=== PATIENT | female | born 1985 | race African-American/Black ===

== ENCOUNTER 2017-10-17 19:10 | Emergency (ER) | payer SELFPAY ==
[2017-10-17 19:11] VITALS: BP 157/100; PULSE 92; RESP 18; TEMP 36.2; O2SAT 99; BMI 40.7
--- NOTE | 2017-10-17 20:32 | RAD_ITS ---
STUDY: X-RAY CHEST REASON FOR EXAM: Female, 32 years old. . Shortness of breath TECHNIQUE: PA and lateral views of the chest. COMPARISON: November 06, 2015 FINDINGS: The lungs are clear and expanded. There is no demonstrated pleural abnormality. Normal size heart. Normal mediastinum and escobar. Normal visualized pulmonary arteries. Normal visualized aortic arch and descending thoracic aorta. Normal visualized thoracic spine. Normal visualized ribs, clavicles, and shoulders. There is no demonstrated abnormality of the visualized soft tissue structures of the upper abdomen. RAD/Chest PA and Lateral IMPRESSION: Normal x-ray examination of the chest. Electronically Signed: Patricio Srinivasan MD at 20:55 EDT , Service support ,
[2017-10-17] MEDS: Oxymetazoline 0.05% 1 SPRAY SPRAY.BTL 2 SPRAY NASAL (20:44)
[2017-10-17] MEDS: Naproxen 500 MG Tablet PO (20:44)
--- NOTE | 2017-10-17 21:21 | ED.VISSUMM ---
- ER Visit Summary Date of Service: 10/17/17 Chief Complaint: Cough and fatigue History of Present Illness: The patient is a 32 F with a 3-4 day history of illness. She states it started out with sore throat that progressed to head and chest congestion. She has cough with thick yellow mucus. She does report wheezing. She reports drainage in the back of her throat and body aches. She denies fever but has had chills. Patient has been taking DayQuil, Sudafed, ibuprofen, and Tylenol. Physical Examination: Vital signs are significant for blood pressure 157/100, otherwise unremarkable. Pulse ox is 99% on room air. Head neck examination reveals TMs to be clear bilaterally. She has clear nasal discharge. She does have mild posterior pharyngeal drainage. Mild bilateral cervical lymphadenopathy is noted. Heart is regular rate and rhythm. Lung sounds are clear. Abdomen is soft nontender. Test Results: Two-view chest x-ray reveals no focal infiltrate. Emergency Department Course and Treatment: Patient was given Mucinex, Naprosyn, Afrin, and albuterol MDI. On repeat evaluation patient states she feels significantly improved and feels that she is breathing much better. Lungs are clear with good air movement. Patient will take the albuterol MDI and Afrin home with her for use. She was decided to get Mucinex [id number]. Treatment Plan: [] Disposition: Discharge Impression: Viral syndrome This note was generated with [employer] dictation software. It may contain incorrect words, spelling, and punctuation that were not noted in review of the chart prior to signing ED Disposition - Plan for ED Patient: Disposition: Home or Assisted Living Chief Complaint: Cold Sx Instructions: ED Viral Syndrome Referrals: Medardo Neumann III, MD [STAFF PHYSICIAN] - As Needed
[2017-10-17] MEDS: guaiFENesin 1,200 MG Tablet 1200 MG PO (21:39)
[2017-10-17 21:45] VITALS: PULSE 80; RESP 16; O2SAT 100
== END 2017-10-17 21:46 | disposition home or self-care (01) ==
PROVIDERS: Emergency Provider Emergency Medicine
DX: B34.9 Viral infection, unspecified (principal); R05 Cough; J02.9 Acute pharyngitis, unspecified; R06.00 Dyspnea, unspecified; M79.1 Myalgia; I10 Essential (primary) hypertension
CPT/HCPCS: 71046; 99283

== ENCOUNTER 2018-06-17 19:42 | Emergency (ER) | payer SELFPAY ==
[2018-06-17 19:42] VITALS: PULSE 62; RESP 19; TEMP 36.7; O2SAT 100; BMI 42.5
--- NOTE | 2018-06-17 20:22 | ED.DCSUM_ITS ---
History of Present Illness Chief Complaint: Complaint Informant: Patient Onset: Days - 2-3 Context: Gradual Onset Timing: Continuous Quality: burning dysuria Location: perineal Current Severity: Moderate Maximum Severity: Moderate Worsened by: urinating Relieved by: nothing Associated Symptoms: urgency, urinary frequency, generalized abd bloating/discomfort Narrative: No back discomfort. Little nausea, no vomiting or fevers. Feels like prior urinary tract infections. No vaginal discharge or bleeding, her last normal menstrual period was about 2 months ago, states she is on control pills but skipped a dose a day or 2 ago because of the nausea. Past Medical History - Allergies and Home Meds Allergies/Adverse Reactions: Allergies No Known Allergies Allergy (Verified 06/17/18 19:42) Primary Care Physician: NOT,DEFINED [NON-STAFF] - Past Medical History: None Lives: With Family Smoking Status: Former smoker Review of Systems All systems negative except as indicated General: Denies: Chills, Fever Cardiovascular: Denies: Chest pain, Palpitations Respiratory: Denies: Dyspnea, Cough Gastrointestinal: Reports: Abdominal pain, Nausea. Denies: Vomiting, Diarrhea, Melena, Hematochezia Genitourinary: Reports: Dysuria, Frequency. Denies: Hematuria Musculoskeletal: Denies: Neck pain, Back pain, Extremity Pain Physical Exam Vital Signs/Narrative: Vital Signs Temp Pulse Resp Pulse Ox 06/17/18 19:42 98.1 F 62 19 H 100 Inital Vital Signs reviewed: Yes General: Well nourished, Well developed, Obese, - - Well-appearing, NAD Head: Normocephalic, Atraumatic Eyes: Perrl, EOMI ENT: Moist mucous membranes, No rhinorrhea Neck: Supple, Nontender Cardiovascular: Regular rate, Regular rhythm, No murmurs Respiratory: No distress, CTA bilaterally, Chest nontender Abdomen: Soft, Nondistended, Normal bowel sounds, Tender - Very mild lateral aspect of bilateral upper quadrants only. Negative for: Guarding, Rebound tenderness Back: Nontender, Normal Inspection. Negative for: CVA tenderness Extremities: Nontender, No edema Skin: Normal color, No rash Neurological: Alert, Oriented x3, Cranial nerves II-XII grossly intact, Normal Strength, Normal Sensation, Normal Gait Psychological: Normal affect Diagnostic/Tx/Re-eval Laboratory Tests 06/17/18 Range/Units 20:20 Urine Color Yellow (Yellow) Urine Clarity Clear (Clear) Urine pH 6.0 (5.0 - 8.0) Ur Specific [place] 1.015 (1.002-1.030) Urine Protein Negative (Negative) mg/dl Urine Glucose (UA) Normal (Normal) mg/dl Urine Ketones Negative (Negative) mg/dl Urine Occult Blood 50 H (Negative) /ul Urine Nitrite Negative (Negative) Urine Bilirubin Negative (Negative) mg/dL Urine Urobilinogen Normal (Normal) mg/dl Ur Leukocyte Esterase 25 H (Negative) /ul Urine RBC 0-5 SEEN (0-5) /hpf Urine WBC 0-5 SEEN (0-5) /hpf Ur Squamous Epith Cells 5-10 SEEN (5-10) /hpf Urine Bacteria 0 SEEN (None Seen) /hpf Urine Mucus 0 SEEN (<or=2+) /hpf Urine Test Negative Negative - Medical Decision Making Urinalysis shows trace leukocyte esterase but no pyuria or any other indicators of infection. She was given a GI cocktail, and her symptoms resolved, she feels much better. I suspect she is having intestinal discomfort, she states eating makes it worse, especially red meat. I do not think she is having biliary colic. We discussed signs and symptoms of that and reasons to return to the ER, otherwise she was given follow-up because she does not have a doctor, as well as a prescription for an H2 radha. She is comfortable with this plan. ED Disposition - Plan for ED Patient: Disposition: Home or Assisted Living Chief Complaint: Complaint Diagnosis: Diffuse abdominal pain Instructions: ED Abdominal Pain Unkn Cause Prescriptions: Ranitidine [Zantac] 150 mg PO DAILY #30 tab Referrals: Fast,Cece, DO [NON-STAFF] - 1 Week if not improving
[2018-06-17 20:23] LABS: Bacteria 0 SEEN /hpf (None Seen); Color, Urine Yellow (Yellow); Glucose, Dipstick Normal (Normal); Ketone-Dipstick Negative (Negative); Leukocyte Esterase-Dipstick 25 /ul (Negative); Mucous, Urine 0 SEEN /hpf (<or=2+); Nitrite-Dipstick Negative (Negative); Occult Blood-Urine 50 /ul (Negative); Protein-Dipstick Negative (Negative); Specific Gravity, Urine 1.015 (1.002-1.030); Urine Bilirubin Dipstick Negative (Negative); Urine Clarity Clear (Clear); Urine Urobilinogen Normal (Normal)
[2018-06-17 20:27] LABS: Internal QC Validated? YES +Cl - CLEAR BKGD
[2018-06-17 20:28] LABS: Pregnancy, Urine Negative Negative
[2018-06-17 20:31] LABS: Red Blood Cells-Urine 0-5 SEEN /hpf (0-5); Squamous Epithelial Cells - UA 5-10 SEEN /hpf (5-10); White Blood Cells 0-5 SEEN /hpf (0-5)
[2018-06-17] MEDS: Ibuprofen 600 MG Tablet PO (20:36)
[2018-06-17] MEDS: Mag Hydrox/Al Hydrox/Simeth 30 ML UDC PO (21:17)
[2018-06-17 22:15] VITALS: PULSE 76; RESP 17; O2SAT 98
--- OUTSIDE RECORDS SUMMARY | 2018-08-04 03:35 | XMS RPT_ITS ---
:1985 Author Organization [facility] Care Team Providers Name Role Phone FILI HERNANDEZ Referring Unavailable FILI HERNANDEZ Referring Unavailable Primay Care Physicia, No Primary Care Unavailable DION THORPE Attending Unavailable Primay Care Physicia, No Primary Care Unavailable Cherri Hendrix Attending Unavailable Primay Care Physicia, No Primary Care Unavailable Marlo Hoffmann Attending Unavailable PROBLEMS PROBLEMS DATE TYPE CONDITION / CODE ATTENDING STATUS SOURCE 09/20/2017 Active Pain in left NA Active [facility] knee / Main [place] M25.562(ICD-10) Repository PROCEDURES PROCEDURES No Procedure Records FoundRESULTS RESULTS EMERGENCY DEPARTMENT Observed: 07/10/2018 Status: F Source: [place] SUMMARY 4:02 PM [facility] [place] [facility] Medical Records Department [address] [place] [address] Emergency Department Summary 07/10/18 1505 MR#: [id number] Acct: [id number] Name: ISRAEL STRICKLAND Rep #: [id number] : 1985 33 From: Marlo Hoffmann MD PCP: Care Physician, No Primary Status: DEP ER - ER Visit Summary Date of Service: 07/10/18 Chief Complaint: Dental pain History of Present Illness: The patient is a 33 F with dental pain for days. The pain is in her left mandibular molar region. It radiates under her left mandible. No other associated symptoms or past medical history. Physical Examination: Afebrile. Hypertensive. Otherwise vitals normal. Alert and oriented. No acute distress. Inspection unremarkable. Patient has some tenderness in the left submandibular region but no discrete masses or lymphadenopathy. Left mandibular gums are tender to palpation without obvious abscess. Inspection of her mouth is unremarkable. Neck unremarkable otherwise. Test Results: None indicated Emergency Department Course and Treatment: Patient has focal dental pain. Patient may have some lymphadenopathy. No evidence of tongue elevation or trismus. Patient treated with Pen-Vee K, Motrin, and referral to dental. Treatment Plan: As above Disposition: Discharge Impression: 1. Dental pain This note was generated with Zenverge dictation software. It may contain incorrect words, spelling, and punctuation that were not noted in review of the chart prior to signing ED Disposition - Plan for ED Patient: Chief Complaint: Dental Referrals: Care Physician,No Primary [Primary Care Provider] - What to do if you have Problems For any increased pain, shortness of breath, bleeding, nausea or vomiting, chest pain, or any unexpected problems, contact your Primary Care Provider. Call [facility] ([phone]) or report to the closest Emergency Room. Call 911 if necessary. 07/10/18 1602 <Electronically signed by Marlo Hoffmann MD> Date Marlo Hoffmann MD Cosigner Signature (If Indicated): Date CC: No Primary Care Physician DISCHARGE INSTRUCTION Observed: 07/10/2018 Status: F Source: [place] 4:01 PM [facility] [place] [facility] Medical Records Department [address] [place] [address] Discharge Instruction 07/10/18 1510 MR#: [id number] Acct: [id number] Name: ISRAEL STRICKLAND N Rep #: [id number] : 1985 33 From: Marlo Hoffmann MD PCP: Care Physician, No Primary Status: DEP ER ED Disposition - Plan for ED Patient: Chief Complaint: Dental Instructions: ED Tooth Pain Prescriptions: Ibuprofen [Motrin] 800 mg PO TID PRN PRN #15 tab PRN Reason: Pain Penicillin V Potassium 500 mg PO Q6H 10 Days #40 tab Referrals: Marylu Bah [NON-STAFF] - What to do if you have Problems For any increased pain, shortness of breath, bleeding, nausea or vomiting, chest pain, or any unexpected problems, contact your Primary Care Provider. Call [facility] ([phone]) or report to the closest Emergency Room. Call 911 if necessary. 07/10/18 1601 <Electronically signed by Marlo Hoffmann MD> Date Marlo Hoffmann MD Cosigner Signature (If Indicated): Date CC: No Primary Care Physician EMERGENCY DEPARTMENT Observed: 06/17/2018 Status: F Source: [place] SUMMARY 10:03 PM [facility] [place] [facility] Medical Records Department [address] [address] Emergency Department Summary 06/17/182012 MR#: [id number] Acct: [id number] Name: ISRAEL STRICKLAND N Rep #: [id number] : 1985 33 From: Dion Thorpe MD PCP: Care Physician, No Primary Status: REG ER History of Present Illness Chief Complaint: Complaint Informant: Patient Onset: Days - 2-3 Context: Gradual Onset Timing: Continuous Quality: burning dysuria Location: perineal Current Severity: Moderate Maximum Severity: Moderate Worsened by: urinating Relieved by: nothing Associated Symptoms: urgency, urinary frequency, generalized abd bloating/discomfort Narrative: No back discomfort. Little nausea, no vomiting or fevers. Feels like prior urinary tract infections. No vaginal discharge or bleeding, her last normal menstrual period was about 2 months ago, states she is on control pills but skipped a dose a day or 2 ago because of the nausea. Past Medical History - Allergies and Home Meds Allergies/Adverse Reactions: Allergies No Known Allergies Allergy (Verified 06/17/18 19:42) Primary Care Physician: NOT,DEFINED [NON-STAFF] - Past Medical History: None Lives: With Family Smoking Status: Former smoker Review of Systems All systems negative except as indicated General: Denies: Chills, Fever Cardiovascular: Denies: Chest pain, Palpitations Respiratory: Denies: Dyspnea, Cough Gastrointestinal: Reports: Abdominal pain, Nausea. Denies: Vomiting, Diarrhea, Melena, Hematochezia Genitourinary: Reports: Dysuria, Frequency. Denies: Hematuria Musculoskeletal: Denies: Neck pain, Back pain, Extremity Pain Physical Exam Vital Signs/Narrative: Vital Signs 06/17/18 19:42 98.1 F 62 19 H 100 Inital Vital Signs reviewed: Yes General: Well nourished, Well developed, Obese, - - Well-appearing, NAD Head: Normocephalic, Atraumatic Eyes: Perrl, EOMI ENT: Moist mucous membranes, No rhinorrhea Neck: Supple, Nontender Cardiovascular: Regular rate, Regular rhythm, No murmurs Respiratory: No distress, CTA bilaterally, Chest nontender Abdomen: Soft, Nondistended, Normal bowel sounds, Tender - Very mild lateral aspect of bilateral upper quadrants only. Negative for: Guarding, Rebound tenderness Back: Nontender, Normal Inspection. Negative for: CVA tenderness Extremities: Nontender, No edema Skin: Normal color, No rash Neurological: Alert, Oriented x3, Cranial nerves II-XII grossly intact, Normal Strength, Normal Sensation, Normal Gait Psychological: Normal affect Diagnostic/Tx/Re-eval Laboratory Tests Urine Color Yellow (Yellow) Urine Clarity Clear (Clear) Urine pH 6.0 (5.0 - 8.0) Ur Specific Noonan 1.015 (1.002-1.030) Urine Protein Negative (Negative) mg/dl - Medical Decision Making Urinalysis shows trace leukocyte esterase but no pyuria or any other indicators of infection. She was given a GI cocktail, and her symptoms resolved, she feels much better. I suspect she is having intestinal discomfort, she states eating makes it worse, especially red meat. I do not think she is having biliary colic. We discussed signs and symptoms of that and reasons to return to the ER, otherwise she was given follow-up because she does not have a doctor, as well as a prescription for an H2 radha. She is comfortable with this plan. ED Disposition - Plan for ED Patient: Disposition: Home or Assisted Living Chief Complaint: Complaint Diagnosis: Diffuse abdominal pain Instructions: ED Abdominal Pain Unkn Cause Prescriptions: Ranitidine [Zantac] 150 mg PO DAILY #30 tab Referrals: Fast,Cece, DO [NON-STAFF] - 1 Week if not improving What to do if you have Problems For any increased pain, shortness of breath, bleeding, nausea or vomiting, chest pain, or any unexpected problems, contact your Primary Care Provider. Call [facility] ([phone]) or report to the closest Emergency Room. Call 911 if necessary. 06/17/182202 <Electronically signed by Dion Thorpe MD> Date Dion Thorpe MD Cosigner Signature (If Indicated): Date CC: No Primary Care Physician URINALYSIS, COMPLETE Collected: 06/17/2018 Status: C Source: [place] 8:20 PM [facility] [place] Order Comment: How was Urine Obtained? CLEAN CATCH TYPE CODE TESTS RESULT OUT OF RANGE REFERENCE UNITS LAB L400.3000 Yellow COLOR Normal Yellow LAB L400.3050 Clear Normal CLARITY Clear LAB L400.3200 Normal mg/dl Normal GLUCOSE, UR Normal LAB L400.3300 Negative mg/dL Normal BILIRUBIN URINE Negative LAB L400.3400 Negative mg/dl Normal KETONE UR Negative LAB L400.3465 1.002-1.030 Normal SP.GR. DIPSTX 1.015 LAB L400.3550 5.0 - 8.0 pH UR Normal 6.0 LAB L400.3600 Negative mg/dl PROT Normal DIPSTX Negative LAB L400.3700 Normal mg/dl Normal UROBILI Normal LAB L400.3750 Negative Normal NITRITE UR Negative LAB L400.3780 Negative /ul High 50 OCCULT BLOOD-UR LAB L400.3800 Negative /ul High LEUK 25 ESTERASE LAB L400.4050 0-5 /hpf WBC Normal 0-5 SEEN Result Comment: AMENDED REPORT 06/17/182030 WBC previously reported as: 0 SEEN /hpf LAB L400.4100 0-5 /hpf Normal RBC-UA 0-5 SEEN Result Comment: AMENDED REPORT 06/17/182030 RBC-UA previously reported as: 0 SEEN /hpf LAB L400.4150 5-10 /hpf Normal SQUAM EPI 5-10 SEEN Result Comment: AMENDED REPORT 06/17/182030 SQUAM EPI previously reported as: 0 SEEN /hpf LAB L400.4300 None Seen /hpf Normal BACTERIA 0 SEEN LAB L400.4350 <or=2+ /hpf Normal MUCUS, URINE 0 SEEN Performed By: #### L400.0001, L400.7600 #### [facility] [address] [place], [place], [address] ,URINE Collected: 06/17/2018 Status: F Source: [place] 8:20 PM [facility] [place] Order Comment: How was Urine Obtained? CLEAN CATCH TYPE CODE TESTS RESULT OUT OF REFERENCE UNITS RANGE LAB L400.8000 Negative Normal HCGUQUAL Negative Result Comment: Very dilute urine specimens, as indicated by a low specific gravity, may not contain underwriting account representative levels of hCG. If is still suspected, a first morning urine specimen should be collected 48 hours later and tested. Performed By: #### L400.0001, L400.7600 #### [facility] [address] [place], [address] Observed: 06/17/2018 Status: F Source: [place] CULTURE, URINE 8:20 PM [facility] [place] Urine Culture ORGANISM 1: Mixed Gram Positive Organisms [place] Count 1000-10,000 MIX CULTURE Mixed contaminants. Submit a new specimen if indicated. Performed By: #### M100.0650 #### [facility] [address] [place], [address] CNCO Observed: 01/15/2018 Status: COMPLETED Source: [place] 12:00 AM [facility] REPOSITORY Letter Text Dion Winkler MD [facility] [address] [place] [address] Israel Tiara Strickland January 15, 2018 Israel Anneten [address] [place] [address] Dear Ms. Strickland, It was noted that you did not keep your scheduled appointment on 01/15/18. It is important to contact the office in advance if you are unable to keep your appointment so that it is available for other patients. Your medical care is important to us. Please call our office to reschedule an appointment. Sincerely, Dion Winkler MD EMERGENCY DEPARTMENT Observed: 10/18/2017 Status: F Source: [place] SUMMARY 10:09 AM [facility] [place] [facility] Medical Records Department [address] [place] [address] Emergency Department Summary 10/17/17 2121 MR#: [id number] Acct: [id number] Name: ISRAEL STRICKLAND Tiara Rep #: [id number] : 1985 32 From: Cherri Hendrix MD PCP: Care Physician, No Primary Status: DEP ER - ER Visit Summary Date of Service: 10/17/17 Chief Complaint: Cough and fatigue History of Present Illness: The patient is a 32 F with a 3- 4 day history of illness. She states it started out with sore throat that progressed to head and chest congestion. She has cough with thick yellow mucus. She does report wheezing. She reports drainage in the back of her throat and body aches. She denies fever but has had chills. Patient has been taking DayQuil, Sudafed, ibuprofen, and Tylenol. Physical Examination: Vital signs are significant for blood pressure 157/100, otherwise unremarkable. Pulse ox is 99% on room air. Head neck examination reveals TMs to be clear bilaterally. She has clear nasal discharge. She does have mild posterior pharyngeal drainage. Mild bilateral cervical lymphadenopathy is noted. Heart is regular rate and rhythm. Lung sounds are clear. Abdomen is soft nontender. Test Results: Two-view chest x-ray reveals no focal infiltrate. Emergency Department Course and Treatment: Patient was given Mucinex, Naprosyn, Afrin, and albuterol MDI. On repeat evaluation patient states she feels significantly improved and feels that she is breathing much better. Lungs are clear with good air movement. Patient will take the albuterol MDI and Afrin home with her for use. She was decided to get Mucinex [id number]. Treatment Plan: [] Disposition: Discharge Impression: Viral syndrome This note was generated with Zenverge dictation software. It may contain incorrect words, spelling, and punctuation that were not noted in review of the chart prior to signing ED Disposition - Plan for ED Patient: Disposition: Home or Assisted Living Chief Complaint: Cold Sx Instructions: ED Viral Syndrome Referrals: Medardo Neumann III, MD [STAFF PHYSICIAN] - As Needed What to do if you have Problems For any increased pain, shortness of breath, bleeding, nausea or vomiting, chest pain, or any unexpected problems, contact your Primary Care Provider. Call [facility] ([phone]) or report to the closest Emergency Room. Call 911 if necessary. 10/18/17 1009 <Electronically signed by Cherri Hendrix MD> Date Cherri Hendrix MD Cosigner Signature (If Indicated): Date CC: No Primary Care Physician DISCHARGE INSTRUCTION Observed: 10/17/2017 Status: F Source: [place] 9:22 PM [facility] Medical Records Department [address] [place] [address] Discharge Instruction 10/17/172120 MR#: [id number] Acct: [id number] Name: ISRAEL STRICKLAND N Rep #: [id number] : 1985 32 From: Cherri Hendrix MD PCP: Care Physician, No Primary Status: REG ER ED Disposition - Plan for ED Patient: Disposition: Home or Assisted Living Chief Complaint: Cold Sx Instructions: ED Viral Syndrome Referrals: Medardo Neumann III, MD [STAFF PHYSICIAN] - As Needed What to do if you have Problems For any increased pain, shortness of breath, bleeding, nausea or vomiting, chest pain, or any unexpected problems, contact your Primary Care Provider. Call [facility] [facility] ([phone]) or report to the closest Emergency Room. Call 911 if necessary. 10/17/172121 <Electronically signed by Cherri Hendrix MD> Date Cherri Hendrix MD Cosigner Signature (If Indicated): Date CC: No Primary Care Physician CHEST PA AND LATERAL Observed: 10/17/2017 Status: F Source: [place] 8:27 PM [facility] [place] [facility] Imaging Services [address] [place] [address] Chest PA and Lateral MR#: [id number] Acct: [id number] Name: ISRAEL STRICKLAND N Rep #: [id number] : 1985 F 32 From: Dion Srinivasan MD PCP: Care Physician, No Primary Status: REG ER Study: Chest PA and Lateral Date of Exam: 10/17/17 Exam# [id number] Ordering Dr: Cherri Hendrix MD STUDY: X-RAY CHEST REASON FOR EXAM: Female, 32 years old. . Shortness of breath TECHNIQUE: PA and lateral views of the chest. COMPARISON: November 06, 2015 FINDINGS: The lungs are clear and expanded. There is no demonstrated pleural abnormality. Normal size heart. Normal mediastinum and escobar. Normal visualized pulmonary arteries. Normal visualized aortic arch and descending thoracic aorta. Normal visualized thoracic spine. Normal visualized ribs, clavicles, and shoulders. There is no demonstrated abnormality of the visualized soft tissue structures of the upper abdomen. RAD/Chest PA and Lateral IMPRESSION: Normal x-ray examination of the chest. Electronically Signed: Dion Srinivasan MD at 20:55 EDT , Service support , CC: No Primary Care Physician; Cherri Hendrix MD Spaghetti Machine Operator: Signed XR KNEE 3V AP/LAT/MERCHANT Observed: 09/20/2017 Status: F Source: [facility] 3:29 PM [facility] REPOSITORY * * *Final Report* * * DATE OF EXAM: Sep 20 2017 3:29PM WOX 5208 - XR KNEE 3V AP/LAT/MERCHANT LT / PROCEDURE REASON: Pain in left knee * * * * Physician Interpretation * * * * HISTORY: pt states pain for over a month in left knee mostly all anterior with some swelling superior and lateral to the patella no inj. Pain in left knee . TECHNIQUE: XR KNEE 3V AP/LAT/MERCHANT LT Laterality: LEFT Number of different views (projections): 3 COMPARISON: None RESULT: Suprapatellar effusion. Remote opacification of the distal patellar tendon. No fracture. Minimal degenerative changes in the patellofemoral articulation. IMPRESSION: Mild degenerative changes. Spaghetti Machine Operator: JOVITA Transcribe Date/Time: Sep 21 2017 8:43A Dictated by : ELISE FROST MD This examination was interpreted and the report reviewed and electronically signed by: ELISE FROST MD on Sep 21 2017 8:45AM EST [id number] PROGRESS Observed: 09/20/2017 Status: COMPLETED Source: [place] 3:11 PM [facility] [place] REPOSITORY HNO ID: [id number] Author: Anne Burger (Rt) Jocelyn oMffett Service: (none) Author Type: [place] Type: Progress Notes Filed: 09/20/2017 3:29 PM Note Text: Radiology Service Progress Note PATIENT NAME: Israel Strickland DATE OF SERVICE: September 20, 2017 TIME: 3:11 PM PATIENT IDENTITY VERIFICATION COMPLETED USING TWO (2) METHODS: Patient confirmed name verbally and Date of . PATIENT GENDER DATA: Female. status: : No status: NO. PATIENT RELEVANT IMPLANT DATA REVIEWED: Not Applicable RADIOLOGY DEPARTMENT: General X-ray: Exam(s) Completed: Lower Extremity X-Ray(s): Knee, AP / Lat / Merchant Left: PERIPHERAL IV DATA: Not applicable SIGNED BY: RT Norma September 20, 2017 3:11 PM PROGRESS Observed: 09/20/2017 Status: COMPLETED Source: [place] 2:45 PM [facility] REPOSITORY HNO ID: [id number] Author: Fili Hernandez Service: (none) Author Type: Physician Type: Progress Notes Filed: 09/20/2017 3:48 PM Note Text: Patient presents with: Left Knee Pain: x over 1 month-cannot recall an injury but hears a crunching noise in knee HPI: Left knee pain: Duration: probably a couple months Location: Left knee Character: Tight pain Radiation: Into the back of the knee Aggravating: bending, climbing stairs, lifting,standing and walking for extended periods Relieving: Ice, elevation Pain relievers: Motrin Associated: Crepitus, swelling Pertinent negatives: Denies known injury MEDICATIONS: No prescriptions on file. ALLERGIES: ALLERGIES No Known Allergies VITALS: BP 128/82 Pulse 72 Temp 36.1 ?C (97 ?F) (Tympanic) Resp 18 Wt 113 kg (249 lb 3.2 oz) BMI 41.47 kg/m2 PE: Pleasant, in no acute distress. KNEE: left compared to right. Small fullness above the left patella. FROM with pain. Left patellar crepitus. Patellar and medial/lateral joint line tenderness. Stable to varus and valgus strain. Negative anterior drawer test. Negative posterior drawer test. Limping gait. ASSESSMENT/PLAN: 1. Acute pain of left knee - ICD9: 719.46, ICD10: M25.562 - XR KNEE POST OP 3V AP/LAT/MERCHANT LT - no fractures. Tibial tuberosity island and proximal fibular neck enlargement unchanged compared to 2014. - MELOXICAM 15 MG TABLET. Instructed not to take with ibuprofen. She may use tylenol if needed for additional pain relief. F/u with ortho if not improving. Fili Hernandez MD CNOV Observed: 09/20/2017 Status: COMPLETED Source: [place] 2:30 PM [facility] REPOSITORY [facility] ISRAEL STRICKLAND ([id number]) 1985 F Date Time Provider Department 09/20/17 2:30 PM FILI HERNANDEZ [facility] During your visit today, we recorded the following information about you: Temperature Pulse Respiration Blood pressure 97 degrees 72/minute 18/minute 128/82 Weight 113 kg Fili Hernandez MD 09/20/2017 3:48 PM Signed Patient presents with: Left Knee Pain: x over 1 month-cannot recall an injury but hears a crunching noise in knee HPI: Left knee pain: Duration: probably a couple months Location: Left knee Character: Tight pain Radiation: Into the back of the knee Aggravating: bending, climbing stairs, lifting,standing and walking for extended periods Relieving: Ice, elevation Pain relievers: Motrin Associated: Crepitus, swelling Pertinent negatives: Denies known injury MEDICATIONS: No prescriptions on file. ALLERGIES: ALLERGIES No Known Allergies VITALS: BP 128/82 Pulse 72 Temp 36.1 ?C (97 ?F) (Tympanic) Resp 18 Wt 113 kg (249 lb 3.2 oz) BMI 41.47 kg/m2 PE: Pleasant, in no acute distress. KNEE: left compared to right. Small fullness above the left patella. FROM with pain. Left patellar crepitus. Patellar and medial/lateral joint line tenderness. Stable to varus and valgus strain. Negative anterior drawer test. Negative posterior drawer test. Limping gait. ASSESSMENT/PLAN: 1. Acute pain of left knee - ICD9: 719.46, ICD10: M25.562 - XR KNEE POST OP 3V AP/LAT/MERCHANT LT - no fractures. Tibial tuberosity island and proximal fibular neck enlargement unchanged compared to 2014. - MELOXICAM 15 MG TABLET. Instructed not to take with ibuprofen. She may use tylenol if needed for additional pain relief. F/u with ortho if not improving. Fili Hernandez MD Referring Provider: SELF [200] Allergies As of Date: 09/20/2017 (No Known Allergies) Date Reviewed: 09/20/2017 Reviewed by: Paige Jimenez LPN - Fully Assessed Reason for Visit: Left Knee Pain [1208] Cmt: x over 1 month-cannot recall an injury but hears a crunching noise in knee Primary Visit Diagnosis:Acute pain of left knee [M25.562] Order(s):XR KNEE POST OP 3V AP/LAT/MERCHANT LT [[id number]] Order #: [id number] FUTURE meloxicam (MOBIC) 15 mg tabletTake 1 tablet by mouth once daily. With food.Disp: 30 tabletRfl: 0 Prescriptions as of 09/20/2017 Sig: MELOXICAM 15 MG TABLET Take 1 tablet by mouth once d* Medication notes this encounter MELOXICAM 15 MG TABLET >> Paige Besancon [facility] 09/20/2017 2:35 PM >> SCARLETTANCPAIGE TROY LPN [facility] Sep 20, 2017 2:35 PM Not Taking CYCLOBENZAPRINE 10 MG TABLET >> Paige Pantojaancon [facility] 09/20/2017 2:35 PM >> PAIGE JIMENEZ LPN [facility] Sep 20, 2017 2:35 PM Not Taking HYDROCHLOROTHIAZIDE 25 MG TABLET >> Paige Scarlettancon [facility]SELING AIDE 09/20/2017 2:35 PM >> PAIGE JIMENEZ LPN [facility] Sep 20, 2017 2:35 PM Not Taking IBUPROFEN 800 MG TABLET >> Paige Jimenez [facility] 09/20/2017 2:36 PM >> PAIGE JIMENEZ LPN [facility] Sep 20, 2017 2:36 PM Not Taking Problem List As Of Date 09/20/2017 Noted Resolved Screening for malignant neoplasm of the cervix *INVALID FOR* Priority: C Amenorrhea, secondary [N91.1] INVALID FOR* Priority: C PIH ( induced hypertension) [O13.9] Obesity [E66.9] Priority: B Pancreatitis [K85.90] Priority: B More... Excessive or frequent menstruation [N92.0] INVALID FOR* Priority: C Dysmenorrhea [N94.6] INVALID FOR* Priority: C Gallbladder polyp [K82.4] INVALID FOR* Priority: B More... Mixed hyperlipidemia [E78.2] INVALID FOR* Priority: A Right leg pain [M79.604] INVALID FOR* Prescriptions ordered this encounter Disp Refills Start End MELOXICAM 15 MG TABLET 30 t* 0 09/20/2017 10/20/2017 Route: ORAL Sig: Take 1 tablet by mouth once daily. With food. Medications Discontinued During This Encounter predniSONE (DELTASONE) 10 mg tablet 39 t* 0 04/09/2015 09/20/2017 Sig: Take 6 tabs by mouth for 3 days then 4 tabs a day for 3 days then 2 tabs a day for 3 days and then 1 tab a day for 3 days. Disc: Reason for discontinue is not on file. ibuprofen (MOTRIN) 800 mg tablet 90 t* 3 04/12/2015 09/20/2017 Route: ORAL Sig: Take 1 tablet by mouth every 6 hours as needed. Disc: Reason for discontinue is not on file. hydrochlorothiazide (HYDRODIURIL, ES* 30 t* 0 07/26/2015 09/20/2017 Route: ORAL Sig: Take 1 tablet by mouth once daily. Disc: Reason for discontinue is not on file. cyclobenzaprine (FLEXERIL) 10 mg tab* 20 t* 0 09/23/2015 09/20/2017 Route: ORAL Sig: Take 1 tablet by mouth twice daily as needed. Disc: Reason for discontinue is not on file. meloxicam (MOBIC) 15 mg tablet 30 t* 2 09/23/2015 09/20/2017 Route: ORAL Sig: Take 1 tablet by mouth once daily. Disc: Reason for discontinue is not on file. Letter Text [place] [facility] [address] [place], [place] [address] 09/20/2017 Israel Strickland [facility]# [id number] [address] [place] [address] TO WHOM IT MAY CONCERN: This is to confirm that Israel Strickland had an appointment and was seen at the [facility] in the Department of Urgent Care by Fili Hernandez MD on 09/20/2017. Sincerely , Fili Hernandez MD Encounter Status:Closed by FILI HERNANDEZ MD on 09/20/17 ALLERGIES ALLERGIES DATE TYPE / CODE NAME / CODE REACTION SEVERITY SOURCE 07/10/2018 Drug No Known Unknown [facility] Allergy/416 Allergies/[id number] Hospital [id number](SNOM 0388(RXNORM) Repository ED CT) Drug NO KNOWN [facility] Class/03451 ALLERGIES [place] 1003(SNOMED Repository CT) ENCOUNTERS ENCOUNTERS ADMIT/DISCHARGE ACCOUNT ADMITTING ENCOUNTER LOCATION SOURCE NUMBER CLASS 07/10/2018/07/10/19 [id number] Emergency [address] ing:ED Repository 06/17/2018/06/17/20 [id number] Emergency [address] ing:ED Repository 10/17/2017/10/18/19 [id number] Emergency [address] ing:ED Repository 09/20/2017/09/21/19 [id number] Ambulatory [address] Repository 09/20/2017 [id number] Ambulatory [facility] Repository 09/20/2017/09/22/19 [id number] Ambulatory [address] Repository PAYERS PAYERS ENCOUNTER GUARANTOR PAYER SUBSCRIBER SOURCE 07/10/2018 ISRAEL Menjivar Primary NOT GIVENUNK [place] [id number] Insurance:SELF PAY [address] Number: Effective Repository [id number]: [phone] Date:2018-07-10 [phone] () 06/17/2018 ISRAEL Menjivar Primary NOT GIVENUNK [place] [id number] Insurance:SELF PAY [facility] [address] Number: Effective Repository [phone]: [phone] Date:2018-06-17 [phone] () 10/17/2017 Israel Menjivar Primary NOT GIVENKAREN [id number] Insurance:SELF PAY [facility] [address]Zzn: Number: Effective Repository Date:2017-10-17 ()
== END 2018-06-17 22:37 | disposition home or self-care (01) ==
PROVIDERS: Emergency Provider Emergency Medicine
DX: R10.84 Generalized abdominal pain (principal); R30.0 Dysuria; R39.15 Urgency of urination; R35.0 Frequency of micturition; E66.9 Obesity, unspecified; Z79.3 Long term (current) use of hormonal contraceptives; Z87.440 Personal history of urinary (tract) infections; Z87.891 Personal history of nicotine dependence
CPT/HCPCS: 81001; 81025; 87086; 87088; 99283

== ENCOUNTER 2018-07-10 14:40 | Emergency (ER) | payer SELFPAY ==
[2018-07-10 14:41] VITALS: BP 162/105; PULSE 80; RESP 18; TEMP 36.7; O2SAT 97; BMI 46.2
--- NOTE | 2018-07-10 15:05 | ED.VISSUMM ---
- ER Visit Summary Date of Service: 07/10/18 Chief Complaint: Dental pain History of Present Illness: The patient is a 33 F with dental pain for days. The pain is in her left mandibular molar region. It radiates under her left mandible. No other associated symptoms or past medical history. Physical Examination: Afebrile. Hypertensive. Otherwise vitals normal. Alert and oriented. No acute distress. Inspection unremarkable. Patient has some tenderness in the left submandibular region but no discrete masses or lymphadenopathy. Left mandibular gums are tender to palpation without obvious abscess. Inspection of her mouth is unremarkable. Neck unremarkable otherwise. Test Results: None indicated Emergency Department Course and Treatment: Patient has focal dental pain. Patient may have some lymphadenopathy. No evidence of tongue elevation or trismus. Patient treated with Pen-Vee K, Motrin, and referral to dental. Treatment Plan: As above Disposition: Discharge Impression: 1. Dental pain This note was generated with [employer] dictation software. It may contain incorrect words, spelling, and punctuation that were not noted in review of the chart prior to signing ED Disposition - Plan for ED Patient: Chief Complaint: Dental Referrals: Care Physician,No Primary [Primary Care Provider] -
--- NOTE | 2018-07-10 15:10 | ED.DEP ---
ED Disposition - Plan for ED Patient: Chief Complaint: Dental Instructions: ED Tooth Pain Prescriptions: Ibuprofen [Motrin] 800 mg PO TID PRN PRN #15 tab PRN Reason: Pain Penicillin V Potassium 500 mg PO Q6H 10 Days #40 tab Referrals: Marylu Bah [NON-STAFF] -
--- NOTE | 2018-07-10 15:10 | ED.DCSUM_ITS ---
- ER Visit Summary Date of Service: 07/10/18 Chief Complaint: Dental pain History of Present Illness: The patient is a 33 F with dental pain for days. The pain is in her left mandibular molar region. It radiates under her left mandible. No other associated symptoms or past medical history. Physical Examination: Afebrile. Hypertensive. Otherwise vitals normal. Alert and oriented. No acute distress. Inspection unremarkable. Patient has some tenderness in the left submandibular region but no discrete masses or lymphadenopathy. Left mandibular gums are tender to palpation without obvious abscess. Inspection of her mouth is unremarkable. Neck unremarkable otherwise. Test Results: None indicated Emergency Department Course and Treatment: Patient has focal dental pain. Patient may have some lymphadenopathy. No evidence of tongue elevation or trismus. Patient treated with Pen-Vee K, Motrin, and referral to dental. Treatment Plan: As above Disposition: Discharge Impression: 1. Dental pain This note was generated with [employer] dictation software. It may contain incorrect words, spelling, and punctuation that were not noted in review of the chart prior to signing ED Disposition - Plan for ED Patient: Chief Complaint: Dental Referrals: Care Physician,No Primary [Primary Care Provider] -
[2018-07-10] MEDS: Ibuprofen 600 MG Tablet PO (15:42)
[2018-07-10] MEDS: Penicillin Vk 250 MG Tablet 500 MG PO (15:43)
[2018-07-10 15:53] VITALS: PULSE 78; RESP 14; O2SAT 99
== END 2018-07-10 15:54 | disposition home or self-care (01) ==
PROVIDERS: Emergency Provider Emergency Medicine
DX: K08.89 Other specified disorders of teeth and supporting structures (principal); I10 Essential (primary) hypertension
CPT/HCPCS: 99283

== ENCOUNTER 2018-10-09 18:26 | Emergency (ER) | payer BC, SELFPAY ==
[2018-10-09 18:27] VITALS: BP 216/139; PULSE 66; RESP 18; TEMP 35.8; O2SAT 100; BMI 46.0
[2018-10-09 19:34] VITALS: BP 140/70
[2018-10-09] MEDS: predniSONE 20 MG Tablet 60 MG PO (19:51)
[2018-10-09 20:00] VITALS: BP 134/82
[2018-10-09 20:05] LABS: Absolute Lymphocyte Count 2.54 X10^3/ul (0.83-4.51); Absolute Neutrophil Count 6.3 X10^3/uL (2.0-7.7); Basophil# 0.04 X10^3/uL; Basophil% 0.4 % (0-1); Eosinophil# 0.21 X10^3/uL; Eosinophils% 2.2 % (0-5); Hematocrit 40.2 % (37-47); Hemoglobin 13.1 g/dl (12.0-15.0); Lymphocyte # 2.54 X10^3/ul (4.0); Lymphocyte % 26.5 % (19-41); Mean Corp Hgb Conc 32.6 g/gl (32-36); Mean Corpuscular Hgb 30.6 pg (27.0-32.0); Mean Corpuscular Volume 93.9 fL (81-99); Mean Platelet Vol. 9.5 fl (6.2-12.0); Monocyte# 0.46 X10^3/uL; Monocyte% 4.8 % (0-10); Neutrophil # 6.32 X10^3/uL (2.7-7.7); Neutrophil % 65.9 % (47-70); Platelet Count 307 K/mm3 (150-450); RBC Distribution Width CV 12.7 % (11.6-14.6); RBC Distribution Width SD 43.1 fl (35.1-43.9); Red Blood Count 4.28 M/mm3 (4.2-5.4); White Blood Count 9.6 K/mm3 (4.4-11.0)
[2018-10-09 20:08] LABS: POSITIVE COUNT NO; POSITIVE DIFFERENTIAL NO; POSITIVE MORPHOLOGY NO
[2018-10-09 20:10] VITALS: BP 140/72
[2018-10-09 20:14] LABS: Anion Gap 5 (5-15); BUN 18 mg/dL (7-18); Calcium,Total 8.6 mg/dL (8.5-10.1); Chloride 105 mmol/L (98-107); Creatinine, Serum 0.82 mg/dL (0.55-1.02); EST Glomerular Filtration Rate 84 mL/min (>60); Est Glom Filt Rate - Afr Amer 102 mL/min (>60); Estimated Creatinine Clearance 79.97 ml/min; Glucose 110 mg/dL (74-106); Potassium 3.6 mmol/L (3.5-5.1); Sodium Level 138 mmol/L (136-145)
[2018-10-09 20:15] VITALS: BP 139/80
--- NOTE | 2018-10-09 21:17 | ED.DCSUM_ITS ---
- ER Visit Summary Date of Service: 10/09/18 Chief Complaint: Right hip pain History of Present Illness: The patient is a 33 F complains of radiating right hip pain down to her feet for the past month. Worse with bending. No loss of bowel or bladder control. Has been told she has sciatica in the past. No injuries. Does work on her feet standing. Has been using naproxen and ibuprofen. Addition was found to have elevated blood pressure in triage of 216/139. Was put on hydrochlorothiazide a year ago but did not follow-up. Try to get reestablished, mother states will take to see Dr. Ferguson. Reports blood pressure always high. Denies chest pains headaches, nausea or vomiting or urinary symptoms. Physical Examination: General: Alert and oriented ?3, no acute distress HEENT: Normocephalic, atraumatic. Moist mucosa membranes Neck: supple, nontender. Cardiovascular: Regular rate and rhythm, no murmurs Respiratory: Normal breath sounds, symmetric, no distress Abdomen: Soft, nontender, nondistended Extremities: right LE: neg log roll, straight leg negative. TTP piriformis/SI joint. Neuro: no focal neurological deficits. Test Results: Hemoglobin 13.1, creatinine 0.88 Emergency Department Course and Treatment: Patient presenting with sciatica symptoms. Elevated blood pressure. Asymptomatic. Discussed to avoid NSAIDs due to her blood pressure. Is not diabetic therefore steroids were started. Sh manjinder will use Tylenol. Labs obtained due to her elevated blood pressure stable. However recheck multiple blood pressure after triage was remaining in the 130s over 80s. We will not start blood pressure medicines at this time. She will keep a log of her blood pressure in the morning at night and take the PCP. Work note given. All questions answered. Treatment Plan: [] Disposition: Discharge Impression: 1. Sciatica 2. Elevated blood pressure This note was generated with [employer] dictation software. It may contain incorrect words, spelling, and punctuation that were not noted in review of the chart prior to signing ED Disposition - Plan for ED Patient: Disposition: Home or Assisted Living Diagnosis: Sciatica, Elevated blood pressure Instructions: ED Sciatica, Controlling High Blood Pressure Prescriptions: predniSONE tablet 60 mg PO DAILY #15 tablet Referrals: Care Physician,No Primary [Primary Care Provider] - Blu Ferguson MD [STAFF PHYSICIAN] - 3-5 Days Additional Instructions: Initial blood pressure 216/139. Multiple rechecks without interventions 130s over 80s. Keep a log of your blood pressure in the morning and at night. Take steroid medication for your sciatica symptoms. Avoid anti-inflammatories tonight elevated blood pressure. Can use Tylenol as needed.
== END 2018-10-09 21:31 | disposition home or self-care (01) ==
PROVIDERS: Emergency Provider Emergency Medicine
DX: M54.31 Sciatica, right side (principal); I10 Essential (primary) hypertension
CPT/HCPCS: 80048; 85025; 99284; A4216

== ENCOUNTER → 2018-10-15 10:17 | Outpatient (CLI) | payer BC, SELFPAY ==
[2018-10-15 09:24] VITALS: BMI 43.4
[2018-10-15 12:35] LABS: Cholesterol 255 mg/dL (200); High Density Lipoprotein 52 mg/dL; Triglycerides 148 mg/dL; Very Low Density Lipoprotein 30 mg/dL (5-40)
[2018-10-15 12:45] LABS: Hemoglobin A1c 5.9 % (4.2-6.3)
== END ==
LOC: BIMLAB 10:18
PROVIDERS: Family Provider Internal Medicine; PCP Internal Medicine; Visit Provider Internal Medicine
DX: I10 Essential (primary) hypertension (principal); E66.9 Obesity, unspecified
CPT/HCPCS: 36415; 80061; 83036

== ENCOUNTER → 2018-11-22 10:07 | Outpatient (CLI) | payer BC, SELFPAY ==
[2018-11-22 09:35] VITALS: BMI 43.4
[2018-11-22 12:32] LABS: Anion Gap 4 (5-15); BUN 19 mg/dL (7-18); BUN/Creat Ratio 23.3 RATIO (10-20); Calcium,Total 8.8 mg/dL (8.5-10.1); Chloride 106 mmol/L (98-107); Creatinine, Serum 0.81 mg/dL (0.55-1.02); EST Glomerular Filtration Rate 85 mL/min (>60); Est Glom Filt Rate - Afr Amer 103 mL/min (>60); Glucose 99 mg/dL (74-106); Potassium 4.1 mmol/L (3.5-5.1); Sodium Level 140 mmol/L (136-145)
== END ==
LOC: BIMLAB 10:08
PROVIDERS: Family Provider Internal Medicine; PCP Internal Medicine; Visit Provider Internal Medicine
DX: I10 Essential (primary) hypertension (principal)
CPT/HCPCS: 36415; 80048

== ENCOUNTER 2018-12-05 03:02 | Emergency (ER) | payer BC, SELFPAY ==
[2018-11-22 09:35] VITALS: BMI 43.4
[2018-12-05 03:03] VITALS: BP 154/89; PULSE 60; RESP 15; TEMP 36.6; O2SAT 97; BMI 46.3
--- NOTE | 2018-12-05 03:09 | ED.RN ---
TOOK ALIEVE AT 2300 PER PT FOR PAIN
--- NOTE | 2018-12-05 04:33 | ED.DCSUM_ITS ---
- ER Visit Summary Date of Service: 12/05/18 Chief Complaint: Dental pain History of Present Illness: The patient is a 33 F presenting with dental pain. Patient states this started yesterday. She has pain left lower tooth. She felt her tooth crack yesterday. She has tried Aleve at home. She denies fever. Denies other complaints. She does not currently have a dentist. Physical Examination: Vitals are stable. Patient is afebrile. Alert no acute distress. HEENT exam left lower molar fracture, no surrounding fluctuance. No sublingual edema. Neck is supple. Lungs are clear and equal bilaterally. Heart is regular rate and rhythm. Skin is warm and dry. Remainder of exam is unremarkable. Emergency Department Course and Treatment: [place] temporary sealant was placed. Patient had improvement of her pain. She is given a short course of [place] and penicillin. Advised to follow-up with dentist. She is given the dental referral list. Advised return to ED for worsening complaints. Disposition: Discharge home Impression: Odontalgia, dental fracture This note was generated with [employer] dictation software. It may contain incorrect words, spelling, and punctuation that were not noted in review of the chart prior to signing ED Disposition - Plan for ED Patient: Instructions: ED Tooth Pain Prescriptions: Hydrocodone Bitart/Apap 5-325 [[place] 5MG-325MG] 1 tablet PO Q6H PRN PRN 3 Days #10 tablet PRN Reason: Pain Penicillin V Potassium 500 mg PO 4X/DAY #40 tablet Referrals: Blu Ferguson MD [Primary Care Provider] -
--- NOTE | 2018-12-05 04:40 | ED.RN ---
PT GOT A CUP OF COFFEE AND A BAG OF CHIPS FROM THE VENDING MACHINE
--- NOTE | 2018-12-05 04:59 | ED.DEP ---
ED Disposition - Plan for ED Patient: Instructions: ED Tooth Pain Prescriptions: Hydrocodone Bitart/Apap 5-325 [[place] 5MG-325MG] 1 tablet PO Q6H PRN PRN 3 Days #10 tablet PRN Reason: Pain Penicillin V Potassium 500 mg PO 4X/DAY #40 tablet Referrals: Blu Ferguson MD [Primary Care Provider] -
[2018-12-05] MEDS: Penicillin Vk 250 MG Tablet 500 MG PO (05:08)
[2018-12-05] MEDS: HYDROcodone Bitartrate/Apap 5/325 Tablet PO ×2 (05:08)
[2018-12-05 05:09] VITALS: BP 148/59; PULSE 80; RESP 17; O2SAT 98
== END 2018-12-05 05:11 | disposition home or self-care (01) ==
LOC: ED 03:40
PROVIDERS: Emergency Provider Emergency Medicine; Family Provider Internal Medicine; PCP Internal Medicine
DX: K08.89 Other specified disorders of teeth and supporting structures (principal); S02.5XXA Fracture of tooth (traumatic), initial encounter for closed fracture; X58.XXXA Exposure to other specified factors, initial encounter; Y93.9 Activity, unspecified; Y92.9 Unspecified place or not applicable; Y99.9 Unspecified external cause status; I10 Essential (primary) hypertension
CPT/HCPCS: 99283

== ENCOUNTER 2018-12-20 09:03 | Emergency (ER) | payer BC, SELFPAY ==
[2018-12-20 09:05] VITALS: BP 157/108; PULSE 67; RESP 19; TEMP 36.1; O2SAT 100; BMI 41.3
--- NOTE | 2018-12-20 09:13 | ED.VISSUMM ---
- ER Visit Summary Date of Service: 12/20/18 Chief Complaint: [Dental pain] History of Present Illness: The patient is a 33 F [presents the emergency department with complaint of dental pain that started last evening. Patient was seen 2 days ago at the [facility] and started on amoxicillin for suspected dental infection. Patient denies any trauma to her teeth. She denies any fevers. Patient states the pain became more unbearable last evening.] Physical Examination: [HEENT-PERRLA, EOMI. Cranial nerves II through XII grossly intact. TMs clear. Mucous membranes moist. No adenopathy. Dentition-patient has tenderness palpation over left upper second molar. No gingival erythema or abscess noted. No facial cellulitis. Cardiovascular-regular rate and rhythm without murmur or ectopy Lungs-clear to auscultation, chest wall stable without crepitus or subcu emphysema Abdomen-normoactive bowel sounds, soft, nontender, no rebound or rigidity, no peritoneal signs. Extremities-intact ?4, normal range of motion, normal pulses, atraumatic] Test Results: [None indicated] Emergency Department Course and Treatment: [] Treatment Plan: [Patient will be given a prescription for [place] for pain. Advised to follow-up with her dentist.] Disposition: [Discharged home in stable condition] Impression: [Dental pain] This note was generated with [employer] dictation software. It may contain incorrect words, spelling, and punctuation that were not noted in review of the chart prior to signing ED Disposition - Plan for ED Patient: Referrals: Blu Ferguson MD [Primary Care Provider] -
--- NOTE | 2018-12-20 09:15 | ED.DEP ---
ED Disposition - Plan for ED Patient: Instructions: ED Tooth Pain Prescriptions: Hydrocodone Bitart/Apap 5-325 [[place] 5MG-325MG] 1 tab PO Q4H PRN PRN 2 Days #14 tab PRN Reason: Pain Additional Instructions: see a dentist
--- NOTE | 2018-12-20 09:20 | ED.RN ---
DISCHARGE INSTRUCTIONS GIVEN TO AND REVIEWED WITH PATIENT, PATIENT DENIES QUESTIONS OR CONCERNS AND VOICES UNDERSTANDING OF DISCHARGE INSTRUCTIONS. PT AMBULATES OUT OF ROOM WITHOUT ISSUE.
== END 2018-12-20 09:21 | disposition home or self-care (01) ==
LOC: ED 09:18
PROVIDERS: Emergency Provider Emergency Medicine; Family Provider Internal Medicine; PCP Internal Medicine
DX: K08.89 Other specified disorders of teeth and supporting structures (principal)
CPT/HCPCS: 99282

== ENCOUNTER → 2019-03-11 14:00 | Outpatient (CLI) | payer BC, SELFPAY ==
[2019-03-11 15:36] VITALS: BMI 41.3
== END ==
LOC: BIMLAB 03-12 08:49
PROVIDERS: Family Provider Internal Medicine; PCP Internal Medicine; Visit Provider Nurse Practitioner Family
DX: J02.9 Acute pharyngitis, unspecified (principal)
CPT/HCPCS: 87081

== ENCOUNTER 2019-09-08 18:50 | Emergency (ER) | payer BC, SELFPAY ==
[2019-03-27 08:13] VITALS: BMI 41.3
[2019-09-08 18:55] VITALS: BP 157/121; PULSE 87; RESP 18; TEMP 37.3; O2SAT 100; BMI 38.7
--- NOTE | 2019-09-08 19:09 | ED.VIS.GEN ---
History of Present Illness Chief Complaint: Lower Extremity Injury Detail of Chief Complaint: Left knee injury Informant: Patient Onset: Today Current Severity: Moderate Maximum Severity: Moderate Narrative: Patient presents via EMS with left knee injury. Patient states that she was standing on a small step stool trying to hang up her curtains when the stool buckled and she fell. She believes her left knee got caught underneath her. She denies prior injury to her left knee. No prior surgeries or injections to that area. She denies paresthesia. She denies any other injury from the fall. - Past Medical History (1) Rheumatoid arthritis Status: Chronic (2) Hyperlipidemia Status: Chronic (3) Hypertension Status: Chronic Past Medical History - Allergies and Home Meds Allergies/Adverse Reactions: Allergies No Known Allergies Allergy (Verified 03/27/19 09:24) Primary Care Physician: Blu Ferguson MD [Primary Care Provider] - Prior records reviewed: Yes Lives: With Family Smoking Status: Former smoker Review of Systems General: Denies: Chills, Fever Eyes: Denies: Visual changes - bilaterally ENT: Denies: Bilateral ear pain Cardiovascular: Denies: Chest pain Respiratory: Denies: Dyspnea, Cough Gastrointestinal: Denies: Abdominal pain, Nausea, Vomiting, Diarrhea Genitourinary: Denies: Dysuria Musculoskeletal: Reports: Extremity Pain Skin: Denies: Rash, Wounds Neurological: Denies: Parasthesia, Numbness Psych: Denies: Depression Hematologic: Denies: Easy bruising, Easy bleeding Allergy: Denies: Uticaria Physical Exam Vital Signs/Narrative: Vital Signs Temp Pulse Resp BP Pulse Ox 09/08/19 18:55 99.2 F H 87 18 157/121 H 100 Inital Vital Signs reviewed: Yes General: Well nourished, Well developed Head: Normocephalic ENT: Moist mucous membranes Neck: Supple Cardiovascular: Regular rate, Regular rhythm Respiratory: No distress, CTA bilaterally Abdomen: Soft, Nontender Extremities: - - Tenderness outpatient left knee, worse along the lateral joint line. No significant edema. Strong distal pulses with normal cap refill. No tenderness of the calf or thigh. Neurological: Alert, Oriented x3 Psychological: Normal affect Diagnostic/Tx/Re-eval Impressions Knee X-Ray 09/08/19 19:28 IMPRESSION: No fracture or dislocation. Mild tricompartmental degenerative changes. Electronically Signed: Fidencio Montes De Oca, at 19:43 EST Tel , Service support , 09/08/19 19:28 Knee 4 or More Views [RAD] Stat - Medical Decision Making Patient was given Alicia for pain. On repeat evaluation she feels much improved. Reza wrap will be applied and she will be given crutches. She may weight-bear as tolerated. She will follow-up with Dr. Winkler if not improving. ED Disposition - Plan for ED Patient: Disposition: Home or Assisted Living Diagnosis: Left knee sprain Instructions: Knee Sprain Prescriptions: Hydrocodone Bitart/Apap 5-325 [[place] 5MG-325MG] 1 tablet PO Q6H PRN PRN 3 Days #10 tablet PRN Reason: Pain Transmission Status: Received by [id number] Referrals: Blu Ferguson MD [Primary Care Provider] - Patricio Winkler MD [STAFF PHYSICIAN] - 1 Week if not improving
[2019-09-08] MEDS: HYDROcodone Bitartrate/Apap 5/325 Tablet PO (19:18)
--- NOTE | 2019-09-08 19:28 | RAD_ITS ---
STUDY: X-RAY - LEFT KNEE REASON FOR EXAM: Female, 34 years old. Fall TECHNIQUE: 4 view(s) of the knee. COMPARISON: None. FINDINGS: There is no evidence of fracture or dislocation. Mild tricompartmental degenerative changes are present. There is prominence of the anterior tibial tuberosity. There are no radiodense foreign bodies. RAD/Knee 4 or More Views IMPRESSION: No fracture or dislocation. Mild tricompartmental degenerative changes. Electronically Signed: Fidencio Montes De Oca, at 19:43 EST Tel , Service support ,
[2019-09-08 20:18] VITALS: BP 168/95; PULSE 74; RESP 18; O2SAT 99
== END 2019-09-08 20:34 | disposition home or self-care (01) ==
PROVIDERS: Emergency Provider Emergency Medicine; PCP Internal Medicine
DX: S83.92XA Sprain of unspecified site of left knee, initial encounter (principal); W17.89XA Other fall from one level to another, initial encounter; Y93.89 Activity, other specified; Y92.9 Unspecified place or not applicable; M17.12 Unilateral primary osteoarthritis, left knee; I10 Essential (primary) hypertension; M06.9 Rheumatoid arthritis, unspecified; Z87.891 Personal history of nicotine dependence
CPT/HCPCS: 73564; 99285

== ENCOUNTER → 2019-09-15 14:42 | Outpatient (CLI) | payer BC, SELFPAY ==
[2019-09-08 18:55] VITALS: BMI 38.7
[2019-09-15 16:15] LABS: Anion Gap 6 (5-15); BUN 15 mg/dL (7-18); BUN/Creat Ratio 14.7 RATIO (10-20); Calcium,Total 8.8 mg/dL (8.5-10.1); Chloride 105 mmol/L (98-107); Creatinine, Serum 1.02 mg/dL (0.55-1.02); EST Glomerular Filtration Rate 65 mL/min (>60); Est Glom Filt Rate - Afr Amer 79 mL/min (>60); Glucose 92 mg/dL (74-106); Potassium 3.9 mmol/L (3.5-5.1); Sodium Level 137 mmol/L (136-145)
== END ==
LOC: BIMLAB 14:43
PROVIDERS: PCP Internal Medicine; Visit Provider Internal Medicine
DX: I10 Essential (primary) hypertension (principal)
CPT/HCPCS: 36415; 80048

== ENCOUNTER → 2019-09-30 09:30 | Outpatient (CLI) | payer BC, SELFPAY ==
[2019-09-17 09:55] VITALS: BMI 38.7
--- NOTE | 2019-09-30 09:36 | MRI_ITS ---
STUDY: MRI LEFT KNEE REASON FOR EXAM: Left knee pain status post injury 3 weeks ago. TECHNIQUE: Standardized fat and water weighted pulse sequences were obtained in all 3 orthogonal planes. COMPARISON: Radiographs 09/08/2019. FINDINGS: There is a subtle complex tear of the posterior horn of the medial meniscus (proton density sagittal images 13-16). Normal hyaline cartilage of the medial femorotibial compartment. There are bone contusions of the posterior aspect of the medial and lateral tibial plateau (T2 coronal images 10-13) and anterior aspect of the medial and lateral tibial plateau (T2 coronal images 18-20). There is a partial tear of the medial collateral ligament (T2 coronal images 16, 17). Normal distal semimembranosus, gracilis and semitendinosus tendons. There is a radial tear of the posterior horn of the lateral meniscus (T2 coronal images 10, 11; T2 sagittal images 16-19). Normal hyaline cartilage of the lateral femorotibial compartment. There is a subchondral bone contusion of the lateral femoral condyle (T2 sagittal images 17-19). Normal proximal tibiofibular articulation. There is a mild sprain of the proximal fibular collateral ligament (T2 coronal image 11). Normal popliteus tendon. Normal biceps femoris tendon. There is a complete tear of the mid anterior cruciate ligament (T2 sagittal image 13; T2 coronal images 13, 14). There is a low-grade sprain of the posterior cruciate ligament (T2 sagittal image 12). Normal congruent patellofemoral articulation. There are chondral tears of the lateral patellar facet (T2 axial image 10). Normal medial and lateral patellar retinaculum. Normal quadriceps tendon. There is tendon thickening of the distal patellar tendon, with a corticated osseous fragment of the anterior tibial tubercle, consistent with a sequela of remote Arthur-Schlatter''s disease (proton density sagittal images 28-30). There is mild proximal patellar tendinosis (T2 sagittal images 14, 15). Normal Hoffa''s fat pad. There is a moderate sized joint effusion. There is an intra-articular body at the medial aspect of the patellofemoral articulation (T2 axial image 9) measuring 0.6 cm in transverse dimension. There is a low-grade strain of the popliteus muscle (T2 coronal image 7). There is a very small popliteal cyst (T2 coronal image 7). There is edema in the anterior subcutis adipose space. The otherwise visualized osseous structures are unremarkable. MRI/Lower Ext Joint Only (Routine) IMPRESSION: Anterior cruciate ligament tear. Lateral meniscal tear. Subtle medial meniscal tear. Partial tear of the medial collateral ligament. Mild sprain of the posterior cruciate ligament. Mild sprain of the fibular collateral ligament. Chondral tears of the lateral patellar facet. Bone contusions of the medial and lateral tibial plateau, and lateral femoral condyle. Low-grade strain of the popliteus muscle. Joint effusion. Very small popliteal cyst. Intra-articular body. Remote Tecumseh-Schlatter''s disease. Electronically Signed: Gabo Ramirez MD at 10:56 EDT Tel , Service support ,
== END ==
PROVIDERS: PCP Internal Medicine; Referring Provider Orthopaedic Surgery; Visit Provider Orthopaedic Surgery
DX: S83.242A Other tear of medial meniscus, current injury, left knee, initial encounter (principal); S83.282A Other tear of lateral meniscus, current injury, left knee, initial encounter; S83.412A Sprain of medial collateral ligament of left knee, initial encounter; S83.422A Sprain of lateral collateral ligament of left knee, initial encounter; S83.522A Sprain of posterior cruciate ligament of left knee, initial encounter; X58.XXXA Exposure to other specified factors, initial encounter
CPT/HCPCS: 73721

== ENCOUNTER 2020-01-14 06:04 | Day surgery (SDC) | payer BC, SELFPAY ==
[2019-12-25 15:38] VITALS: BMI 38.7
[2020-01-14] VITALS (15 sets, daily range): BP systolic 131–189; BP diastolic 88–130; PULSE 56–92; RESP 16–22; TEMP 36.5–36.6; O2SAT 94–100; BMI 44.4
--- NOTE | 2020-01-14 06:20 | EKG12_ITS ---
Test Reason : PRE-OP Blood Pressure : / mmHG Vent. Rate : 058 BPM Atrial Rate : 058 BPM P-R Int : 170 ms QRS Dur : 090 ms QT Int : 440 ms P-R-T Axes : 055 026 056 degrees QTc Int : 431 ms Sinus bradycardia with sinus arrhythmia Otherwise normal ECG No previous ECGs available Confirmed by SHAUN MENA, CELESTINE ([id number]), commissioning editor NEYDA GOODWIN ([id number]) on 01/19/2020 1:32:19 PM Referred By: Eve Arboleda Confirmed By:CELESTINE DUNN MD
[2020-01-14 06:33] LABS: Hematocrit 41.7 % (37-47); Hemoglobin 13.4 g/dL (12.0-15.0); Mean Corp Hgb Conc 32.1 g/dL (32-36); Mean Corpuscular Hgb 30.9 pg (27.0-32.0); Mean Corpuscular Volume 96.1 fL (81-99); Mean Platelet Vol. 9.3 fl (6.2-12.0); Platelet Count 334 K/mm3 (150-450); RBC Distribution Width CV 12.5 % (11.6-14.6); RBC Distribution Width SD 44.7 fl (35.1-43.9); Red Blood Count 4.34 M/mm3 (4.2-5.4)
[2020-01-14 07:13] LABS: Anion Gap 5 (5-15); BUN 19 mg/dL (7-18); BUN/Creat Ratio 22.6 RATIO (10-20); Calcium,Total 8.4 mg/dL (8.5-10.1); Chloride 108 mmol/L (98-107); Creatinine, Serum 0.84 mg/dL (0.55-1.02); EST Glomerular Filtration Rate 81 mL/min (>60); Est Glom Filt Rate - Afr Amer 98 mL/min (>60); Glucose 110 mg/dL (74-106); Potassium 4.1 mmol/L (3.5-5.1); Sodium Level 139 mmol/L (136-145)
[2020-01-14 07:14] LABS: Internal QC Validated? YES +Cl - CLEAR BKGD
[2020-01-14 07:19] LABS: Pregnancy, Urine Negative Negative
[2020-01-14] MEDS: Lactated Ringers 1,000 ML 100 ML IV ×2 (07:25→11:55)
[2020-01-14] MEDS: Cefazolin 2 GM in 0.9% Normal Saline 100 ML IV (07:57)
--- NOTE | 2020-01-14 08:16 | HP.PCM_ITS ---
History and Physical I have re-examined the patient. There are no clinical changes since date of exam. Intake Intake Visit Reasons: LEFT KNEE Chief Complaint: Left leg swelling & pain Allergies No Known Allergies Allergy (Verified 09/15/19 14:20) [facility] Social History (Updated 12/30/19 @ 10:[address] Eve Arboleda DO) Smoking Status: Current every day smoker Tobacco: How many years used: 9 alcohol intake: never substance use type: does not use what type of physical activity do you participate in: none HPI LEFT KNEE: Details: Parts of this documentation were recorded by a scribe, this documentation accurately reflects the service provided and the decisions made by me, Dr. Eve Arboleda DO 12/25/19 [id number]. TERRY MOHAN is a 34 year old F here today for F/U on left knee. Patient had a injury in 09/2019 where she had a twisting injury. She states that her knee pain is gone and she has not been wering her knee brace. States that she still would like her knee fixed because she is still having locking and popping. Denies numbness, tingling or other associated symptoms. ROS Musc Reports joint pain, Reports joint swelling, Denies numbness, Denies radiating pain into limb, Reports stiffness, Denies tingling Skin/Breast Denies lesions, Denies rash, Denies skin pain, Denies wounds Neuro No numbness, No tingling Ortho Exam Left Knee Date of injury: 09/08/19 Skin/Wound: No ecchymosis, No erythema, Yes swelling Homans Sign: No 2+: Effusion Knee ROM: Yes ROM-Extension -20 to 0, No ROM-Flexion 0-140 (75) Examination: Yes med jt line tenderness, Yes Lat jt line tenderness, Yes Basilia's Test Stability: NML: Anterior Drawer, NML: Posterior Drawer, NML: Varus 30, 2+: Valgus 30 (1cm gapping without pain ) Patella Grind: No KNEE: TTP over MCL more tender over tibial insertion of MCL not femoral of note there is no pain with isolated valgus stress. negative dial test Assessment & Plan Problems 1. Tears of meniscus and anterior cruciate ligament of left knee, initial encounter S83.207A; S83.512A 2. New tear of anterior cruciate ligament of left knee, subsequent encounter S83.512D 3. Tear of medial meniscus of left knee, current, unspecified tear type, marroquin bsequent encounter S83.242D 4. Tear of lateral meniscus of left knee, current, unspecified tear type, subsequent encounter S83.282D Plan Personally reviewed patients MRI with her and educated her that she has meniscus tearing and a torn ACL. Recommended that this should be repaired d/t meniscal pathology but discussed options for treatment including bracing, injection, PT, etc. . Patient wishes to proceed with left knee arthroscopy with ACL repair with allo graft with medial and lateral repair vs meniscectomy, repair as indicated. Reviewed the pre-operative plans with the patient. Risks and benefits of the procedure were fully explained, including but not limited to infection, neurovascular injury, continued pain, arthritis, stiffness, need for further surgery, re-injury, DVT, PE, general risks of anesthesia, and loss of limb or life. The patient understands all the risks and does wish to proceed with written consent. Denies family hx of blood clots. Patient educated that she should continue to wear her knee brace and refrain from any cutting or pivoting. Follow up 5 day post op or sooner if pain, swelling, numbness or associated symptoms, or concerns develop. All questions answered. Patient in agreement of plan. We discussed the current risk associated COVID-19. While it is understood that there is a community spread of COVID 19 the risk of kamryn COVID-19 while at [facility] is very low, however, the risk cannot be completely mitigated because of the community spread of the disease. We discussed in detail the risk of exposure to and or potential harm posed by the COVID-19 virus with having a surgery/procedure at this time versus the risk of delaying the surgery/procedure. Is not possible to know either the risk of delaying the surgery procedure or chance of getting an infection with perfect accuracy, but a joint decision was made to proceed at this time with a schedule surgery/procedure as indicated on the consent form. Patient was notified that we will need to comply with any screening or testing [facility] wishes to perform or that surgery may be delayed for any positive results. Coding Level of Care Code Off vis,est,level 4 Diagnoses Tears of meniscus and anterior cruciate ligament of left knee, initial encounter S83.207A; S83.512A ??Encounter type: initial encounter New tear of anterior cruciate ligament of left knee, subsequent encounter S83.512D ??Encounter type: subsequent encounter Tear of medial meniscus of left knee, current, unspecified tear type, subsequent encounter S83.242D ??Encounter type: subsequent encounter ??Meniscus of knee: medial ??Meniscus tear of knee type: unspecified type Tear of lateral meniscus of left knee, current, unspecified tear type, subsequent encounter S83.282D ??Encounter type: subsequent encounter ??Meniscus tear of knee type: unspecified type ??Tear current or old: current Procedure Criteria Procedure Type: Elective COVID Risk Discussion: The surgeon/proceduralist and patient have discussed in detail the risk of exposure to and/or potential harm posed by the COVID-19 virus with having a surgery/procedure at this time versus the risk of delaying the surgery/procedure. It is not possible to know either the risk of delaying the surgery or procedure or chance of getting an infection with perfect accuracy, but a joint decision was made between the patient and the surgeon/proceduralist to proceed at this time with the scheduled surgery/procedure as indicated on the consent form.
--- NOTE | 2020-01-14 08:20 | PCM.DC.ORTHO ---
Discharge Diet: No Restrictions - Toe-touch weightbearing operative extremity, brace may be unlocked while seated 0 to 30 degrees, brace locked in extension during ambulation and at night, follow-up on Sunday for dressing change and brace adjustment with Tyrone Wayt, may get incision wet after that time, call with increased pain numbness tingling or other issues arise, ice elevate and ankle pumps Discharge Activity: May Not Drive May shower in (days): 1 Ice area for (Minutes): 20 - Every hour while awake. Weight Bearing Status: Weight bearing as tolerated Keep extremity elevated above heart level: Operative Extremity Call your doctor if your incision/area has: Continuous Slow Oozing, Sudden Increased Bleeding, Increased Pain/ Swelling, Increased Redness, Foul Smelling Discharge Call your doctor if you observe: Fever of 101 or Higher, Coldness, Increased Pain, Numbness or Tingling, Change in Color, Calf discomfort Allergies/Adverse Reactions: Allergies No Known Allergies Allergy (Verified 01/14/20 07:02) Medications to take at Discharge meloxicam 15 mg tablet 15 mg PO DAILY #90 tab 09/15/19 tramadol 50 mg tablet 100 mg PO Q8H PRN #42 tab 09/17/19 Acetaminophen [Tylenol] 325 mg PO PRN PRN 01/07/20 Hydrochlorothiazide [Hctz] 25 mg PO DAILY 01/07/20 Hydrocodone Bitart/Apap 5-325 [[place] 5MG-325MG] 1 - 2 tab PO Q6H PRN PRN 5 Days #40 tab 01/14/20 The following prescriptions were given: Hydrocodone Bitart/Apap 5-325 [[place] 5MG-325MG] 1 - 2 tab PO Q6H PRN PRN 5 Days #40 tab PRN Reason: Pain Transmission Status: Received by [facility] Primary Care Physician: Blu Ferguson MD [Primary Care Provider] - Test Results: Test results from this visit will be discussed in further detail at your follow-up appointment, if applicable. Please Follow Up With: Eve Arboleda, - [phone]
--- NOTE | 2020-01-14 08:21 | OP.PCM_ITS ---
Report of Operation Date of Procedure: 01/14/20 Pre-Operative Diagnosis: left knee ACL tear, lateral meniscus tear, medial meniscus tear, chondromalacia patellofemoral Post-Operative Diagnosis: Same Surgery/Procedure Performed:: Left knee arthroscopy, anterior cruciate ligament reconstruction with graft link allograft, partial medial meniscectomy, lateral meniscus repair, patella chondroplasty help desk engineer: Paco Smith Type of Anesthesia:: General, General/Regional Anesthesiologist: Vineet Suresh Drains: tt-104 min Estimated Blood Loss (mL): min Fluids Replaced: 1800cc lr Description of Procedure: Preop note Patient is a 35-year-old female who sustained a twisting injury to her left knee a few months ago. Patient continued pain instability and locking. MRI confirms complete ACL tear popliteal popliteus strain medial medial and lateral meniscus tears as well as patellofemoral chondromalacia. Patient is unable to walk without her knee giving out and has episodes of locking. Patient had a negative dial test. Because of this because of meniscus tears we discussed options for treatment. Risks benefits and alternatives surgery discussed with patient. Risks including but not limited to blood loss, blood clot, infection, neurovascular, failure procedure, loss of life and loss of limb. Patient is aware like proceed with left knee ACL reconstruction with allograft, medial and/or lateral meniscus versus meniscectomy versus meniscal repair and repair as indicated. We discussed the current risk associated COVID-19. While it is understood that there is a community spread of COVID 19 the risk of kamryn COVID-19 while at [facility] is very low, however, the risk cannot be completely mitigated because of the community spread of the disease. We discussed in detail the risk of exposure to and or potential harm posed by the COVID-19 virus with having a surgery/procedure at this time versus the risk of delaying the surgery/procedure. Is not possible to know either the risk of delaying the surgery procedure or chance of getting an infection with perfect accuracy, but a joint decision was made to proceed at this time with a schedule surgery/procedure as indicated on the consent form. Patient was notified that we will need to comply with any screening or testing [facility] wishes to perform or that surgery may be delayed for any positive results. Julia COVID Operative note Patient seen and examined preoperative holding area. Left knee was marked. Patient brought to the operating room and placed supine on the operating table. Sign, anesthesia, antibiotics were administered. The left leg was prepped and draped in usual sterile technique with a tourniquet around her upper thigh. All bony prominences well-padded and SCDs placed on her contralateral limb. Marked out arm portal placement for anteromedial anterior lateral portal placement. The left leg was then elevated exsanguinated and tourniquet was raised her pressure of 275 torr. Timeout was performed. We created an anterior lateral portal and began our diagnostic arthroscopy. There was significant patellofemoral chondromalacia significant on the inferior pole of the patella. We then moved to the medial joint line. Created anterior medial portal under direct visualization. She had a posterior meniscus tear that was an irreparable white white zone this was removed with a combination of a basket and shaver to a stable rim. When then reinserted a probe to ensure that would be good remnant meniscus remaining which we did have. Her ACL was torn in the notch. We then debrided this ACL back to its femoral insertion as well as leaving a little bit on the tibial side. The moved to the lateral joint line. Please please note we also performed a notchplasty as she had a narrow notch. Please note that that we also prepared the graft on the back table noted that it would be size 9. We then moved to the lateral joint line. The lateral femoral condyle medial femoral condyle medial tibial plateau were intact she had a fissuring of the lateral tibial plateau. She also had truncated to her not truncated meniscus but her meniscus had detached from the posterior posterior horn but had scarred in on the undersurface of her popliteus. We attempted to remove the meniscus but because of the of the way a dose of down posteriorly the anterior to mid body was actually stable because it had scarred into the popliteus if we had removed the entire meniscus and she would be left with no meniscus at all but because of the fact that she had scar at that anterior mid body where it dove in continuity inferiorly we left well enough alone we actually did to perform then used to reverse curved FasT-Fix's to further suture that area of the mid body where it was still attached in order to gain give her some stability of that lateral joint and some cushion to prevent arthritis. She also had split the horn so we did repair that with a reverse curved 360 FasT-Fix device as well. We probed the meniscus it was stable. We then moved back to her ACL graft. Using standard technique we inserted a 9 flip cutter and ring backed about drilled back about 2024 mm. We then placed a suture fiber stick through the femoral tunnel moved to the tibial tunnel incision standard technique we drilled our tibial tunnel the back about 25-30 we then placed we then took Off of the back table brought it through the femoral tunnel flipped the button on the outside did visualize the flip intra-articularly. We then brought the graft into the tunnel about 20 mm we then brought the graft down to the tibial tunnel using the free suture limbs. We cycled the graft about 30 times. We then placed our button over the cortex on the tibial side and tied this over the button. We then brought the graft a little bit more into the femoral tunnel with a little bit of room on the femoral side as well. We had a negative Lockman at the end of the case. The knee please note that throughout the case numerous times we did irrigate the knee with copious muscle sterile saline under move remove any bony debris. We then moved to the patella we performed a patella chondroplasty removed any loose bodies from the inferior pole the patella. The knee was then irrigated with copious muscle sterile saline. The lateral incision for our flip cutter on the femoral side was closed with deep 2- 0 Vicryl and 4-0 nylon the tibial side was closed with deep 2-0 Vicryl and a running 4-0 Monocryl the portals were closed with interrupted nylon stitches. Sterile dressings were applied tourniquet was deflated for total working time of [address] a brace onto left leg will be locked in extension during ambulation and at night she can range of motion 0 to 30 degrees Patient tolerated procedure well no complication transfer recovery room in stable condition. Postoperative note Toe-touch weightbearing left leg Brace locked in extension during ambulation and at night 0-30 in flexion Follow-up on Sunday for brace evaluation and changing with Tyrone weight Discussed ice elevating what the signs to look for blood clots This note was generated with [employer] dictation software. It may contain incorrect words, spelling, and punctuation that were not noted in checking the note before signing.
[2020-01-14] MEDS: Epinephrine (1 mg/ml) 1 MG/ML VIAL (08:33)
[2020-01-14] MEDS: Mupirocin Ointment 22gm Tube 1 APPLIC (08:33)
[2020-01-14] MEDS: Bupiv/Epi 0.25% 30 ML Vial (10:30)
[2020-01-14] MEDS: HYDROcodone Bitartrate/Apap 5/325 Tablet PO (15:13)
== END 2020-01-14 15:47 | disposition home or self-care (01) ==
LOC: SDC 06:06 → AC 06:07
PROVIDERS: Anesthesiology; PCP Internal Medicine; Referring Provider Orthopaedic Surgery; Visit Provider Orthopaedic Surgery
PROC: (CPT 29888; principal; 2020-01-14 07:40)
DX: S83.512A Sprain of anterior cruciate ligament of left knee, initial encounter (principal); S83.242A Other tear of medial meniscus, current injury, left knee, initial encounter; S83.282A Other tear of lateral meniscus, current injury, left knee, initial encounter; X50.1XXA Overexertion from prolonged static or awkward postures, initial encounter; M22.42 Chondromalacia patellae, left knee; Z11.59 Encounter for screening for other viral diseases; I10 Essential (primary) hypertension; F17.200 Nicotine dependence, unspecified, uncomplicated
CPT/HCPCS: 01400; 29880; 29888; 64447; 36415; 80048; 81025; 85027; 87635; 93005; C1713; G2023; J7120; J2405; U0003

== ENCOUNTER → 2020-03-04 14:56 | Outpatient (CLI) | payer BC, SELFPAY ==
[2020-03-04 14:31] VITALS: BMI 44.4
[2020-03-04 15:39] LABS: Hemoglobin A1c 5.7 % (3.8-5.6)
[2020-03-04 17:36] LABS: Cholesterol 290 mg/dL (200); Estradiol 47.2 pg/mL; Follicle Stimulating Hormone 5.6 mIU/mL; Free T3 2.4 pg/mL (2.18-3.98); High Density Lipoprotein 49 mg/dL; Luteinizing Hormone 4.7 mIU/mL; Prolactin 2.3 ng/mL; T4 Total, Thyroxin 8.4 ug/dL (4.8-13.9); Thyroid Stim Hormone (TSH) 0.37 uIU/mL (0.358-3.74); Triglycerides 157 mg/dL; Very Low Density Lipoprotein 31 mg/dL (5-40)
[2020-03-05 13:11] LABS: HIV - WCH Non-Reactive (Nonreactive); Hepatitis B Surface Antigen Non-Reactive (Nonreactive); Hepatitis C Antibody Non-Reactive (Nonreactive); Rubella IgG 47.5 IU/mL
[2020-03-06 16:07] LABS: DHEA Sulfate 85.5 ug/dL (57.3-279.2)
[2020-03-07 13:05] LABS: V-Zoster IgG (Immunity) 1252 index (Immune >165)
[2020-03-08 20:07] LABS: Chlamydia By Nucleic Acid AMP Negative (Negative)
[2020-03-09 04:44] LABS: Gonococcus By Nucleic Acid AMP Negative (Negative)
[2020-03-09 14:46] LABS: HPV APTIMA, High Risk Negative (Negative)
[2020-03-11 06:32] LABS: Rapid Plasmin Reagin (RPR) REACTIVE (NONREACTIVE)
== END ==
PROVIDERS: PCP Internal Medicine; Referring Provider Obstetrics & Gynecology; Visit Provider Obstetrics & Gynecology
DX: N92.6 Irregular menstruation, unspecified (principal); Z12.4 Encounter for screening for malignant neoplasm of cervix; Z11.3 Encounter for screening for infections with a predominantly sexual mode of transmission
CPT/HCPCS: 36415; 80061; 82627; 82670; 83001; 83002; 83036; 84146; 84436; 84443; 84481; 86592; 86703; 86762; 86787; 86803; 87340; 87491; 87591; 87624; 88175; 82626; G0145

== ENCOUNTER → 2020-03-18 11:35 | Outpatient (CLI) | payer BC, SELFPAY ==
[2020-03-04 14:31] VITALS: BMI 44.4
--- NOTE | 2020-03-18 11:36 | US_ITS ---
STUDY: ULTRASOUND OF THE FEMALE PELVIS - COMPLETE REASON FOR EXAM: Female, 35 years old. IRREGULAR MENSES LMP: 03/11/2020 TECHNIQUE: Transabdominal real-time exam with arciniega scale image documentation. Transvaginal ultrasound was required for adequate visualization of the uterus and adnexal areas. TECHNICAL QUALITY: Adequate. COMPARISON: None. FINDINGS: The uterus is anteverted and is in a midline position. The uterus measures 8.9 x 4.9 x 3.7 cm. section lesion in scar noted in the lower uterine segment. Multiple nabothian cysts of the cervix. The endometrium measures 11 mm in thickness, and is hyperechoic. 2.2 x 2.6 x 2.3 cm fibroid of uterus. There is no demonstrated myometrial mass. I.U.D. - The patient does not have an I.U.D. The right ovary is visualized. The right ovary measures 2.9 x 2.3 x 2.4 cm. There is no right ovarian cyst or ovarian mass. There is no visualized right adnexal mass or complex lesion. There is normal arterial and normal venous vascularity. The left ovary is visualized. The left ovary measures 2.9 x 2.4 x 2.2 cm. There is no left ovarian cyst or ovarian mass. There is no visualized left adnexal mass or complex lesion. There is normal arterial and normal venous vascularity. There is no fluid in the cul-de-sac. Nondistended unremarkable urinary bladder containing 176 mL of urine. Polycystic ovary disease: No. US/Transvaginal Non- IMPRESSION: 2.2 x 2.6 x 2.3 cm fibroid of the uterus. section scar noted in the lower uterine segment. Multiple nabothian cysts of the cervix. Normal ovaries bilaterally with normal DOPPLER flow. No additional adnexal masses or free fluid. Electronically Signed: Pearl Brothers MD at 0:02 EDT , Service support ,
--- NOTE | 2020-03-18 11:36 | US_ITS ---
STUDY: ULTRASOUND OF THE FEMALE PELVIS - COMPLETE REASON FOR EXAM: Female, 35 years old. IRREGULAR MENSES LMP: 03/11/2020 TECHNIQUE: Transabdominal real-time exam with aricniega scale image documentation. Transvaginal ultrasound was required for adequate visualization of the uterus and adnexal areas. TECHNICAL QUALITY: Adequate. COMPARISON: None. FINDINGS: The uterus is anteverted and is in a midline position. The uterus measures 8.9 x 4.9 x 3.7 cm. section lesion in scar noted in the lower uterine segment. Multiple nabothian cysts of the cervix. The endometrium measures 11 mm in thickness, and is hyperechoic. 2.2 x 2.6 x 2.3 cm fibroid of uterus. There is no demonstrated myometrial mass. I.U.D. - The patient does not have an I.U.D. The right ovary is visualized. The right ovary measures 2.9 x 2.3 x 2.4 cm. There is no right ovarian cyst or ovarian mass. There is no visualized right adnexal mass or complex lesion. There is normal arterial and normal venous vascularity. The left ovary is visualized. The left ovary measures 2.9 x 2.4 x 2.2 cm. There is no left ovarian cyst or ovarian mass. There is no visualized left adnexal mass or complex lesion. There is normal arterial and normal venous vascularity. There is no fluid in the cul-de-sac. Nondistended unremarkable urinary bladder containing 176 mL of urine. Polycystic ovary disease: No. US/Pelvic (Non ) IMPRESSION: 2.2 x 2.6 x 2.3 cm fibroid of the uterus. section scar noted in the lower uterine segment. Multiple nabothian cysts of the cervix. Normal ovaries bilaterally with normal DOPPLER flow. No additional adnexal masses or free fluid. Electronically Signed: Pearl Brothers MD at 0:02 EDT , Service support ,
== END ==
LOC: US 11:36
PROVIDERS: PCP Internal Medicine; Referring Provider Obstetrics & Gynecology; Visit Provider Obstetrics & Gynecology
DX: N92.6 Irregular menstruation, unspecified (principal); Z11.3 Encounter for screening for infections with a predominantly sexual mode of transmission
CPT/HCPCS: 76830; 76856

== ENCOUNTER 2020-11-15 12:15 | Emergency (ER) | payer BC, SELFPAY ==
[2020-11-12 15:10] VITALS: BMI 44.2
[2020-11-15 12:16] VITALS: BP 158/112; PULSE 79; RESP 16; TEMP 36.6; O2SAT 100; BMI 42.7
--- NOTE | 2020-11-15 12:27 | VDLE_ITS ---
Reason For Study: Pain RIGHT GSV is normal. CFV is compressible, spontaneous, phasic, competent and demonstrates normal augmentation. FV is compressible, spontaneous, phasic, competent and demonstrates normal augmentation. POP V is compressible, spontaneous, phasic, competent and demonstrates normal augmentation. T/P Trunk is compressible. PTV is compressible. RT PerV is compressible. Procedure This is a venous duplex using B-mode, color flow and spectral Doppler. Exam performed portable in ED. A preliminary report was called and/or faxed to Dr. Calvin. VL/Venous Duplex US, Unilateral Interpretation Summary There is no evidence of right lower extremity deep vein thrombosis. Right great saphenous vein appears patent and compressible segmentally. Ordering Physician: King Calvin Referring Physician: Blu Ferguson Performed By: Pavithra Delgadillo, JESSE, RVT
--- NOTE | 2020-11-15 12:28 | ED.VIS.LOWEX ---
HPI History of Present Illness Chief Complaint: Lower Extremity Injury Informant: patient Narrative Narrative: Patient presents with right calf pain. She has had this for about 3 days. She went to her doctor yesterday for sciatica-like symptoms. She was given meloxicam and prednisone which is help with her back pain. She states that pain is better but she is still having pain in the calf region. Is worse with walking. She has no history of DVT. She denies any swelling or redness to the leg. She is concerned about a blood clot because of the continued pain despite her back pain being better. PFSH PFSH Medical History Arthritis Breast lump Hyperlipemia Hypertension Pancreatitis Rheumatoid arthritis Home Medications acetaminophen 325 mg PO PRN PRN 01/07/20 [History Last Taken Unknown] medroxyprogesterone 10 mg tablet 10 mg PO DAILY 05/20/20 [History Last Taken Unknown] hydrochlorothiazide 25 mg tablet 25 mg PO DAILY #90 tab 06/24/20 [Rx Last Taken Unknown] cyclobenzaprine 5 mg tablet 5 - 10 mg PO QHS PRN #30 tab 11/12/20 [Rx Last Taken Unknown] meloxicam 15 mg tablet 7.5 - 15 mg PO DAILY PRN #14 tab 11/12/20 [Rx Last Taken Unknown] methylprednisolone 4 mg tablets in a dose pack See Rx Instructions PO PER PKG DIR #21 tab 11/12/20 [Rx Last Taken Unknown] Allergy/AdvReac Type Severity Reaction Status Date / Time No Known Allergies Allergy Verified 11/15/20 12:18 Family History Grandmother Cancer Other Arthritis Diabetes Hyperlipemia Hypertension Thyroid disorder Surgical History H/O left knee surgery History of section History of cholecystectomy Social History housing: house Smoking Status: Current every day smoker Tobacco: How many years used: 9 alcohol intake: current substance use type: does not use what type of physical activity do you participate in: none ROS ROS ED Constitutional Constitutional ED: Denies chills or fever(s) Eyes Eyes: Denies blurry vision, change in vision or diplopia ENT ENT ED: Denies ear pain, rhinorrhea or sore throat Cardiovascular Cardiovascular: Denies chest pain or palpitations Respiratory/Chest Respiratory/Chest: Denies cough, dyspnea or sputum Gastrointestinal Gastrointestinal: Denies abdominal pain, diarrhea, nausea or vomiting Genitourinary Genitourinary ED: Denies dysuria, hematuria or urinary frequency Musculoskeletal Musculoskeletal: Reports other Details: Right calf pain Integumentary Denies change in pigmentation or rash Neurologic Neurologic: Denies headache(s), numbness or weakness Psychiatric Psychiatric: Denies anxiety or depression Endocrine Endocrinology: Denies polydipsia or polyuria EXAM Physical Exam Const Vital Signs: 11/15/20 12:16 Temperature 97.9 F Temperature Source Temporal Pulse Rate 79 Respiratory Rate 16 Blood Pressure 158/112 H Blood Pressure Mean 127 Pulse Ox 100 Oxygen Delivery Method Room Air Positive well nourished and well developed General Appearance ED: well developed HEENT normocephalic and atraumatic Eyes PERRL Neck full ROM Back/Spine Lumbar Spine / Lower Back: Negative for lumbar spinal tenderness Extremity normal to inspection Extremity Narrative: Tenderness to palpation on the lower lateral portion of the calf. There is no leg swelling. She has a 2+ DP pulse. No palpable cords are felt. Neuro oriented x3 and moves all extremities Sensorium / Orientation: alert Motor Exam: strength 5/5 throughout Psych mental status grossly normal Skin Lesions: no lesions Rashes: no rashes MDM MDM MDM Narrative Medical decision making narrative: Duplex ultrasound is negative for DVT. Her pain is still likely due to the sciatica. I recommended she still continue to take the medications and she will follow-up with her PCP Discharge Plan Triage Chief Complaint: Lower Extremity Injury ED Provider: King Calvin Dx/Rx/DC Orders Clinical Impression: Pain of right calf Instructions: Lower Body Exercises: Calf Stretch Prescriptions: No Action medroxyprogesterone [Provera] 10 mg tablet 10 mg PO DAILY RF: 0 methylprednisolone [Medrol (Ángel)] 4 mg tablets,dose pack See Rx Instructions PO PER PKG DIR Qty: 21 RF: 0 meloxicam 15 mg tablet 7.5 - 15 mg PO DAILY PRN (Reason: pain) Qty: 14 RF: 1 cyclobenzaprine 5 mg tablet 5 - 10 mg PO QHS PRN (Reason: muscle spasm) Qty: 30 RF: 0 acetaminophen 325 MG tablet 325 mg PO PRN PRN (Reason: Pain Or Fever) RF: 0 hydrochlorothiazide 25 mg tablet 25 mg PO DAILY Qty: 90 RF: 1 Primary Care Provider: Blu Ferguson Referrals: Blu Ferguson MD [Primary Care Provider] - Disposition Disposition: Home, self care
[2020-11-15 13:19] VITALS: PULSE 66; RESP 17; O2SAT 99
== END 2020-11-15 13:23 | disposition home or self-care (01) ==
LOC: ED 13:12
PROVIDERS: Emergency Provider Emergency Medicine; PCP Internal Medicine
DX: M79.661 Pain in right lower leg (principal); I10 Essential (primary) hypertension; E78.5 Hyperlipidemia, unspecified; M06.9 Rheumatoid arthritis, unspecified; F17.200 Nicotine dependence, unspecified, uncomplicated; Z79.899 Other long term (current) drug therapy
CPT/HCPCS: 93971; 99282

== ENCOUNTER 2020-11-26 05:52 | Emergency (ER) | payer BC, SELFPAY ==
[2020-11-26 05:54] VITALS: BP 127/74; PULSE 73; RESP 22; TEMP 36.7; O2SAT 100; BMI 42.5
--- NOTE | 2020-11-26 06:09 | EDS_ITS ---
HPI History of Present Illness Chief Complaint: Back Narrative Narrative: 35-year-old female patient of Dr. Ferguson. She reports that she has low back pain that began approximately 2 2 weeks ago. It is a sharp, burning pain is 10-10 in severity. Is worsened by sitting, movement, or bending. She was taking meloxicam, prednisone, and a muscle relaxant without relief. States that radiates down the back of her right leg to the level of her calf. She denies any numbness or weakness. No problems with her bowels or bladder. No groin numbness. Patient denies any recent trauma. No fall, MVA, or change in activity. Patient denies red flags. [facility] Medical History Arthritis Breast lump Hyperlipemia Hypertension Pancreatitis Rheumatoid arthritis Home Medications acetaminophen 325 mg PO PRN PRN 01/07/20 [History Last Taken Unknown] medroxyprogesterone 10 mg tablet 10 mg PO DAILY 05/20/20 [History Last Taken Unknown] hydrochlorothiazide 25 mg tablet 25 mg PO DAILY #90 tab 06/24/20 [Rx Last Taken Unknown] meloxicam 15 mg tablet 7.5 - 15 mg PO DAILY PRN #14 tab 11/12/20 [Rx Last Taken Unknown] naproxen 500 mg PO BID #14 tab 11/26/20 [Rx Last Taken Unknown] oxycodone-acetaminophen [Percocet] 1 tab PO Q6H PRN 3 Days #10 tab 11/26/20 [Rx Last Taken Unknown] Allergy/AdvReac Type Severity Reaction Status Date / Time No Known Allergies Allergy Verified 11/26/20 05:53 Family History Grandmother Cancer Other Arthritis Diabetes Hyperlipemia Hypertension Thyroid disorder Surgical History H/O left knee surgery History of section History of cholecystectomy Social History housing: house Smoking Status: Current every day smoker Tobacco: How many years used: 9 alcohol intake: current substance use type: does not use what type of physical activity do you participate in: none ROS ROS ED Constitutional Constitutional ED: Denies chills, fever(s) or sweats Eyes Eyes: Denies change in vision ENT ENT ED: Denies sore throat Cardiovascular Cardiovascular: Denies chest pain Respiratory/Chest Respiratory/Chest: Denies cough, dyspnea or dyspnea on exertion Gastrointestinal Gastrointestinal: Denies abdominal pain, diarrhea, melena, nausea or vomiting Genitourinary Genitourinary ED: Denies dysuria or urinary frequency Musculoskeletal Musculoskeletal: Reports back pain; Denies myalgias Integumentary Denies rash Neurologic Neurologic: Denies headache(s), paresthesias or weakness EXAM Physical Exam Const Vital Signs: 11/26/20 05:54 Temperature 98.1 F Temperature Source Temporal Pulse Rate 73 Respiratory Rate 22 H Blood Pressure 127/74 H Blood Pressure Mean 91 Pulse Ox 100 Oxygen Delivery Method Room Air Positive well nourished and well developed General Appearance ED: well developed HEENT normocephalic and atraumatic Eyes PERRL Neck no lymphadenopathy, supple and no JVD General: Negative for tenderness Chest Wall Chest: Negative for tenderness Resp clear to auscultation bilaterally Effort and Inspection: Negative for respiratory distress Cardio regular rate, regular rhythm and no murmurs GI normal to inspection, nondistended, normoactive bowel sounds, soft to palpation and non-tender GI Narrative: No guarding, rebound, or peritoneal signs Back/Spine Back/Spine Narrative: Diffuse moderate tenderness to palpation over the lumbar spine and the paraspinous musculature in the lumbar region. No point tenderness. Negative straight leg bilaterally. 5/5 DR, PF, EHL bilaterally. Normal sensation to light touch throughout. Extremity: No clubbing, cyanosis, or edema. Extremity General Extremety ED: Negative for edema or tenderness General Extremity: Negative for edema Neuro oriented x3, CN's II-XII intact bilaterally and no sensory deficits noted Sensorium / Orientation: awake and alert Motor Exam: strength 5/5 throughout Psych mental status grossly normal Skin no rashes or lesions noted MDM [facility] Treatment and Re-Evaluation Comments:: Emergency department course: An [facility] report was obtained which shows patient had 1 prescription for opiates in the past year. She is given oxycodone and naproxen here. Treatment plan: Had a prolonged discussion with the patient that without any trauma I do not feel that x-rays would be helpful. She will be discharged with Percocet and naproxen. Instructed to follow-up with her primary care physician in 3 to 5 days if not improving. She does understand that she may require MRI and/or physical therapy. She is also instructed to use warm compresses and a TENS unit. The signs and symptoms of cauda equina syndrome were discussed and she was instructed to return for these. Disposition: To home in improved and stable condition. Discharge Plan Triage Chief Complaint: Back ED Provider: Manpreet Tong Dx/Rx/DC Orders Clinical Impression: Back pain Instructions: ED Back Pain (Acute or Chronic) Prescriptions: New oxycodone-acetaminophen [Percocet] 5-325 mg tablet 1 tab PO Q6H PRN (Reason: pain) 3 Days Qty: 10 RF: 0 naproxen 500 MG tablet 500 mg PO BID Qty: 14 RF: 0 No Action medroxyprogesterone [Provera] 10 mg tablet 10 mg PO DAILY RF: 0 meloxicam 15 mg tablet 7.5 - 15 mg PO DAILY PRN (Reason: pain) Qty: 14 RF: 1 acetaminophen 325 MG tablet 325 mg PO PRN PRN (Reason: Pain Or Fever) RF: 0 hydrochlorothiazide 25 mg tablet 25 mg PO DAILY Qty: 90 RF: 1 Primary Care Provider: Blu Ferguson Referrals: Blu Ferguson MD [Primary Care Provider] -
[2020-11-26] MEDS: Naproxen 250 MG Tablet 500 MG PO (06:10)
[2020-11-26] MEDS: oxyCODONE 5 MG Tablet 10 MG PO (06:10)
[2020-11-26 07:06] VITALS: RESP 16
== END 2020-11-26 07:07 | disposition home or self-care (01) ==
LOC: ED 06:26
PROVIDERS: Emergency Provider Emergency Medicine; PCP Internal Medicine
DX: M54.5 Low back pain (principal); I10 Essential (primary) hypertension; M06.9 Rheumatoid arthritis, unspecified; F17.200 Nicotine dependence, unspecified, uncomplicated; Z79.899 Other long term (current) drug therapy
CPT/HCPCS: 99283

== ENCOUNTER 2021-04-01 03:54 | Emergency (ER) | payer BC, SELFPAY ==
[2021-04-01 03:55] VITALS: BP 152/86; PULSE 62; RESP 16; TEMP 36.9; O2SAT 100; BMI 44.9
--- NOTE | 2021-04-01 04:08 | EDS_ITS ---
HPI History of Present Illness Chief Complaint: Back Informant: patient Onset/Context/Timing Onset: Days (4 days) Quality: Sharp Location: Lumbar, Buttock and Right Leg Current Severity: Moderate Maximum Severity: Severe Worsened by: improves with Movement Associated Symptoms Associated Symptoms: Radiation to Right Leg Narrative Narrative: Patient presents secondary to low back pain rating to the right leg. She is been having trouble with sciatica over the last 6 months or so. She has been following with a chiropractor. She is scheduled to go back on April 09. Patient states 4 days ago she stood up and felt a popping sensation in her low back. Since that time she had increased pain with radiation down her right leg. There is no fall or direct trauma. No fever or chills. No problems with bowel or bladder control. [facility] Medical History Arthritis Breast lump Hyperlipemia Hypertension Pancreatitis Rheumatoid arthritis Home Medications acetaminophen 325 mg PO PRN PRN 01/07/20 [History Last Taken Unknown] hydrochlorothiazide 25 mg tablet 25 mg PO DAILY #90 tab 06/24/20 [Rx Last Taken Unknown] cyclobenzaprine 10 mg PO BID PRN #10 tab 04/01/21 [Rx Last Taken Unknown] naproxen [Naprosyn] 500 mg PO BID PRN #20 tab 04/01/21 [Rx Last Taken Unknown] oxycodone-acetaminophen [Percocet] 1 tab PO Q6H PRN 3 Days #10 tab 04/01/21 [Rx Last Taken Unknown] prednisone See Taper PO DAILY #63 tab 04/01/21 [Rx Last Taken Unknown] Allergy/AdvReac Type Severity Reaction Status Date / Time No Known Allergies Allergy Verified 04/01/21 03:58 Family History Grandmother Cancer Other Arthritis Diabetes Hyperlipemia Hypertension Thyroid disorder Surgical History H/O left knee surgery History of section History of cholecystectomy Social History housing: house Smoking Status: Former smoker quit date: 07/09/09 Tobacco: How many years used: 9 alcohol intake: current substance use type: does not use what type of physical activity do you participate in: walking and weight training frequency: 3-4 times per week ROS ROS ED Constitutional Constitutional ED: Denies chills or fever(s) Eyes Eyes: Denies change in vision ENT ENT ED: Denies sore throat Cardiovascular Cardiovascular: Denies chest pain Respiratory/Chest Respiratory/Chest: Denies cough or dyspnea Gastrointestinal Gastrointestinal: Denies abdominal pain, diarrhea, nausea or vomiting Genitourinary Genitourinary ED: Denies dysuria Musculoskeletal Musculoskeletal: Reports back pain Integumentary Denies rash Neurologic Neurologic: Reports paresthesias RLE; Denies headache(s) or weakness Allergic/Immunologic Allergic/Immunologic ED: Denies urticaria EXAM Physical Exam Const Vital Signs: 04/01/21 03:55 Temperature 98.4 F Temperature Source Temporal Pulse Rate 62 Respiratory Rate 16 Blood Pressure 152/86 H Blood Pressure Mean 108 Pulse Ox 100 Oxygen Delivery Method Room Air Positive well nourished and well developed General Appearance ED: well developed Neck supple Resp normal respiratory effort Cardio regular rate and regular rhythm GI normal to inspection, nondistended, normoactive bowel sounds Back/Spine normal to inspection Back/Spine Narrative: Tenderness patient over the right low lumbar paraspinal muscles and over the right sciatic notch. Extremity normal to inspection Neuro oriented x3 Neuro Narrative: Strong distal pulses. Normal sensation. Patient observed ambulating down the hallway with good strength noted. Sensorium / Orientation: alert Psych mental status grossly normal Skin no rashes or lesions noted MDM MDM MDM Narrative Medical decision making narrative: I did review patient's prior ER visit for similar. She is currently taking naproxen. At this time we will write her prescription naproxen, Flexeril, Percocet, prednisone. She did drive herself to the emergency room so therefore will be given the prescriptions that she can take once she gets home. She will follow-up with her chiropractor as planned. Return instructions are provided. Discharge Plan Triage Chief Complaint: Back ED Provider: Cherri Hendrix Dx/Rx/DC Orders Clinical Impression: Back pain with sciatica Instructions: ED Sciatica Prescriptions: New naproxen [Naprosyn] 500 mg tablet 500 mg PO BID PRN (Reason: pain) Qty: 20 RF: 0 cyclobenzaprine 10 mg tablet 10 mg PO BID PRN (Reason: muscle spasm) Qty: 10 RF: 0 prednisone 10 mg tablet See Taper mg PO DAILY Qty: 63 RF: 0 oxycodone-acetaminophen [Percocet] 5-325 mg tablet 1 tab PO Q6H PRN (Reason: pain) 3 Days Qty: 10 RF: 0 No Action acetaminophen 325 MG tablet 325 mg PO PRN PRN (Reason: Pain Or Fever) RF: 0 hydrochlorothiazide 25 mg tablet 25 mg PO DAILY Qty: 90 RF: 1 Primary Care Provider: Blu Ferguson Referrals: Blu Ferguson MD [Primary Care Provider] - 1-2 Weeks Activity Restrictions/Additional Instructions: Follow-up with your chiropractor as scheduled. Disposition Disposition: Home, Self Care
[2021-04-01 04:59] VITALS: RESP 16
== END 2021-04-01 05:02 | disposition home or self-care (01) ==
PROVIDERS: Emergency Provider Emergency Medicine; PCP Internal Medicine
DX: M54.41 Lumbago with sciatica, right side (principal); I10 Essential (primary) hypertension; E78.5 Hyperlipidemia, unspecified; M06.9 Rheumatoid arthritis, unspecified; Z79.899 Other long term (current) drug therapy; Z87.891 Personal history of nicotine dependence
CPT/HCPCS: 99282

== ENCOUNTER 2021-07-20 13:42 | Outpatient (CLI) | payer BC, SELFPAY | END 2021-07-20 23:59 | disposition short-term general hospital (02) | LOC: LABSPEC 13:43 | PROVIDERS: PCP Internal Medicine; Referring Provider Physician Assistant; Visit Provider Physician Assistant | DX: Z11.52 Encounter for screening for COVID-19 (principal) | CPT/HCPCS: 87635; U0003; U0005 ==

== ENCOUNTER → 2021-11-15 | Outpatient (CLI) | payer BC, SELFPAY ==
[2021-11-15 12:07] LABS: Absolute Lymphocyte Count 2.39 X10^3/uL (0.83-4.51); Basophil# 0.03 X10^3/uL; Basophil% 0.4 % (0-1); Eosinophil# 0.11 X10^3/uL; Eosinophils% 1.4 % (0-5); Hematocrit 41.8 % (37-47); Hemoglobin 13.6 g/dL (12.0-15.0); Lymphocyte # 2.39 X10^3/ul (0.83-4.51); Lymphocyte % 29.6 % (19-41); Mean Corp Hgb Conc 32.5 g/dL (32-36); Mean Corpuscular Hgb 30.9 pg (27.0-32.0); Mean Platelet Vol. 9.6 fl (6.2-12.0); Monocyte# 0.54 X10^3/uL; Monocyte% 6.7 % (0-10); NRBC Flagged by Analyzer 0 % (0-5); Neutrophil # 4.97 X10^3/uL (2.7-7.7); Neutrophil % 61.5 % (47-70); Platelet Count 323 K/mm3 (150-450); RBC Distribution Width SD 42.4 fl (35.1-43.9); White Blood Count 8.1 K/mm3 (4.4-11.0)
[2021-11-15 12:26] LABS: ALB/GLOB Ratio 0.8 RATIO (0.9-2.4); AST(SGOT) 13 U/L (15-37); Alanine Aminotransfer ALT/SGPT 33 U/L (13-56); Albumin, Serum 3.4 g/dL (3.2-5.0); Alkaline Phosphatase 87 U/L (45-117); Anion Gap 6 (5-15); BUN 14 mg/dL (7-18); BUN/Creat Ratio 15.2 RATIO (10-20); Chloride 105 mmol/L (98-107); Cholesterol 230 mg/dL (200); Creatinine, Serum 0.92 mg/dL (0.55-1.02); EST Glomerular Filtration Rate 72 mL/min (>60); Est Glom Filt Rate - Afr Amer 88 mL/min (>60); Globulin 4.4 g/dL (2.2-4.2); Glucose 121 mg/dL (74-106); High Density Lipoprotein 41 mg/dL; Potassium 3.8 mmol/L (3.5-5.1); Protein, Total 7.8 g/dL (6.4-8.2); Sodium Level 138 mmol/L (136-145); Triglycerides 236 mg/dL; Very Low Density Lipoprotein 47 mg/dL (5-40)
[2021-11-15 12:27] LABS: Hemoglobin A1c 5.6 % (3.8-5.6)
== END | disposition home or self-care (01) ==
LOC: BIMLAB 09:40
PROVIDERS: PCP Internal Medicine; Referring Provider Internal Medicine; Visit Provider Internal Medicine
DX: I10 Essential (primary) hypertension (principal); E66.01 Morbid (severe) obesity due to excess calories; Z68.41 Body mass index [BMI] 40.0-44.9, adult
CPT/HCPCS: 36415; 80053; 80061; 83036; 85025

== ENCOUNTER 2022-02-04 07:00 | Emergency (ER) | payer BC, SELFPAY ==
[2022-02-04 07:01] VITALS: BP 182/104; PULSE 65; RESP 16; TEMP 36; O2SAT 100; BMI 44.2
--- NOTE | 2022-02-04 07:12 | ED.VIS.DENTA ---
HPI History of Present Illness Chief Complaint: Dental Informant: patient Onset/Context/Timing Onset: Days Context: Gradual Onset Timing: Continuous Quality: Aching Location: Right upper molars Worsened by: Eating, drinking cold liquids Relieved by: - (Nothing) Associated Symptoms Assocated Symptom - Dental: jaw swelling and cold sensitivity; Negative for fever, face swelling or hot sensitivity Narrative Narrative: Patient presents with right upper dental pain that has been getting worse over the last 4 to 5 days. Patient states she has an appointment with [facility] next week. Patient describes her pain as aching. Patient states pain is over the right upper molar area. Patient states it is worse with eating and drinking cold liquids. Patient denies any heat sensitivity. Patient denies any facial swelling but feels like her gums are swollen. Patient denies any fevers or chills. Patient denies any difficulty breathing or difficulty swallowing. PFSH PFS Medical History ACL (anterior cruciate ligament) tear Arthritis Breast lump Hyperlipemia Hypertension Pancreatitis Rheumatoid arthritis Home Medications acetaminophen 325 mg tablet 325 mg PO PRN PRN Pain Or Fever 01/07/20 [History Last Taken Unknown] hydrochlorothiazide 25 mg tablet 25 mg PO DAILY htn #90 tabs 11/15/21 [Rx Last Taken Unknown] penicillin V potassium 500 mg tablet 500 mg PO 4X/DAY #40 tabs 02/04/22 [Rx Last Taken Unknown] Allergy/AdvReac Type Severity Reaction Status Date / Time No Known Allergies Allergy Verified 02/04/22 07:01 Family History Grandmother Cancer Other Arthritis Diabetes Hyperlipemia Hypertension Thyroid disorder Surgical History H/O left knee surgery History of section History of cholecystectomy Social History housing: house Smoking Status: Former smoker quit date: 07/09/09 Tobacco: How many years used: 9 alcohol intake: current substance use type: does not use what type of physical activity do you participate in: walking and weight training frequency: 3-4 times per week ROS ROS ED Constitutional Constitutional ED: Denies chills or fever(s) Eyes Eyes: Denies blurry vision or change in vision ENT ENT ED: Denies rhinorrhea or sore throat Cardiovascular Cardiovascular: Denies chest pain or palpitations Respiratory/Chest Respiratory/Chest: Denies cough or dyspnea Gastrointestinal Gastrointestinal: Denies nausea or vomiting Genitourinary Genitourinary ED: Denies dysuria or hematuria Musculoskeletal Musculoskeletal: Denies back pain or neck pain Integumentary Denies abscess or rash Neurologic Neurologic: Denies headache(s) or weakness Allergic/Immunologic Allergic/Immunologic ED: Denies mouth swelling or urticaria EXAM Physical Exam Const Vital Signs: 02/04/22 07:01 Temperature 96.8 F L Temperature Source Temporal Pulse Rate 65 Respiratory Rate 16 Blood Pressure 182/104 H Blood Pressure Mean 130 Pulse Ox 100 Oxygen Delivery Method Room Air Positive well nourished, well developed and obese General Appearance ED: well developed and NAD Nutritional Appearance: obese HEENT Mouth ED: Yes oral and palatal mucosa normal, Yes lips normal, Yes tongue normal and Yes salivary gland normal Mouth: oral and palatal mucosa normal, lips normal, tongue normal and salivary gland normal Teeth and Gingiva: caries Throat: posterior oropharynx normal Eyes PERRL and EOMs intact bilaterally Neck no lymphadenopathy, supple and no JVD General: normal visual inspection; Negative for anterior neck swelling, tenderness or submandibular swelling Resp normal respiratory effort, no retractions and clear to auscultation bilaterally Cardio regular rate and regular rhythm Neuro oriented x3, CN's II-XII intact bilaterally, moves all extremities, no focal motor deficits and no sensory deficits noted Sensorium / Orientation: alert Motor Exam: strength 5/5 throughout Psych mental status grossly normal MDM MDM MDM Narrative Medical decision making narrative: The patient patient was advised that this is an infected dental carry. Patient was given a dose of Pen-Vee K here. Patient was given a prescription for Pen-Vee K. Patient was instructed to continue Tylenol and ibuprofen as needed for pain. Patient was instructed to follow-up with her dentist next week as scheduled. Patient understood and was agreeable with the plan. All questions were answered. Discharge Plan Triage Chief Complaint: Dental ED Provider: Ankit Rodriguez Dx/Rx/DC Orders Clinical Impression: Infected dental caries Instructions: ED Dental Pain, ED Dental Cavity Prescriptions: New penicillin V potassium 500 mg tablet 500 mg PO 4X/DAY Qty: 40 0RF No Action hydrochlorothiazide 25 mg tablet 25 mg PO DAILY Qty: 90 1RF acetaminophen 325 MG tablet 325 mg PO PRN PRN (Reason: Pain Or Fever) Primary Care Provider: Blu Ferguson Referrals: Blu Ferguson MD [Primary Care Provider] - 5-7 Days Dentist,Your [STAFF PHYSICIAN] - Keep Ignacio appointment Disposition Disposition: Home, Self Care
[2022-02-04] MEDS: Penicillin Vk 250 MG Tablet 500 MG PO (07:25)
== END 2022-02-04 07:29 | disposition home or self-care (01) ==
PROVIDERS: Emergency Provider Emergency Medicine; PCP Internal Medicine; Visit Provider Emergency Medicine
DX: K02.9 Dental caries, unspecified (principal); M06.9 Rheumatoid arthritis, unspecified; Z68.41 Body mass index [BMI] 40.0-44.9, adult; Z87.891 Personal history of nicotine dependence; I10 Essential (primary) hypertension; E66.9 Obesity, unspecified; Z79.899 Other long term (current) drug therapy
CPT/HCPCS: 99283

== ENCOUNTER 2023-04-11 22:39 | Emergency (ER) | payer BC, SELFPAY ==
[2023-04-11 22:40] VITALS: BP 170/110; PULSE 67; RESP 15; TEMP 37; O2SAT 100; BMI 43.0
--- NOTE | 2023-04-11 23:48 | EX.ED.DYSGE1 ---
HPI History of Present Illness Chief Complaint: Other, Pain/Inj Informant: patient Narrative Narrative: Patient complains of right upper dental pain. Patient states her tooth is been bothering her for maybe a few days. But she bit into something hard when she was eating rice today. It increased the pain. She took ibuprofen and is actually doing a little bit better now. She was already planning to see her dentist. She states the pain is in her tooth but it radiates into the upper cheek and right jaw area. She is denying radiation in the neck to me. No fevers or chills. PFSH PFSH Medical History ACL (anterior cruciate ligament) tear Arthritis Breast lump Hyperlipemia Hypertension Pancreatitis Rheumatoid arthritis Home Medications acetaminophen 325 mg tablet 325 mg PO PRN PRN Pain Or Fever 01/07/20 [History Last Taken Unknown] hydrochlorothiazide 25 mg tablet 25 mg PO DAILY htn #90 tabs 05/22/22 [Rx Last Taken Unknown] naproxen 500 mg tablet 500 mg PO BID #14 tabs 04/11/23 [Rx Last Taken Unknown] penicillin V potassium 500 mg tablet 500 mg PO 4X/DAY #40 tabs 04/11/23 [Rx Last Taken Unknown] Allergy/AdvReac Type Severity Reaction Status Date / Time No Known Allergies Allergy Verified 04/11/23 22:46 Family History Grandmother Cancer Other Arthritis Diabetes Hyperlipemia Hypertension Thyroid disorder Surgical History H/O left knee surgery History of section History of cholecystectomy Social History housing: house Smoking Status: Former smoker quit date: 07/09/09 Tobacco: How many years used: 9 alcohol intake: current substance use type: does not use what type of physical activity do you participate in: walking and weight training frequency: 3-4 times per week ROS ROS ED Constitutional Constitutional ED: Denies chills or fever(s) ENT ENT ED: Reports other Details: See history of present illness. ; Denies ear pain or rhinorrhea Cardiovascular Cardiovascular: Denies chest pain Respiratory/Chest Respiratory/Chest: Denies cough or dyspnea Gastrointestinal Gastrointestinal: Denies nausea or vomiting Hematologic/Lymphatic Hematologic/Lymphatic: Denies easy bleeding, easy bruising or lymphadenopathy Allergic/Immunologic Allergic/Immunologic ED: Denies urticaria EXAM Physical Exam Narrative Exam Narrative: Patient awake alert no acute distress sitting in bed. She is talking on the phone. HEENT: No external swelling or redness. There is tenderness to the right upper jaw on the teeth in both the premolar and molars. Minimal gum erythema but no swelling. Lower jaw is not involved. Voice is normal. Handling secretions is normal. No Ludewig's angina. Neck shows no lymphadenopathy swelling or tenderness. Chest is clear bilaterally and saturations are normal at 100% on room air showing no hypoxia. Heart is regular. I do not hear any murmurs. Const Vital Signs: 04/11/23 22:40 04/11/23 23:43 Temperature 98.6 F Temperature Source Temporal Pulse Rate 67 Respiratory Rate 15 Respiratory Effort Normal Respiratory Pattern Normal Blood Pressure 170/110 H Blood Pressure Mean 130 Pulse Ox 100 Oxygen Delivery Method Room Air MDM MDM MDM Narrative Medical decision making narrative: Has dental pain that is been going on for several days to a week. Worse when she bit down. Likely has a small apical abscess. We will get her started on antibiotics. She states penicillin is worked well. She will follow-up with a dentist. Discussed returning with swelling, pain worsening, pain in other areas or any other concerns Discharge Plan Triage Chief Complaint: Other, Pain/Inj ED Provider: Aly Piper Dx/Rx/DC Orders Clinical Impression: Pain, dental, Abscess, dental Instructions: ED Dental Abscess Prescriptions: New penicillin V potassium 500 mg tablet 500 mg PO 4X/DAY Qty: 40 0RF naproxen 500 mg tablet 500 mg PO BID Qty: 14 0RF No Action acetaminophen 325 MG tablet 325 mg PO PRN PRN (Reason: Pain Or Fever) hydrochlorothiazide 25 mg tablet 25 mg PO DAILY Qty: 90 1RF Primary Care Provider: Blu Ferguson Referrals: Blu Ferguson MD [Primary Care Provider] - Activity Restrictions/Additional Instructions: Up with your dentist in the next 7-10 days. Disposition Disposition: Home, Self Care
[2023-04-11] MEDS: Penicillin Vk 250 MG Tablet 500 MG PO (23:59)
== END 2023-04-12 | disposition home or self-care (01) ==
PROVIDERS: Emergency Provider Emergency Medicine; PCP Internal Medicine; Visit Provider Emergency Medicine
DX: K04.7 Periapical abscess without sinus (principal); K08.89 Other specified disorders of teeth and supporting structures; Z87.891 Personal history of nicotine dependence
CPT/HCPCS: 99283

== ENCOUNTER 2023-10-17 20:26 | Emergency (ER) | payer BC, SELFPAY ==
[2023-10-17 20:27] VITALS: BP 181/109; PULSE 70; RESP 16; TEMP 36.3; O2SAT 99; BMI 43.2
--- NOTE | 2023-10-17 22:23 | EDS_ITS ---
HPI History of Present Illness Chief Complaint: General Illness Narrative Narrative: 38-year-old female presenting with bodyaches, chills, nausea, vomiting, diarrhea. Onset was yesterday. She think she is come down with something like a flu bug. Denies chest pain, cough, shortness of breath. She has not had a fever. Patient denies any black or bloody stools or emesis. She has some epigastric burning and slight cramping in the lower abdomen. No urinary or vaginal complaints. Patient works at [employer] so she comes in contact with a lot of people. She has a child at home the child has not been ill. [facility] Medical History ACL (anterior cruciate ligament) tear Arthritis Breast lump Hyperlipemia Hypertension Pancreatitis Rheumatoid arthritis Home Medications acetaminophen 325 mg tablet 325 mg PO PRN PRN Pain Or Fever 01/07/20 [History Last Taken Unknown] hydrochlorothiazide 25 mg tablet 25 mg PO DAILY htn #90 tabs 05/22/22 [Rx Last Taken Unknown] naproxen 500 mg tablet 500 mg PO BID #14 tabs 04/11/23 [Rx Last Taken Unknown] penicillin V potassium 500 mg tablet 500 mg PO 4X/DAY #40 tabs 04/11/23 [Rx Last Taken Unknown] Allergy/AdvReac Type Severity Reaction Status Date / Time No Known Allergies Allergy Verified 10/17/23 20:28 Family History Grandmother Cancer Other Arthritis Diabetes Hyperlipemia Hypertension Thyroid disorder Surgical History H/O left knee surgery History of section History of cholecystectomy Social History housing: house Smoking Status: Former smoker quit date: 07/09/09 Tobacco: How many years used: 9 alcohol intake: current substance use type: does not use what type of physical activity do you participate in: walking and weight training frequency: 3-4 times per week ROS ROS ED Constitutional Constitutional ED: Denies chills, fever(s) or sweats Eyes Eyes: Denies blurry vision or change in vision ENT ENT ED: Denies ear pain or sore throat Cardiovascular Cardiovascular: Denies chest pain, palpitations or racing heartbeat Respiratory/Chest Respiratory/Chest: Denies cough, dyspnea or sputum Gastrointestinal Gastrointestinal: Reports abdominal pain, diarrhea, nausea and vomiting; Denies constipation Genitourinary Genitourinary ED: Denies dysuria, hematuria or urinary frequency Musculoskeletal Musculoskeletal: Reports myalgias; Denies arthralgias or neck pain Integumentary Denies abscess, Abrasions or rash Neurologic Neurologic: Denies headache(s), paresthesias or weakness Psychiatric Psychiatric: Denies anxiety, depression, suicidal ideation or suicidal thoughts Endocrine Endocrinology: Denies polydipsia or polyuria EXAM Physical Exam Const Vital Signs: 10/17/23 20:27 10/17/23 21:05 10/17/23 22:27 Temperature 97.4 F L Temperature Source Temporal Pulse Rate 70 98 Respiratory Rate 16 16 Respiratory Effort Short of Breath Respiratory Pattern Normal Blood Pressure 181/109 H 133/65 H Blood Pressure Mean 133 87 Pulse Ox 99 99 Oxygen Delivery Method Room Air Room Air Positive well nourished General Appearance ED: NAD; Negative for pallor HEENT Reports moist mucous membranes Eyes PERRL and EOMs intact bilaterally Resp normal respiratory effort and clear to auscultation bilaterally Cardio regular rate and regular rhythm GI GI Narrative: Mild epigastric tenderness. No rebound or guarding. Neuro oriented x3 and CN's II-XII intact bilaterally Sensorium / Orientation: alert Psych mental status grossly normal Skin no rashes or lesions noted General Skin Exam: Negative for jaundice or pallor MDM MDM MDM Narrative Medical decision making narrative: Patient presenting with viral symptoms. Differential includes COVID, influenza, RSV. Patient does not want to be tested. Patient has IV established prior to my arrival and was getting IV fluids. Will give her Zofran, Bentyl, Toradol. CBC will be obtained to assess white blood cell count, hemoglobin, platelets. BMP to assess renal function electrolytes. CBC showed a white blood cell count 8.7. Hemoglobin 13.0. Platelets are 335. Renal function and electrolytes appear to be within normal limits. I went back to evaluate the patient at 11:20 PM and the patient eloped. I left a message on her voicemail to see if she needed any medications for home and she replied she needed to work tomorrow. Impression: 1. Viral syndrome 2. Nausea/vomiting 3 diarrhea Lab Data Attestation: I reviewed the patient's lab results. Labs: Laboratory Results - last 24 hr 10/17/23 21:08 WBC 8.7 RBC 4.24 Hgb 13.0 Hct 40.3 MCV 95.0 MCH 30.7 MCHC 32.3 RDW Std Deviation 43.0 RDW Coeff of Epi 12.3 Plt Count 335 MPV 9.8 Immature Gran % (Auto) 0.200 Neut % (Auto) 56.1 Lymph % (Auto) 30.9 [place] % (Auto) 8.2 Eos % (Auto) 3.9 Baso % (Auto) 0.7 Absolute Neuts (auto) 4.9 Absolute Lymphs (auto) 2.68 Nucleated RBC % 0 Sodium 139 Potassium 3.7 Chloride 109 H Carbon Dioxide 26.0 Anion Gap 4 L BUN 16 Creatinine 0.84 Estim Creat Clear Calc 107.55 Est GFR (MDRD) Af Amer 96 Est GFR (MDRD) Non-Af 80 BUN/Creatinine Ratio 19.0 Glucose 140 H Calcium 8.9 Discharge Plan Triage Chief Complaint: General Illness ED Provider: Maximilian Ramírez Dx/Rx/DC Orders Prescriptions: No Action acetaminophen 325 MG tablet 325 mg PO PRN PRN (Reason: Pain Or Fever) penicillin V potassium 500 mg tablet 500 mg PO 4X/DAY Qty: 40 0RF naproxen 500 mg tablet 500 mg PO BID Qty: 14 0RF hydrochlorothiazide 25 mg tablet 25 mg PO DAILY Qty: 90 1RF Primary Care Provider: Blu Ferguson Referrals: Blu Ferguson MD [Primary Care Provider] -
[2023-10-17 22:27] VITALS: BP 133/65; PULSE 98; RESP 16; O2SAT 99
[2023-10-17] MEDS: Ketorolac 15 MG/ML Vial IV (22:29)
[2023-10-17] MEDS: Dicyclomine 10 MG Capsule 20 MG PO (22:29)
[2023-10-17] MEDS: Ondansetron 4 MG/2 ML Vial IV (22:30)
[2023-10-17 22:41] LABS: Absolute Lymphocyte Count 2.68 X10^3/uL (0.83-4.51); Absolute Neutrophil Count 4.9 X10^3/uL (2.0-7.7); Basophil# 0.06 X10^3/uL; Basophil% 0.7 % (0-1); Eosinophil# 0.34 X10^3/uL; Eosinophils% 3.9 % (0-5); Hematocrit 40.3 % (37-47); Lymphocyte # 2.68 X10^3/ul (0.83-4.51); Lymphocyte % 30.9 % (19-41); Mean Corp Hgb Conc 32.3 g/dL (32-36); Mean Corpuscular Hgb 30.7 pg (27.0-32.0); Mean Platelet Vol. 9.8 fl (6.2-12.0); Monocyte# 0.71 X10^3/uL; Monocyte% 8.2 % (0-10); NRBC Flagged by Analyzer 0 % (0-5); Neutrophil # 4.87 X10^3/uL (2.7-7.7); Neutrophil % 56.1 % (47-70); Platelet Count 335 K/mm3 (150-450); RBC Distribution Width CV 12.3 % (11.6-14.6); Red Blood Count 4.24 M/mm3 (4.2-5.4); White Blood Count 8.7 K/mm3 (4.4-11.0)
[2023-10-17 22:55] LABS: Anion Gap 4 (5-15); BUN 16 mg/dL (7-18); Calcium,Total 8.9 mg/dL (8.5-10.1); Chloride 109 mmol/L (98-107); Creatinine, Serum 0.84 mg/dL (0.55-1.02); EST Glomerular Filtration Rate 80 mL/min (>60); Est Glom Filt Rate - Afr Amer 96 mL/min (>60); Estimated Creatinine Clearance 107.55 ml/min; Glucose 140 mg/dL (74-106); Potassium 3.7 mmol/L (3.5-5.1); Sodium Level 139 mmol/L (136-145)
--- NOTE | 2023-10-17 23:23 | ED.RN ---
2323: Patient found walking out double doors in ER main entrance. When I attempted to confront the patient and redirect back to room she ignored me and continued to walk. I went back to the patients room and angiocath was found intact and lying on counter. Patient eloped and removed her own Angiocath. Doctor Ramírez notified and ER registration at this time.
== END 2023-10-17 23:23 | disposition left against medical advice (07) ==
PROVIDERS: Emergency Provider Student in an Organized Health Care Education/Training Program; PCP Internal Medicine; Visit Provider Student in an Organized Health Care Education/Training Program
DX: B34.9 Viral infection, unspecified (principal); I10 Essential (primary) hypertension; Z79.899 Other long term (current) drug therapy; Z87.891 Personal history of nicotine dependence
CPT/HCPCS: 80048; 85025; 96374; 96375; 99284; J7030; A4216; J2405

== ENCOUNTER 2024-04-30 00:34 | Emergency (ER) | payer BC, SELFPAY ==
[2024-04-30 00:35] VITALS: BP 167/103; PULSE 79; RESP 18; TEMP 36.9; O2SAT 98; BMI 42.3
[2024-04-30 00:38] VITALS: BP 167/103; PULSE 76; RESP 19; TEMP 37.2; O2SAT 99
--- NOTE | 2024-04-30 00:59 | ED.RN ---
1254: PT. FOUND WALKING OUT OF THE DEPARTMENT AFTER USING THE BATHROOM. THIS NURSE STOPPED THE PT. ASKING IF SHE NEEDED ASSISTANCE, PT. RESPONDED W/ NO I AM GOING TO [facility] .
--- OUTSIDE RECORDS SUMMARY | 2024-04-30 01:08 | XMS RPT_ITS | CCD ---
Author Organization [facility] Inform ion Partnership [facility] Care Team Providers Care Merchandise Executive Name Role Phone PHYSICIAN, NONE Primary Care Physician Unavailab MADYSON Bishop DO Attending Unavailable BRENNAN MENA, EMMANUEL Faulkner Attending Unavailable PHYSICIAN, NONE Primary Care Unavailable COREY MARTINEZ DO Attending Unavailab niko Longo Primary Care Provider Unavailanahy e Medications Current Medications Medication Drug Class(es) Dates Sig (Normalized) Sig (Original) acetaminophen 325 mg / HYDROcodone bitartrate 5 mg oral tablet (1 source) Opioid Agonist Start: 09-15-19 End: 09-18-19 take 1 tablet by mouth every six hours as needed for pain [place] 325- 5 mg oral tablet Dose = 1 tab(s), Oral, q6h, PRN for pain, X 3 day(s), # 9 tab(s), 0 Refill(s), Dental caries Start Date: 09/15/23 Stop Date: 09/18/23 Status: Ordered dicyclomine hydrochloride 10 mg oral capsule (1 source) Anticholinergic Start: 10-17-19 dicyclomine (BENTYL) 10 mg capsule Take by mouth. 10/17/2023 Active hydroCHLOROthiazide 25 mg oral tablet (1 source) Thiazide Diuretic take 1 tablet by mouth once daily hydroCHLOROthiazide (HYDRODIURIL, ESIDRIX) 25 mg tablet Take 25 mg by mouth once daily. Active multivit,calc,mins/iro n/folic (ONE-A-DAY WOMENS FORMULA ORAL) (1 source) multivit,calc,mi ns/iro n/folic (ONE-A-DAY WOMENS FORMULA ORAL) Take by mouth. Active nitrofurantoin, macrocrystals 25 mg / nitrofurantoin, monohydrate 75 mg oral capsule (1 source) Nitrofuran Antibacterial Start: 06-25-20 End: 07-02-20 Macrobid 100 mg oral capsule Dose : 100 mg = 1 cap(s), PO, BID, X 7 day(s), # 14 cap(s), 0 Refill(s), 07/02/23 11:08:00 AM EST Start Date: 06/25/23 Stop Date: 07/02/23 Status: Ordered ondansetron 8 mg disintegrating oral tablet (1 source) Serotonin-3 Receptor Antagonist Start: 04-24-20 take 1 tablet by mouth every eight hours as needed ondansetron orally disintegrating (ZOFRAN ODT) 8 mg disintegrating tablet Take 1 tablet by mouth every 8 hours as needed for nausea/vomiting. 12 tablet 04/24/2024 Active penicillin v potassium 500 mg oral tablet (1 source) Start: 09-15-19 End: 09-25-19 penicillin V potassium 500 mg oral tablet Dose : 500 mg = 1 tab(s), Oral, QID, X 10 day(s), # 40 tab(s), 0 Refill(s), 09/25/23 8:29:00 PM EDT Start Date: 09/15/23 Stop Date: 09/25/23 Status: Ordered phenazopyridine hydrochloride 200 mg oral tablet (1 source) Start: 06-25-20 End: 06-26-20 Pyridium 200 mg oral tablet Dose : 200 mg = 1 tab(s), PO, TID, # 9 tab(s), 0 Refill(s), 06/26/23 11:09:00 AM EST Start Date: 06/25/23 Stop Date: 06/26/23 Status: Ordered Problems Active Problems Problem Classification Problem Date Documented Da te Episodic/Chronic Disorders of lipid metabolism (1 source) Mixed hyperlipidemia; Translations: [Mixed hyperlipidemia] Onset: 04-09-2015 04-09-2015 Chronic Disorders of teeth and jaw (1 source) Dental caries; Translations: [Dental caries, unspecified] Onset: 09-15-2023 Episodic Genitourinary symptoms and ill-defined conditions (1 source) Increased frequency of urination; Translations: [Frequency of micturition] Onset: 06-25-2023 Episodic Hypertension complicating ; childbirth and the puerperium (1 source) -induced hypertension; Translations: [Gestational [-induced] hypertension without significant proteinuria, unspecified trimester] 06-23-2011 Episodic Menstrual disorders (3 sources) Secondary amenorrhea; Translations: [Secondary amenorrhea] Onset: 01-19-2011 04-09-2015 Chronic Nausea and vomiting (1 source) Nausea and vomiting; Translations: [Nausea with vomiting, unspecified] 04-24-2024 Episodic Other nutritional; endocrine; and metabolic disorders (1 source) Obesity; Translations: [Obesity, unspecified] 04-09-2015 Chronic Other nutritional; endocrine; and metabolic disorders (1 source) Body mass index 40+ - severely obese; Translations: [Morbid (severe) obesity due to excess calories] Onset: 04-28-2019 04-28-2019 Chronic Pancreatic disorders (not diabetes) (1 source) Pancreatitis; Translations: [Acute pancreatitis without necrosis or infection, unspecified] 07-04-2021 Episodic Viral infection (1 source) Viral disease; Translations: [Viral infection, unspecified] 04-24-2024 Episodic Past or Other Problems Problem Classification Problem Date Documented Da te Episodic/Chronic Biliary tract disease (1 source) Polyp of gallbladder; Translations: [Cholesterolosis of gallbladder] Onset: 05-11-2012 07-04-2021 Episodic Other connective tissue disease (1 source) Pain in right lower limb; Translations: [Pain in right leg] Onset: 08-05-2015 08-05-2015 Episodic Other screening for suspected conditions (not mental disorders or infectious disease) (1 source) Cancer cervix screening status; Translations: [Encounter for screening for malignant neoplasm of cervix] Onset: 01-19-2011 04-09-2015 Episodic Results Test Name Value Interpretation Reference Range Facility [facility] 04-24-2024 CNOV Office Visit (UCWSTR) ---- ISRAEL STRICKLAND ([id number]) 1985 F Date Time Provider Department 04/24/24 7:15 PM KOFI TENA [facility] During your visit today, we recorded the following information about you: Temperature Pulse Respiration Blood pressure 97.1 degrees 72/minute 20/minute 180/92 Weight 108 kg Kofi Tena APRN.CNP 04/24/2024 7:37 PM Signed This note was created using NoteWriter. Subjective Israel Strickland is a 39 year old female. 39 year old female with PMH HTN, hyperlipidemia, RA presents for complaints of illness. Acute onset 4 days ago + cough +chest congestion +nausea +emesis with eating +diarrhea +body aches +fatigue Used Tylenol and Nyquil Works at [facility] States that she is experiencing the most discomfort with her complaints of nausea and emesis Endorses that she just ate a chopped ham sandwich prior to arrival. Denies CP Denies SOB or dyspnea Denies abdominal pain The history is provided by the patient. No site interpreter was used. Flu Like Symptoms This is a new problem. The current episode started in the past 7 days. The problem occurs constantly. The problem has been gradually worsening. Associated symptoms include chills, congestion, coughing, fatigue, myalgias, nausea, a sore throat and vomiting. Pertinent negatives include no abdominal pain, anorexia, arthralgias, change in bowel habit, diaphoresis, fever, headaches or rash. Nothing aggravates the symptoms. Treatments tried: Tylenol and Nyquil. The treatment provided no relief. PAST MEDICAL HISTORY Diagnosis Date Abdominal pain, right upper quadrant Gallbladder polyp 05/11/2012 Hyperlipidemia Nausea alone Obesity Pancreatitis PIH ( induced hypertension) PAST SURGICAL HISTORY Procedure Laterality Date DELIVERY ONLY ESOPHAGOGASTRODUODE NOSCOPY TRANSORAL DIAGNOSTIC 06/17/12 EGD LAPS SURG CHOLECYSTECTOMY W/CHOLANGIOGRAPHY 08-06-12 ALLERGIES Patient has no known allergies. MEDICATIONS multivit,calc,mins/ iron/folic (ONE-A-DAY WOMENS FORMULA ORAL) Take by mouth. dicyclomine (BENTYL) 10 mg capsule Take by mouth. (Patient not taking: Reported on 04/24/2024) ondansetron orally disintegrating (ZOFRAN ODT) 8 mg disintegrating tablet Take 1 tablet by mouth every 8 hours as needed for nausea/vomiting. hydroCHLOROthiazide (HYDRODIURIL, ESIDRIX) 25 mg tablet Take 25 mg by mouth once daily. (Patient not taking: Reported on 04/24/2024) FAMILY HISTORY Problem Relation Age of Onset Alcohol/Drug Mother Breast Cancer Maternal Aunt Diabetes Other MGGM Stroke Maternal Grandmother Hypertension Maternal Grandmother Diabetes Paternal Grandmother Cancer Paternal Grandfather LUNG CANCER Diabetes Father Hypertension Father Hypertension Mother Social History Tobacco Use Smoking status: Every Day Current packs/day: 0.20 Average packs/day: 0.2 packs/day for 10.0 years (2.0 ttl pk-yrs) Types: Cigarettes Smokeless tobacco: Former Quit date: 01/04/2011 Tobacco comments: started smoking at 16 years old Substance Use Topics Alcohol use: No Drug use: Yes Comment: marijuana Review of Systems Constitutional: Positive for chills and fatigue. Negative for diaphoresis and fever. HENT: Positive for congestion and sore throat. Eyes: Negative for pain, discharge, redness and itching. Respiratory: Positive for cough. Gastrointestinal: Positive for nausea and vomiting. Negative for abdominal pain, anorexia and change in bowel habit. Musculoskeletal: Positive for myalgias. Negative for arthralgias. Skin: Negative for rash. Allergic/Immunologi c: Negative for environmental allergies, food allergies and immunocompromised state. Neurological: Negative for headaches. Hematological: Positive for adenopathy. Objective BP 180/92 Pulse 72 Temp 36.2 ?C (97.1 ?F) Resp 20 Wt 108 kg (238 lb 1.6 oz) LMP 05/19/2021 SpO2 100% BMI 40.87 kg/m? Physical Exam Vitals and nursing note reviewed. Constitutional: General: She is not in acute distress. Appearance: Normal appearance. She is normal weight. She is not ill-appearing, toxic-appearing or diaphoretic. HENT: Head: Normocephalic and atraumatic. Right Ear: Ear canal and external ear normal. Left Ear: Ear canal and external ear normal. Nose: Congestion present. No rhinorrhea. Mouth/Throat: Mouth: Mucous membranes are moist. Pharynx: Posterior oropharyngeal erythema present. No oropharyngeal exudate. Eyes: General: Right eye: No discharge. Left eye: No discharge. Extraocular Movements: Extraocular movements intact. Conjunctiva/sclera: Conjunctivae normal. Pupils: Pupils are equal, round, and reactive to light. Cardiovascular: Rate and Rhythm: Normal rate and regular rhythm. Pulses: Normal pulses. Heart sounds: Normal heart sounds. No murmur heard. No friction rub. Pulmon (more content not included)... Normal [facility] COVID AND INFLUENZA A/B AND RSV PCR, ROUTINEon 04-24-2024 SARS-CoV-2 (COVID-19) RNA BARNEY+probe Ql (Unsp spec) SARS-COV-2 (AGENT OF COVID-19) RNA: Not detected INFLUENZA A RNA: Not detected INFLUENZA B RNA: Not detected RESPIRATORY SYNCYTIAL VIRUS (RSV) RNA: Not detected Normal [facility] Comment on above: Performed By: #### C VFLRS #### [facility] CLIA [id number] [address] [place] [address] OF TODD .Urinalysis Microscopic (AO) on 06-25-2023 UA RBC 0-5 Abnormal None Seen [facility] ([place] Comment on above: Performed By: #### U AMICAO, UA, PREGU #### [id number] [place], [place] [address] UA Squam Epithelial 0-5 Abnormal None Seen [facility] ([place]) Comment on above: Performed By: #### U AMICAO, UA, PREGU #### [address] [address] UA WBC None Seen Normal None Seen [facility] ([place] Comment on above: Performed By: #### U AMICAO, UA, PREGU #### [address] [address] LABORATORYOrdered By: Cristine Pichardo on 06-25-2023 Appearance (U) Clear (06/25/23 10:41 AM) Normal Clear AO Auto Urine SS Bilirubin Ql (U) Negative (06/25/23 10:41 AM) Normal Negative AO Auto Urine SS Color (U) Yellow (06/25/23 10:41 AM) Normal AO Auto Urine SS Glucose Test strip (U) [Mass/Vol] Negative Normal Negative AO Auto Urine SS HCG ( test) Ql Negative (06/25/23 10:41 AM) Normal AO Manual Urine SS Hemoglobin Auto test strip (U) [Mass/Vol] Trace *ABN* (06/25/23 10:41 AM) Invalid Interpretation Code Negative AO Auto Urine SS Ketones Ql (U) Negative Normal Negative AO Auto Ur ine SS test (u) int Not detected Invalid Interpretation Code AO Manual Urine SS UA Leuk Est Negative (06/25/23 10:41 AM) Normal Negative AO Auto Urine SS UA Nitrite Negative (06/25/23 10:41 AM) Normal Negative AO Auto Urine SS UA pH 6.5 (06/25/23 10:41 AM) Normal 5.0 - 8.0 AO Auto Urine SS UA Protein Negative Normal Negative AO Auto Urine SS UA RBC 0-5 /HPF Invalid Interpretation Code None Seen AO Auto Urine SS UA Spec Grav 1.015 (06/25/23 10:41 AM) Normal 1.015-1.025 AO Auto Urine SS UA Specimen Type Clean Catch (06/25/23 10:41 AM) Normal AO Auto Urine SS UA Squam Epithelial 0-5 /HPF Invalid Interpretation Code None Seen AO Auto Urine SS UA Urobilinogen 0.2 E.U./dL Normal 0.2-1.0 AO Auto Urine SS WBC LM.HPF (Urine sed) [#/Area] None Seen /HPF Normal None Seen AO Auto Urine SS PREGUon 06-25-2023 HCG ( test) Ql (U) Negative Normal [facility] Comment on above: Performed By: #### U AMICAO, UA, PREGU #### [address] [address] test (u) int Not detected Invalid Interpretation Code [facility] Comment on above: Performed By: #### U AMICAO, UA, PREGU #### [address] [address] UAon 06-25-2023 Color (U) Yellow Normal [facility] ([place] Comment on above: Performed By: #### U AMICAO, UA, PREGU #### [address] [address] Glucose (U) [Mass/Vol] Negative Normal Negative [facility] ([place] Comment on above: Performed By: #### U AMICAO, UA, PREGU #### [address] [address] Ketones Ql (U) Negative Normal Negative [facility] ([place]) Comment on above: Performed By: #### U AMICAO, UA, PREGU #### [address] [address] UA Appear Clear Normal Clear [facility] ([place] Comment on above: Performed By: #### U AMICAO, UA, PREGU #### [place] [address] UA Blood Trace Abnormal Negative [facility] ([place] Comment on above: Performed By: #### U AMICAO, UA, PREGU #### [place] [address] UA Leuk Est Negative Normal Negative [facility] ([place]) Comment on above: Performed By: #### U AMICAO, UA, PREGU #### [place] [address] UA Nitrite Negative Normal Negative [facility] ([place] Comment on above: Performed By: #### U AMICAO, UA, PREGU #### [address] [address] UA pH 6.5 Normal 5.0 - 8.0 [facility] Comment on above: Performed By: #### U AMICAO, UA, PREGU #### [place] [address] UA Protein Negative Normal Negative [facility] ([place] Comment on above: Performed By: #### U AMICAO, UA, PREGU #### [place] [address] [address] UA Spec Grav 1.015 Normal 1.015-1.025 [facility] Comment on above: Performed By: #### U AMICAO, UA, PREGU #### [place] [id number] UA Specimen Type Clean Catch Normal [facility] Comment on above: Performed By: #### U AMICAO, UA, PREGU #### [facility] [address] [place], [place] [address] UA Urobilinogen 0.2 E.U./dL Normal 0.2-1.0 [facility] Comment on above: Performed By: #### U AMICAO, UA, PREGU #### [facility] [address] [place], [place] [address] Urobilinogen (U) [Mass/Vol] Negative Normal Negative [facility] ([place] Comment on above: Performed By: #### U AMICAO, UA, PREGU #### [facility] [address] [place], [place] [address] HISTORY PHYSICALon HISTORY PHYSICAL HNO ID: [id number] Author: Delfino Rodriguez MD Service: Pain Management Author Type: Physician Type: HANDP Filed: 05/26/2021 9:49 AM Note Text: HISTORY AND PHYSICAL EXAMINATION PATIENT NAME: Israel Strickland DATE of SERVICE: 05/26/2021 PAST ANESTHESIA HISTORY: No history of adverse event PAST MEDICAL HISTORY Diagnosis Date - Abdominal pain, right upper quadrant - Gallbladder polyp 05/11/2012 - Hyperlipidemia - Nausea alone - Obesity - Pancreatitis - PIH ( induced hypertension) PAST SURGICAL HISTORY Procedure Laterality Date - DELIVERY ONLY - EGD W/O OR W/BRUSH/WASH 06/17/12 EGD - LAP CHOLECYSTECT/CHOLAN GIOGRAPHY 08-06-12 Prior to Admission medications as of 05/26/21 0930 Medication Sig Last Dose Taking hydroCHLOROthiazide (HYDRODIURIL, ESIDRIX) 25 mg tablet Take 25 mg by mouth once daily. 05/26/2021 at 0630 Yes multivit,calc,mins/ iron/folic (ONE-A-DAY WOMENS FORMULA ORAL) Take by mouth. 05/22/2021 meloxicam (MOBIC) 7.5 mg tablet Take 7.5 mg by mouth once daily. Patient not taking: Reported on 05/09/2021 naproxen sodium 220 mg cap Take 2 capsules by mouth as needed. Patient not taking: Reported on 05/09/2021 ALLERGIES No Known Allergies Objective Subjective HPI: Israel Strickland is here for the pain mangement procedure. The patient presents with persistent pain complaints. Israel Strickland denies any interval changes or new pain complaints or focal neurologic deficits. PAST MEDICAL HISTORY Diagnosis Date - Abdominal pain, right upper quadrant - Gallbladder polyp 05/11/2012 - Hyperlipidemia - Nausea alone - Obesity - Pancreatitis - PIH ( induced hypertension) PAST SURGICAL HISTORY Procedure Laterality Date - DELIVERY ONLY - EGD W/O OR W/BRUSH/WASH 06/17/12 EGD - LAP CHOLECYSTECT/CHOLAN GIOGRAPHY 08-06-12 Social History Tobacco Use - Smoking status: Current Every Day Smoker Packs/day: 0.20 Years: 10.00 Pack years: 2.00 - Smokeless tobacco: Former User Quit date: 01/04/2011 - Tobacco comment: started smoking at 16 years old Substance Use Topics - Alcohol use: No - Drug use: Yes Comment: marijuana FAMILY HISTORY Problem Relation Age of Onset - Alcohol/Drug Mother - Breast Cancer Maternal Aunt - Diabetes Other MGGM - Stroke Maternal Grandmother - Hypertension Maternal Grandmother - Diabetes Paternal Grandmother - Cancer Paternal Grandfather LUNG CANCER - Diabetes Father - Hypertension Father - Hypertension Mother ALLERGIES No Known Allergies Current Facility-Administer ed Medications Medication Dose Route Frequency - NaCl 0.9% iv infusion 30 mL/hr INTRAVENOUS CONTINUOUS PHYSICAL EXAM: The remainder of the physical exam is noncontributory. Performed in conjunction with observation. The patient is alert and oriented x3. The patient is in no acute distress. Neck: Supple. The range of motion is intact. AIRWAY: Airway Visualization of Uvula: Yes Mouth opening greater than 2 fingerbreadths: Yes Neck Full Range of Motion: Yes LUNGS: Lungs clear to auscultation CARDIAC: Regular rhythm,Regular rate Extremities: no reported edema or erythema. Examination indicates no changes Assessment/Plan ASA Class: ASA Class:: Patient with mild systemic disease Active Problems: * No active hospital problems. * Resolved Problems: * No resolved hospital problems. * Medication and Non-Pharmacologic VTE Prophylaxis/Anticoa gulants VTE Prophylaxis: N/A for outpatient interventional pain procedure. Provisional Diagnosis/Treatment Plan: SEDATION GOAL: Moderate Impression: Lumbar disc displacement Lumbar DDD Plan: The informed consent has been obtained. The plan is to proceed with the procedure as planned. SIGNATURE: Delfino Rodriguez MD DATE: May 26, 2021 TIME: 9:47 AM [facility] OPERATIVE NOon 05-26-2021 OPERATIVE NO HNO ID: [id number] Author: Delfino Rodriguez MD Service: Pain Management Author Type: Physician Type: Operative Report Filed: 05/26/2021 10:25 AM Note Text: PATIENT NAME: Israel Strickland SERVICE DATE: 05/26/2021 PROCEDURE NOTE PREOPERATIVE DIAGNOSIS(ES) Lumbar DDD Lumbar spondylosis Lumbar disc displacement Lumbar radiculopathy POSTOPERATIVE DIAGNOSIS(ES): Same PROCEDURE: L5-S1 interlaminar epidural steroid injection under fluoroscopy. (transistional segment) ANESTHESIA: Conscious sedation with Versed 3 mg, fentanyl 50 mcg. IV INDICATIONS: Israel Strickland presents for lumbar epidural steroid injection. Since the last visit, the patient denies any new pain complaints and denies any focal neurological deficits. The plan is to proceed with lumbar intralaminar epidural steroid injection. The risks and benefits discussed in the office were reviewed. The patient expressed understanding the risks and benefits and informed consent was obtained. OPERATIVE PROCEDURE: The patient was brought to the operating room. The patient was placed in the prone position with pressure points protected. Continuous hemodynamic monitoring was initiated including blood pressure, EKG, and pulse oximetry. Supplemental oxygen per nasal canula was started. The intravenous medication was administered incrementally to provide conscious sedation and to allow the patient to remain comfortable and conversant throughout the procedure. The lower back was prepped in sterile fashion. Upon AP projection under fluoroscopy, L5-S1 level was identified. Entry point was marked and anesthetized with 5 ml of 0.5% Lidocaine. This was followed by insertion of an 18-gauge epidural Tuohy needle, which was inserted and advanced using a loss of resistance technique. Once the epidural space was encountered, aspiration was performed which was negative for blood or CSF. This was followed by injection of 0.5 ml of Omnipaque 300, which revealed a spread along the posterior epidural space. There was no evidence of intravascular or intrathecal flow. This was then followed by a total injection of 5 mL of 0.5% Xylocaine with 40 mg of Depomedrol. The patient tolerated the procedure well. The needle was removed intact. Dry dressing was placed over the injection site. The patient was taken to the recovery room in stable condition. EBL: nil Start time: 10:15 AM End time: 10:23 AM I was present during the entire time and personally performed the procedure. SIGNATURE: Delfino Rodriguez MD DATE: May 26, 2021 TIME: 10:24 AM [facility] XR FLUOROSCOPYon 05-26-2021 XR FLUOROSCOPY * * *Final Report* * * DATE OF EXAM: May 26 2021 10:24AM [facility] 5513 - XR FLUOROSCOPY / PROCEDURE REASON: pain * * * * Physician Interpretation * * * * TECHNIQUE: XR FLUOROSCOPY COMPARISON: No prior study for comparison. TECHNIQUE: Limited fluoroscopic imaging of the lower lumbar spine CLINICAL INDICATION: pain Fluoroscopic Radiation Summary: Plane A, Air Kerma: 8.1 mGy Dose Area Product (DAP): 0.0 mGy*cm^2 Fluoro time: 0:11 min:sec IMAGE NUMBER: 3 RESULT: Needle directed at the lower lumbar spine epidural space. IMPRESSION: 1. As above. Student Affairs Dean: JOVITA Transcribe Date/Time: May 26 2021 12:46P Dictated by : EUGENIE BUTLER MD This examination was interpreted and the report reviewed and electronically signed by: EUGENIE BUTLER MD on May 26 2021 12:47PM EST [id number] [facility] XR LUMBAR 3V AP/LAT/L5-S1on 05-09-2021 XR LUMBAR 3V AP/LAT/L5-S1 * * *Final Report* * * DATE OF EXAM: May 09 2021 12:57PM [facility] [id number] - XR LUMBAR 3V AP/LAT/L5-S1 / PROCEDURE REASON: multiple diagnoses * * * * Physician Interpretation * * * * Lumbar spine radiographs HISTORY: 36 years old Clinical information: Right leg pain DDD (degenerative disc disease), lumbar BACK PAIN-RIGHT LEG PAIN TECHNIQUE: Images: XR LUMBAR 3V AP/LAT/L5-S1 Comparison: April 02, 2019. RESULT: Findings: For the purposes of this dictation the iliac crests are at the L4-5 level. Narrowing of the L5-S1 intervertebral disc space. Mild endplate osteophyte formation at the L5 level. No fracture. SI joints are intact. Osteophyte formation involving the left and right acetabulum. Paraspinous soft tissues are unremarkable in appearance. IMPRESSION: Mild spondylosis lumbar spine. Student Affairs Dean[facility] Transcribe Date/Time: May 09 2021 2:00P Dictated by : EUGENIE BUTLER MD This examination was interpreted and the report reviewed and electronically signed by: EUGENIE BUTELR MD on May 09 2021 2:01PM EST [id number] Normal [facility] Vital Signs Date Time Vital Sign Value Performing Clinician Facility 04-24-2024 19:20-0400 Body mass index (BMI) [Ratio] 40.87 kg/m2 Kofi Tena SYSTEMS CONSULTANT.ABALONE PROCESSOR Work Phone: [facility] 04-24-2024 19:20-0400 Body temperature 97.11 [degF] Kofi Tena SYSTEMS CONSULTANT.ABALONE PROCESSOR Work Phone: [facility] 04-24-2024 19:20-0400 Body weight 108 kg Kofi Tena SYSTEMS CONSULTANT.ABALONE PROCESSOR Work Phone: [facility] 04-24-2024 19:20-0400 Diastolic blood pressure 92 mm[Hg] Kofi Tena SYSTEMS CONSULTANT.ABALONE PROCESSOR Work Phone: [facility] 04-24-2024 19:20-0400 Heart rate 72 /min Kofi Tena SYSTEMS CONSULTANT.ABALONE PROCESSOR Work Phone: [facility] 04-24-2024 19:20-0400 Respiratory rate 20 /min Kofi Tena SYSTEMS CONSULTANT.ABALONE PROCESSOR Work Phone: [facility] 04-24-2024 19:20-0400 SaO2% (BldA) [Mass fraction] 100 % Kofi Tena SYSTEMS CONSULTANT.ABALONE PROCESSOR Work Phone: [facility] 04-24-2024 19:20-0400 Systolic blood pressure 180 mm[Hg] Kofi Tena SYSTEMS CONSULTANT.ABALONE PROCESSOR Work Phone: [facility] 09-15-2023 21:12-0500 Diastolic Blood Pressure Non-Invasive 105 mm[Hg] MADYSON JOHNSON DO [facility] 09-15-2023 21:12-0500 Systolic Blood Pressure Non-Invasive 179 mm[Hg] MADYSON JOHNSON DO [facility] 09-15-2023 20:02-0500 Body temperature 97.88 [degF] MADYSON DURESKA DO [facility] 09-15-2023 20:02-0500 Diastolic Blood Pressure Non-Invasive 107 mm[Hg] MADYSON JOSEPHESKA DO [facility] 09-15-2023 20:02-0500 Heart rate 71 /min MADYSON JOESPHESKA DO [facility] 09-15-2023 20:02-0500 Respiratory rate 18 /min MADYSON SZYMANSKIKA DO [facility] 09-15-2023 20:02-0500 Systolic Blood Pressure Non-Invasive 177 mm[Hg] MADYSON SZYMANSKIKA DO [facility] 06-25-2023 10:24-0500 Blood Pressure Location EMMANUEL AMIN MD [facility] 06-25-2023 10:24-0500 Blood Pressure Method EMMANUEL AMIN MD [facility] 06-25-2023 10:24-0500 Body temperature 97.52 [degF] EMMANUEL AMIN MD [facility] 06-25-2023 10:24-0500 Diastolic Blood Pressure Non-Invasive 107 mm[Hg] EMMANUEL AMIN MD [facility] 06-25-2023 10:24-0500 Heart rate 70 /min EMMANUEL AMIN MD [facility] 06-25-2023 10:24-0500 Respiratory rate 18 /min EMMANUEL AMIN MD [facility] 06-25-2023 10:24-0500 Systolic Blood Pressure Non-Invasive 186 mm[Hg] EMMANUEL AMIN MD [facility] Encounters Encounter Date Encounter Type Care Provider Facility Start: 04-24-2024 End: 04-24-2024 ambulatory Facility:[facility] Start: 04-24-2024 End: 04-24-2024 Patient encounter procedure Kofi Guerinbell EARLABALONE PROCESSOR Work Phone: [facility] Comment on above: Viral illness (Prima ry Dx); Nausea and vomiting, unspecified vomiting type Start: 09-15-2023 End: 09-15-2023 Emergency department patient visit MADYSON JOHNSON DO Facility:B Start: 09-15-2023 End: 09-15-2023 Emergency department patient visit MADYSONRAMONA SZYMANSKIHENRY [facility] Start: 06-27-2023 ambulatory COREY MARTINEZ DO F acility:B Start: 06-25-2023 End: 06-25-2023 Emergency department patient visit EMMANUEL AMIN MD Facility:[facility] Start: 06-25-2023 End: 06-25-2023 Emergency department patient visit EMMANUEL AMIN MD [facility] Plan of Treatment Date Care Activity Detail Author Start: 03-09-2024 Covid-19 Vaccine ( season) Covid-19 Vaccine ( season) [facility] Start: 03-09-2024 Influenza vaccination Influenza Vacc[facility] (#[facility] Start: 2024 Screening for malignant neoplasm of breast Mammogram Screening [facility] Start: 04-23-2015 Screening for malignant neoplasm of cervix Cervical Cancer Screening [facility] Start: 12-31-2002 Hepatitis B Vaccine (1 of 3 - 19+ 3-dose series) Hepatitis B Vaccine (1 of 3 - 19+ 3-dose series) [facility] Start: 12-31-2002 Urine microalbumin profile DTaP,Tdap,Td Vaccine (1 - Tdap) [facility] Start: 12-31-2001 Anxiety Screening Anxiety Screening [facility] Start: 12-31-2001 Depression Screening Depression Screening [facility] Start: 12-31-1989 Pneumococcal vaccination Pneumococcal Vaccine (1 of 2 - PCV) [facility] COVID & INFLUENZA A/ B & RSV PCR, ROUTINE COVID & INFLUENZA A/B & RSV PCR, ROUTINE Microbiology Routine Viral illness Nausea and vomiting, unspecified vomiting type 04/24/2024 7:51 PM EDT [facility] Work Phone: Immunizations Immunization Date Immunization Notes Care Provider Fa cili 06-03-2023 influenza, injectabl e, quadrivalent, preservative free Kofi Tena SYSTEMS CONSULTANT.ABALONE PROCESSOR Work Phone: [facility] 06-03-2023 influenza virus vacc ine, unspecified formulation Kofi Tena SYSTEMS CONSULTANT.ABALONE PROCESSOR Work Phone: [facility] 04-10-2012 influenza virus vacc ine, unspecified formulation Kofi Tena SYSTEMS CONSULTANT.ABALONE PROCESSOR Work Phone: [facility] 06-23-2011 influenza virus vacc ine, unspecified formulation Kofi Tena SYSTEMS CONSULTANT.ABALONE PROCESSOR Work Phone: [facility] Payers Date Payer Category Payer Self-pay 2023 Unknown [id number] 2020 Unknown [employer] PPO OOS [id number] 2020-Present [phone] [address] [place] [address] PPO [id number] 2020 Unknown [id number] 1984 Unknown [id number] 1984 Unknown [id number] 1984 Unknown [id number] Social History Date Type Detail Facility Tobacco smoking status [facility] Sex Assigned At Female [facility] Start: 04-24-2024 [facility] History of tobacco use Cigarette Smoker [facility] Start: 06-16-2020 End: 04-24-2024 Cigarettes smoked current (pack per day) - Reported 0.2 [facility] Start: 04-24-2024 Tobacco use and exposure Former smokeless tobacco user [facility] End: 01-04-2011 History of tobacco use User of smokeless tobacco [facility] Start: 04-24-2024 Alcoholic beverage intake Current non-drinker of alcohol (finding) [facility] Start: 06-16-2020 End: 04-24-2024 Tobacco use panel [facility] National Score (1-10 0), lower number is lower risk Not on file [facility] Start: 04-24-2024 Tobacco Comment started smokin g at 16 years old [facility] Start: 1984 Sex assigned at Not on file [facility] Functional Status Date Assessment Result Facility 09-15-2023 Functional Status Assistive Device None A [facility] 09-15-2023 Functional Status Standard Safet y ID band on, Call device within reach, Bed in low position, Wheels locked, Upper/Half-Length side-rails up, Phone within reach, Visitor at bedside, Safety level maintained [facility] 06-25-2023 Functional Status Independent [facility] 06-25-2023 Functional Status ID band on, Call device within reach, Bed in low position, Wheels locked, Upper/Half-Length side-rails up, Safety level maintained [facility] Mental Status Date Assessment Result Facility 09-15-2023 Mental Status Orientation Oriented x 4 [facility] 06-25-2023 Mental Status Orientation Oriented x 4 [facility] 06-25-2023 Mental Status [facility] Clinical Notes 05-09-2021 to 04-24-2024 Kofi Tena APRN.CNP - 04/24/2024 7:25 PM EDTRadiologyRadiology Note Date & Type Note Facility 04-24-2024 Note HNO ID: [id number] Author: KOFI TENA APRN.CNP Service: ? Author Type: Nurse Practitioner Type: Progress Notes Filed: 04/24/2024 19:37 Note Text: This note was created using NoteWriter. Subjective Israel Strickland is a 39 year old female. 39 year old female with PMH HTN, hyperlipidemia, RA presents for complaints of illness. Acute onset 4 days ago + cough +chest congestion +nausea +emesis with eating +diarrhea +body aches +fatigue Used Tylenol and Nyquil [facility] at [facility] States that she is experiencing the most discomfort with her complaints of nausea and emesis Endorses that she just ate a chopped ham sandwich prior to arrival. Denies CP Denies SOB or dyspnea Denies abdominal pain The history is provided by the patient. No site interpreter was used. Flu Like Symptoms This is a new problem. The current episode started in the past 7 days. The problem occurs constantly. The problem has been gradually worsening. Associated symptoms include chills, congestion, coughing, fatigue, myalgias, nausea, a sore throat and vomiting. Pertinent negatives include no abdominal pain, anorexia, arthralgias, change in bowel habit, diaphoresis, fever, headaches or rash. Nothing aggravates the symptoms. Treatments tried: Tylenol and Nyquil. The treatment provided no relief. PAST MEDICAL HISTORY Diagnosis Date Abdominal pain, right upper quadrant Gallbladder polyp 05/11/2012 Hyperlipidemia Nausea alone Obesity Pancreatitis PIH ( induced hypertension) PAST SURGICAL HISTORY Procedure Laterality Date DELIVERY ONLY ESOPHAGOGASTRODUODENOSCOPY TRANSORAL DIAGNOSTIC 06/17/12 EGD LAPS SURG CHOLECYSTECTOMY W/CHOLANGIOGRAPHY 08-06-12 ALLERGIES Patient has no known allergies. MEDICATIONS multivit,calc,mins/iron/folic (ONE-A-DAY WOMENS FORMULA ORAL) Take by mouth. dicyclomine (BENTYL) 10 mg capsule Take by mouth. (Patient not taking: Reported on 04/24/2024) ondansetron orally disintegrating (ZOFRAN ODT) 8 mg disintegrating tablet Take 1 tablet by mouth every 8 hours as needed for nausea/vomiting. hydroCHLOROthiazide (HYDRODIURIL, ESIDRIX) 25 mg tablet Take 25 mg by mouth once daily. (Patient not taking: Reported on 04/24/2024) FAMILY HISTORY Problem Relation Age of Onset Alcohol/Drug Mother Breast Cancer Maternal Aunt Diabetes Other MGGM Stroke Maternal Grandmother Hypertension Maternal Grandmother Diabetes Paternal Grandmother Cancer Paternal Grandfather LUNG CANCER Diabetes Father Hypertension Father Hypertension Mother Social History Tobacco Use Smoking status: Every Day Current packs/day: 0.20 Average packs/day: 0.2 packs/day for 10.0 years (2.0 ttl pk-yrs) Types: Cigarettes Smokeless tobacco: Former Quit date: 01/04/2011 Tobacco comments: started smoking at 16 years old Substance Use Topics Alcohol use: No Drug use: Yes Comment: marijuana Review of Systems Constitutional: Positive for chills and fatigue. Negative for diaphoresis and fever. HENT: Positive for congestion and sore throat. Eyes: Negative for pain, discharge, redness and itching. Respiratory: Positive for cough. Gastrointestinal: Positive for nausea and vomiting. Negative for abdominal pain, anorexia and change in bowel habit. Musculoskeletal: Positive for myalgias. Negative for arthralgias. Skin: Negative for rash. Allergic/Immunologic: Negative for environmental allergies, food allergies and immunocompromised state. Neurological: Negative for headaches. Hematological: Positive for adenopathy. Objective BP 180/92 Pulse 72 Temp 36.2 ?C (97.1 ?F) Resp 20 Wt 108 kg (238 lb 1.6 oz) LMP 05/19/2021 SpO2 100% BMI 40.87 kg/m? Physical Exam Vitals and nursing note reviewed. Constitutional: General: She is not in acute distress. Appearance: Normal appearance. She is normal weight. She is not ill-appearing, toxic-appearing or diaphoretic. HENT: Head: Normocephalic and atraumatic. Right Ear: Ear canal and external ear normal. Left Ear: Ear canal and external ear normal. Nose: Congestion present. No rhinorrhea. Mouth/Throat: Mouth: Mucous membranes are moist. Pharynx: Posterior oropharyngeal erythema present. No oropharyngeal exudate. Eyes: General: Right eye: No discharge. Left eye: No discharge. Extraocular Movements: Extraocular movements intact. Conjunctiva/sclera: Conjunctivae normal. Pupils: Pupils are equal, round, and reactive to light. Cardiovascular: Rate and Rhythm: Normal rate and regular rhythm. Pulses: Normal pulses. Heart sounds: Normal heart sounds. No murmur heard. No friction rub. Pulmonary: Effort: Pulmonary effort is normal. No respiratory distress. Breath sounds: Normal breath sounds. No stridor. No wheezing, rhonchi or rales. Chest: Chest wall: No tenderness. Abdominal: General: Abdomen is flat. There is no distension. Palpations: Abdomen is soft. There (more content not included)... [facility] 04-24-2024 History of Present illness Narrative This note was created using Umeng. Subjective Israel Strickland is a 39 year old female. 39 year old female with PMH HTN, hyperlipidemia, RA presents for complaints of illness. Acute onset 4 days ago + cough +chest congestion +nausea +emesis with eating +diarrhea +body aches +fatigue Used Tylenol and Nyquil [facility] at [facility] States that she is experiencing the most discomfort with her complaints of nausea and emesis Endorses that she just ate a chopped ham sandwich prior to arrival. Denies CP Denies SOB or dyspnea Denies abdominal pain The history is provided by the patient. No site interpreter was used. Flu Like Symptoms This is a new problem. The current episode started in the past 7 days. The problem occurs constantly. The problem has been gradually worsening. Associated symptoms include chills, congestion, coughing, fatigue, myalgias, nausea, a sore throat and vomiting. Pertinent negatives include no abdominal pain, anorexia, arthralgias, change in bowel habit, diaphoresis, fever, headaches or rash. Nothing aggravates the symptoms. Treatments tried: Tylenol and Nyquil. The treatment provided no relief. PAST MEDICAL HISTORY Diagnosis Date Abdominal pain, right upper quadrant Gallbladder polyp 05/11/2012 Hyperlipidemia Nausea alone Obesity Pancreatitis PIH ( induced hypertension) PAST SURGICAL HISTORY Procedure Laterality Date DELIVERY ONLY ESOPHAGOGASTRODUODENOSCOPY TRANSORAL DIAGNOSTIC 06/17/12 EGD LAPS SURG CHOLECYSTECTOMY W/CHOLANGIOGRAPHY 08-06-12 ALLERGIES Patient has no known allergies. MEDICATIONS multivit,calc,mins/iron/folic (ONE-A-DAY WOMENS FORMULA ORAL) Take by mouth. dicyclomine (BENTYL) 10 mg capsule Take by mouth. (Patient not taking: Reported on 04/24/2024) ondansetron orally disintegrating (ZOFRAN ODT) 8 mg disintegrating tablet Take 1 tablet by mouth every 8 hours as needed for nausea/vomiting. hydroCHLOROthiazide (HYDRODIURIL, ESIDRIX) 25 mg tablet Take 25 mg by mouth once daily. (Patient not taking: Reported on 04/24/2024) FAMILY HISTORY Problem Relation Age of Onset Alcohol/Drug Mother Breast Cancer Maternal Aunt Diabetes Other MGGM Stroke Maternal Grandmother Hypertension Maternal Grandmother Diabetes Paternal Grandmother Cancer Paternal Grandfather LUNG CANCER Diabetes Father Hypertension Father Hypertension Mother Social History Tobacco Use Smoking status: Every Day Current packs/day: 0.20 Average packs/day: 0.2 packs/day for 10.0 years (2.0 ttl pk-yrs) Types: Cigarettes Smokeless tobacco: Former Quit date: 01/04/2011 Tobacco comments: started smoking at 16 years old Substance Use Topics Alcohol use: No Drug use: Yes Comment: marijuana Review of Systems Constitutional: Positive for chills and fatigue. Negative for diaphoresis and fever. HENT: Positive for congestion and sore throat. Eyes: Negative for pain, discharge, redness and itching. Respiratory: Positive for cough. Gastrointestinal: Positive for nausea and vomiting. Negative for abdominal pain, anorexia and change in bowel habit. Musculoskeletal: Positive for myalgias. Negative for arthralgias. Skin: Negative for rash. Allergic/Immunologic: Negative for environmental allergies, food allergies and immunocompromised state. Neurological: Negative for headaches. Hematological: Positive for adenopathy. Objective BP 180/92 Pulse 72 Temp 36.2 C (97.1 F) Resp 20 Wt 108 kg (238 lb 1.6 oz) LMP 05/19/2021 SpO2 100% BMI 40.87 kg/m Physical Exam Vitals and nursing note reviewed. Constitutional: General: She is not in acute distress. Appearance: Normal appearance. She is normal weight. She is not ill-appearing, toxic-appearing or diaphoretic. HENT: Head: Normocephalic and atraumatic. Right Ear: Ear canal and external ear normal. Left Ear: Ear canal and external ear normal. Nose: Congestion present. No rhinorrhea. Mouth/Throat: Mouth: Mucous membranes are moist. Pharynx: Posterior oropharyngeal erythema present. No oropharyngeal exudate. Eyes: General: Right eye: No discharge. Left eye: No discharge. Extraocular Movements: Extraocular movements intact. Conjunctiva/sclera: Conjunctivae normal. Pupils: Pupils are equal, round, and reactive to light. Cardiovascular: Rate and Rhythm: Normal rate and regular rhythm. Pulses: Normal pulses. Heart sounds: Normal heart sounds. No murmur heard. No friction rub. Pulmonary: Effort: Pulmonary effort is normal. No respiratory distress. Breath sounds: Normal breath sounds. No stridor. No wheezing, rhonchi or rales. Chest: Chest wall: No tenderness. Abdominal: General: Abdomen is flat. There is no distension. Palpations: Abdomen is soft. There is no mass. Tenderness: There is no abdominal tenderness. There is no right CVA tenderness, left CVA tenderness, guarding or rebound. Hernia: No hernia is present. Musculoskeletal: General: No swelling, tenderness, deformity or signs of injury. Normal range of motion. Cervical back: Normal range of motion and neck supple. No rigidity. Right lower leg: No edema. Left lower leg: No edema. Lymphadenopathy: Cervical: Cervical adenopathy present. Skin: General: Skin is warm and dry. Capillary Refill: Capillary refill takes less than 2 seconds. Coloration: Skin is not jaundiced or pale. Findings: No bruising, erythema, lesion or rash. Neurological: General: No focal deficit present. Mental Status: She is alert and oriented to person, place, and time. Cranial Nerves: No cranial nerve deficit. Sensory: No sensory deficit. Motor: No weakness. Coordination: Coordination normal. Gait: Gait normal. Psychiatric: Mood and Affect: Mood normal. Behavior: Behavior normal. Thought Content: Thought content normal. Judgment: Judgment normal. Assessment and Plan ASSESSMENT/PLAN: 1. Viral illness - ICD9: 079.99, ICD10: B34.9 (primary diagnosis) X 4 days Multi symptoms Hemodynamically stable +ill contacts @ [facility] - Symptomatic treatment with prn analgesia - Supportive care with fluids and rest - The patient may also use OTC cough and cold meds as needed, warm salt water gargles, throat lozenges and/or OTC throat spray as needed, and nasal saline gtts and suction prn. - Follow up in 3-5 days if symptoms persist or sooner if worsening of symptoms - COVID & INFLUENZA A/B & RSV PCR, ROUTINE Work note provided 2. Nausea and vomiting, unspecified vomiting type - ICD9: 787.01, ICD10: R11.2 Attribute to viral She ate chip chopped ham RX Zofran BRAT diet - COVID & INFLUENZA A/B & RSV PCR, ROUTINE-obtained and pending Kofi Tena APRN.ABALONE PROCESSOR documented in this encounter [facility] 09-15-2023 Hospital Discharge instructions Patient Education 09/15/2023 20:24:12 Dental Pain Dental Pain A crack or cavity in a tooth can cause tooth pain. This is because the crack or cavity exposes the sensitive inner area of the tooth. An infection in the gum or the root of the tooth can cause pain and swelling. The pain is often made worse when you drink hot or cold beverages. It can also be worse when you bite on hard foods. Pain may spread from the tooth to your ear or the area of the jaw on the same side. Home care Follow these tips when caring for yourself at home: Don't have hot and cold foods and drinks. Your tooth may be sensitive to changes in temperature. Use toothpaste made for sensitive teeth. [place] gently up and down instead of sideways. Brushing sideways can wear away root surfaces if they are exposed. If your tooth is chipped or cracked, or if there is a large open cavity, put oil of cloves directly on the tooth to relieve pain. You can buy oil of cloves at [employer]. Some pharmacies carry an kcvj-oya-eoaczct toothache kit. This contains a paste that you can put on the exposed tooth to make it less sensitive. Put a cold pack on your jaw over the sore area to help reduce pain. You may use gnny-rum-wyyrozi medicine to ease pain, unless your doctor prescribed another medicine. If you have chronic liver or kidney disease, talk with your healthcare provider before using acetaminophen or ibuprofen. Also talk with your provider if you ve had a stomach ulcer or GI bleeding. If you have signs of an infection, you will be given an antibiotic. Take it as directed. Follow-up care Follow up with your dentist, or as advised. Your pain may go away with the treatment given today. But only a dentist can fully look at and treat the cause of your pain. This will keep the pain from coming back. Call 911 Call 911 if any of these occur: Unusual drowsiness Headache or stiff neck Weakness or fainting Difficulty swallowing or breathing When to seek medical advice Call your health care provider right away if any of these occur: Your face becomes swollen or red Pain gets worse or spreads to your neck Fever of 100.4 F (38.0 C) or higher, or as directed by your healthcare provider Pus drains from the tooth [id number] [employer]. [address] [place] [address]. All rights reserved. This information is not intended as a substitute for professional medical care. Always follow your healthcare professional's instructions. Follow Up Care 09/15/2023 19:53:26 With:MIGUELINA BALDWIN MD Address: [address] [place] [address]- When:2-4 days [facility] 09-15-2023 Note Discharge Instructions Thank you for allowing [facility] to assist you with your healthcare needs. The following is important discharge information regarding your hospital visit. Diagnosis from Today's Visit Dental caries What to Do Next Instructions from Your Care Team No qualifying data available. Post Acute Orders No qualifying data available. You Need to Schedule the Following Appointments Follow Up with MIGUELINA BALDWIN MD When Within 2-4 days Where: [address] [place] [address]- Allergies No Known Medication Allergies Medications Please ask your primary doctor or pharmacist before taking any other medication not listed, including over the counter drugs, herbal medications, vitamins and or supplements as they may interact with your home medications. What How Much When Why Instructions Last Dose New acetaminophen-hydrocodone ([place] 325- 5 mg oral tablet) 1 tab(s) by mouth Every 6 hours as needed for for pain Dental caries Duration: 3 Days Printed Prescription New penicillin V potassium (penicillin V potassium 500 mg oral tablet) 1 tab(s) by mouth Four (4) times a day Duration: 10 Days Printed Prescription Please take this list to your next doctor s visit. Bring all medications you take, including over the counter medications, herbals and other supplements with you to your doctor s visit. Patients and families are reminded to discard old lists and to update any records with all medication providers or retail pharmacies. Education Materials Dental Pain A crack or cavity in a tooth can cause tooth pain. This is because the crack or cavity exposes the sensitive inner area of the tooth. An infection in the gum or the root of the tooth can cause pain and swelling. The pain is often made worse when you drink hot or cold beverages. It can also be worse when you bite on hard foods. Pain may spread from the tooth to your ear or the area of the jaw on the same side. Home care Follow these tips when caring for yourself at home: Don't have hot and cold foods and drinks. Your tooth may be sensitive to changes in temperature. Use toothpaste made for sensitive teeth. [place] gently up and down instead of sideways. Brushing sideways can wear away root surfaces if they are exposed. If your tooth is chipped or cracked, or if there is a large open cavity, put oil of cloves directly on the tooth to relieve pain. You can buy oil of cloves at drugstores. Some pharmacies carry an bpyj-okr-iaxuyrk toothache kit. This contains a paste that you can put on the exposed tooth to make it less sensitive. Put a cold pack on your jaw over the sore area to help reduce pain. You may use euel-apb-zktcbpd medicine to ease pain, unless your doctor prescribed another medicine. If you have chronic liver or kidney disease, talk with your healthcare provider before using acetaminophen or ibuprofen. Also talk with your provider if you ve had a stomach ulcer or GI bleeding. If you have signs of an infection, you will be given an antibiotic. Take it as directed. Follow-up care Follow up with your dentist, or as advised. Your pain may go away with the treatment given today. But only a dentist can fully look at and treat the cause of your pain. This will keep the pain from coming back. Call 911 Call 911 if any of these occur: Unusual drowsiness Headache or stiff neck Weakness or fainting Difficulty swallowing or breathing When to seek medical advice Call your health care provider right away if any of these occur: Your face becomes swollen or red Pain gets worse or spreads to your neck Fever of 100.4 F (38.0 C) or higher, or as directed by your healthcare provider Pus drains from the tooth [id number] [employer]. [address] [place] [address], [place] [address]. All rights reserved. This information is not intended as a substitute for professional medical care. Always follow your healthcare professional's instructions. Additional Information VACCINATE! IT SAVES LIVES! Members of the community who have not yet received the COVID-19 vaccine and would like to receive it can visit one of [facility] vaccine clinics. There are many vaccine clinic locations within the [facility]. For locations and available times, please visit [email or web address] It is important to note that some COVID mobile vaccine clinics are held outdoors and may be canceled in rainy or stormy conditions. To learn more about pediatric vaccinations (ages 5-11), we invite you to visit the [facility] webpage. [email or web address] To learn more about the COVID-19 vaccine, we invite you to visit the CDC website for a list of frequently asked questions. https://www.cdc.gov/coronavirus/ 2019-ncov/vaccines/faq.html [facility] Patient Portal Access Instructions: Stay connected with your healthcare team and access your personal medical information anytime with the [facility] Patient Portal. If you would like a full copy of your medical records please contact the [facility] Medical Records Department Sunday through Sunday between 8a.m. and 4:30p.m. Please follow the directions below to access the portal: 1.Access the email account you provided upon registration to the hospital.2.Look for an invitation email from [facility].3.Open the email and access the invitation link: Accept Invitation to [facility].Fill in the required rhoades to create your account. Sign into [email or web address].[email or web address] with your username and password that you created in the above steps to stay up to date. You can then view a summary of results, a summary of your visits, and the ability to download your summaries to your computer or send the information securely to a physician. Remember that your healthcare information is confidential, so carefully consider who you will allow to register on the [facility] Patient Portal for access to your information. You can also access the [facility] Patient Portal on the [employer]. Simply click on Health Records under Health Data and then click on the [employer] logo. HOW TO SAFELY DISPOSE OF PRESCRIPTION MEDICATIONS Please use one of the following methods to safely dispose of your unused medications. 1.Use a drug disposal kit: the drug disposal pouch allows you to safely discard your old and unused drugs. Ask your nurse to give you one when you are discharged.2.Visit a local take-back location: Many local pharmacies and police departments have programs that collect old and unwanted prescription drugs. Call your local pharmacy or go to http://Chatous.Pressmart/0G2Iv4q to find one close to you.3.Make use of household items: Use cat litter or old coffee grounds to dispose medications if other options are not available. Mix your drugs with these household products, seal them in an airtight container and throw it into the garbage. Call [facility]: [phone] to be sure your drugs can be disposed of in this way. Some medicines may require a different approach.4.Never flush your medications down the toilet. IF YOU HAVE BEEN PRESCRIBED AN OPIOIDS FOR PAIN If you have been prescribed an opioid (such as hydrocodone, oxycodone or morphine), it is critical to understand the possible side effects and risks of opioid pain medications. Even when taken as directed, opioids can have several side effects including: Tolerance, meaning you might need to take more of a medication for the same pain relief. Nausea, vomiting and/or constipation. Sleepiness, dizziness, dry mouth, confusion, depression or itching. Physical dependence, meaning you have withdrawal symptoms when a medication is stopped ? this can develop within a few days. KNOW YOUR RESPONSIBILITIES It is important to know exactly how much and how often to take the opioid pain medications you are prescribed. Never take opioids in higher amounts or more often than prescribed. Do not combine opioids with alcohol or other drugs that cause drowsiness, such as benzodiazepines, also known as benzos, including diazepam and alprazolam, muscle relaxants or sleep aids. Never sell or share prescription opioids. This is illegal. Store opioids in a secure place and out of reach of others (including children, family, friends and visitors). The last page(s) of this document has been signed and retained as a CHART COPY Signatures Patient Education Materials Dental Pain Medication Leaflets My discharge plan and instructions have been reviewed and explained to me and IMARQUES NAYISA N understand my current condition and have read and understand these discharge instructions. I have received a written copy of the plan/instructions. If I have questions, I am aware that I should contact my doctor. Patient/Recovery Assistant Signature: Date/Time: Relationship to Patient: Witness Name/Signature: Date/Time: [facility] 07-10-2023 Evaluation + Plan note Future Scheduled TestsUS Pelvis Non-OB W/Transvaginal 07/10/23 [facility] 06-26-2023 Note . MICRO - Microbiology PROCEDURE: Urine Culture [*1] SOURCE: Urine, Clean Catch BODY SITE: COLLECTED DATE/TIME: 06/25/2023 11:15 EST RECEIVED DATE/TIME: 06/25/2023 14:35 EST START DATE/TIME: 06/25/2023 14:35 EST FREE TEXT SOURCE: FINAL REPORTS Final Report [] Verified Date/Time/Personnel: 06/26/2023 13:54 EST <10,000 cfu/ml. No Significant growth. Sensitivity not indicated. Performing Locations *1: This test was performed at: [facility], [address] [place] [address], [id number] , [facility] ([place]) 06-25-2023 Hospital Discharge instructions Patient Education 06/25/2023 11:10:07 High Blood Pressure, Established, Out of Control Uncontrolled High Blood Pressure (Established) Your blood pressure was unusually high today. This can occur if you ve missed doses of your blood pressure medicine. Or it can happen if you are taking other medicines. These include some asthma inhalers, decongestants, diet pills, and street drugs like cocaine and amphetamine. Other causes include: Weight gain More salt in your diet Smoking Caffeine Your blood pressure can also rise if you are emotionally upset or in intense pain. It may go back to normal after a period of rest. Blood pressure measurements are given as 2 numbers. Systolic blood pressure is the upper number. This is the pressure when the heart contracts. Diastolic blood pressure is the lower number. This is the pressure when the heart relaxes between beats. You will see your blood pressure readings written together. For example, a person with a systolic pressure of 118 and a diastolic pressure of 78 will have 118/78 written in the medical record. To be high blood pressure, the numbers must be higher when tested over a period of time. Blood pressure is categorized as normal, elevated, or stage 1 or stage 2 high blood pressure: Normal blood pressure is systolic of less than 120 and diastolic of less than 80 (120/80) Elevated blood pressure is systolic of 120 to 129 and diastolic less than 80 Stage 1 high blood pressure is systolic is 130 to 139 or diastolic between 80 to 89 Stage 2 high blood pressure is when systolic is 140 or higher or the diastolic is 90 or higher Uncontrolled high blood pressure can cause serious health problems. It raises your risk for heart attack, stroke, and heart failure. In general, if you have high blood pressure, keeping your blood pressure below 130/80 mmHg may help prevent these problems. Your healthcare provider may prescribe medicine to help control blood pressure if lifestyle changes are not enough. Home care It s important to take steps to lower your blood pressure. If you are taking blood pressure medicine, the guidelines below may help you need less or no medicines in the future. Start a weight-loss program if you are overweight. Cut back on the amount of salt in your diet: oAvoid high-salt foods like olives, pickles, smoked meats, and salted potato chips. oDon t add salt to your food at the table. oUse only small amounts of salt when cooking. Start an exercise program. Talk with your healthcare provider about what exercise program is best for you. It doesn t have to be difficult. Even brisk walking for 20 minutes 3 times a week is a good form of exercise. Avoid medicines that stimulates the heart. This includes many cpmd-vpn-dudszia cold and sinus decongestant pills and sprays, as well as diet pills. Check the warnings about high blood pressure on the label. Before purchasing any muru-scy-ffovymq medicines or supplements, always ask the pharmacist about the product's potential interaction with your high blood pressure and your medicines. Stimulants such as amphetamine or cocaine could be lethal for someone with high blood pressure. Never take these. Limit how much caffeine you drink. Or switch to noncaffeinated beverages. Stop smoking. If you are a long-time smoker, this can be hard. Enroll in a stop-smoking program to make it more likely that you will succeed. Talk with your provider about ways to quit. Learn how to handle stress better. This is an important part of any program to lower blood pressure. Learn ways to relax. These include meditation, yoga, and biofeedback. If medicines were prescribed, take them exactly as directed. Missing doses may cause your blood pressure to get out of control. If you miss a dose or doses of your medicines, check with your healthcare provider or pharmacist about what to do. Consider buying an automatic blood pressure machine. Your provider may recommend a certain type. You can get one of these at most pharmacies. Measure your blood pressure twice a day, in the morning, and in the late afternoon. Keep a written record of your home blood pressure readings and take the record to your medical appointments. Here are some additional guidelines on home blood pressure monitoring from the [employer] [place] [employer]. Don't smoke or drink coffee for 30 minutes Go to the bathroom before the test. Relax for 5 minutes before taking the measurement. Sit correctly. Be sure your back is supported. Don't sit on a couch or soft chair. Uncross your feet and place them flat on the floor. Place your arm on a solid, flat surface like a table with the upper arm at heart level. Make certain the middle of the cuff is directly above the bend of the elbow. Check the monitor's instruction manual for an illustration. Take multiple readings. When you measure, take 2 or 3 readings one minute apart and record all of the results. Take your blood pressure at the same time every day, or as your healthcare provider recommends. Record the date, time, and blood pressure reading. Take the record with you to your next appointment. If your blood pressure monitor has a built-in memory, simply take the monitor with you to your next appointment. Call your provider if you have several high readings. Don't be frightened by a single high reading, but if you get several high readings, check in with your healthcare provider. Note: When blood pressure reaches a systolic (top number) of 180 or higher or a diastolic (bottom number) of 110 or higher, emergency medical treatment is required. Call your healthcare provider immediately. Follow-up care Regular visits to your own healthcare provider for blood pressure and medicine checks are an important part of your care. Make a follow-up appointment as directed. Bring the record of your home blood pressure readings to the appointment. When to seek medical advice Call your healthcare provider right away if any of these occur: Blood pressure reaches a systolic (top number) of 180 or higher or diastolic (bottom number) of 110 or higher, emergency medical treatment is required. Chest, arm, shoulder, neck, or upper back pain Shortness of breath Severe headache Throbbing or rushing sound in the ears Nosebleed Extreme drowsiness, confusion, or fainting Dizziness or dizziness with spinning sensation (vertigo) Weakness in an arm or leg or on one side of the face Trouble speaking or seeing [id number] [employer]. [address] [place] [address]. All rights reserved. This information is not intended as a substitute for professional medical care. Always follow your healthcare professional's instructions. 06/25/2023 11:09:29 Urine Culture Urine Culture Does this test have other names? Urine culture and sensitivity, urine C&S What is this test? This test checks for bacteria in your urine that could be causing an infection in your urinary tract. The urinary tract includes the kidneys, bladder, ureters, and urethra. The results of a urine culture help your doctor find out what's causing your infection and determine the best way to treat it. Almost 90% of urinary tract infections (UTIs) are caused by E. coli bacteria. Other types of bacteria, tuberculosis, and yeast infections can also cause a urinary tract infection. Why do I need this test? You may need this test if you have symptoms of a UTI. These include: Fever and chills Burning pain when urinating Pain in the back or lower belly Frequent or urgent need to urinate Cloudy or smelly urine What other tests might I have along with this test? Your doctor may also order a urinalysis (UA), which is a urine test to check for white blood cells. He or she may also order a blood test to look for signs of infection in your blood. What do my test results mean? Many things may affect your lab test results. These include the method each lab uses to do the test. Even if your test results are different from the normal value, you may not have a problem. To learn what the results mean for you, talk with your healthcare provider. Urine culture results are given in colony forming units per milliliter (CFU/mL). A negative result means you don't have an infection. A higher bacterial count may mean infection. How is this test done? This test requires a clean-catch urine sample. To collect this type of sample: Carefully wash and dry your hands before removing the cap of the specimen container. Clean the area around the opening of your urethra with an antiseptic pad. Start urinating directly into the toilet, then urinate into the sterile container to collect a sample. Fill the container as instructed. Don't let any part of the container touch your genitals or skin. Recap the container. Does this test pose any risks? This test poses no known risks. What might affect my test results? Taking antibiotics right before the test may affect your results. How do I get ready for this test? Drink enough water before the test so that you can urinate. Don't urinate at least 1 hour before test. Tell your doctor if you have taken antibiotic medicine recently. Be sure your doctor knows about all medicines, herbs, vitamins, and supplements you are taking. This includes medicines that don't need a prescription and any illegal drugs you may use. [id number] [employer]. [address] [place] [address]. All rights reserved. This information is not intended as a substitute for professional medical care. Always follow your healthcare professional's instructions. Follow Up Care 06/25/2023 10:17:08 With:Follow up with primary care provider Address:Unknown When:2-4 days With:Go to emergency room if symptoms worsen Address:Unknown When:2-4 days [facility] 06-25-2023 Note Discharge Instructions Thank you for allowing [facility] to assist you with your healthcare needs. The following is important discharge information regarding your hospital visit. Diagnosis from Today's Visit Possible UTI Urinary frequency What to Do Next Instructions from Your Care Team Resume your blood pressure medicine and have your blood pressure rechecked. Urine culture result will be available in 2 to 3 days. No qualifying data available. Post Acute Orders No qualifying data available. You Need to Schedule the Following Appointments Follow Up with Follow up with primary care provider When Within 2-4 days Follow Up with Go to emergency room if symptoms worsen When Within 2-4 days Allergies No Known Medication Allergies Medications Please ask your primary doctor or pharmacist before taking any other medication not listed, including over the counter drugs, herbal medications, vitamins and or supplements as they may interact with your home medications. What How Much When Instructions Last Dose New nitrofurantoin (Macrobid 100 mg oral capsule) 1 cap by mouth Two (2) times a day Duration: 7 Days Printed Prescription New phenazopyridine (Pyridium 200 mg oral tablet) 1 tab(s) by mouth Three (3) times a day Printed Prescription Please take this list to your next doctor s visit. Bring all medications you take, including over the counter medications, herbals and other supplements with you to your doctor s visit. Patients and families are reminded to discard old lists and to update any records with all medication providers or retail pharmacies. Medication Leaflets phenazopyridine (fen AY skyler PIR i juana) AZO Urinary Pain Relief, AZO Urinary Pain Relief Max Strength, Azo-Standard, Baridium, Prodium, Pyridium, Uricalm, Urinary Pain Relief Maximum Strength, Uristat, Uristat Ultra What is the most important information I should know about phenazopyridine? You should not use phenazopyridine if you have kidney disease. What is phenazopyridine? Phenazopyridine is a pain reliever that affects the lower part of your urinary tract (bladder and urethra). Phenazopyridine is used to treat urinary symptoms such as pain or burning, increased urination, and increased urge to urinate. These symptoms can be caused by infection, injury, surgery, catheter, or other conditions that irritate the bladder. Phenazopyridine will treat urinary symptoms, but this medication will not treat a urinary tract infection.. Take any antibiotic that your doctor prescribes to treat an infection. Phenazopyridine may also be used for purposes not listed in this medication guide. What should I discuss with my health care provider before taking phenazopyridine? You should not use phenazopyridine if you are allergic to it, or if you have kidney disease. To make sure phenazopyridine is safe for you, tell your doctor if you have: liver disease; diabetes; or a genetic enzyme deficiency called rhtoavz-1-matixutoc dehydrogenase (G6PD) deficiency. FDA category B. Phenazopyridine is not expected to harm an unborn baby. Do not use this medicine without a doctor's advice if you are . It is not known whether phenazopyridine passes into breast milk or if it could harm a nursing baby. Do not use this medicine without a doctor's advice if you are breast-feeding a baby. How should I take phenazopyridine? Use exactly as directed on the label, or as prescribed by your doctor. Do not use in larger or smaller amounts or for longer than recommended. Take phenazopyridine after meals. Drink plenty of liquids while you are taking phenazopyridine. Phenazopyridine will most likely darken the color of your urine to an orange or red color. This is a normal effect and is not harmful. Darkened urine may also cause stains to your underwear that may be permanent. Phenazopyridine can also permanently stain soft contact lenses, and you should not wear them while taking this medicine. Do not use phenazopyridine for longer than 2 days unless your doctor has told you to. This medication can cause unusual results with urine tests. Tell any doctor who treats you that you are using phenazopyridine. Store at room temperature away from moisture and heat. What happens if I miss a dose? Take the missed dose as soon as you remember. Skip the missed dose if it is almost time for your next scheduled dose. Do not take extra medicine to make up the missed dose. What happens if I overdose? Seek emergency medical attention or call the Poison Help line at . What should I avoid while taking phenazopyridine? Do not use this medication while wearing soft contact lenses. Phenazopyridine can permanently discolor soft contact lenses. What are the possible side effects of phenazopyridine? Get emergency medical help if you have any of these signs of an allergic reaction: hives; difficult breathing; swelling of your face, lips, tongue, or throat. Stop using phenazopyridine and call your doctor at once if you have: little or no urinating; swelling, rapid weight gain; confusion, loss of appetite, pain in your side or lower back; fever, pale or yellowed skin, stomach pain, nausea and vomiting; or blue or purple appearance of your skin. Common side effects may include: headache; dizziness; or upset stomach. This is not a complete list of side effects and others may occur. Call your doctor for medical advice about side effects. You may report side effects to FDA at 6-195-AXI-5950. What other drugs will affect phenazopyridine? Other drugs may interact with phenazopyridine, including prescription and kchd-pas-jnnodgw medicines, vitamins, and herbal products. Tell each of your health care providers about all medicines you use now and any medicine you start or stop using. Where can I get more information? Your pharmacist can provide more information about phenazopyridine. Remember, keep this and all other medicines out of the reach of children, never share your medicines with others, and use this medication only for the indication prescribed. Every effort has been made to ensure that the information provided by [employer] is accurate, up-to-date, and complete, but no guarantee is made to that effect. Drug information contained herein may be time sensitive. [employer] information has been compiled for use by healthcare practitioners and consumers in the [place] and therefore [employer] does not warrant that uses outside of the [place] are appropriate, unless specifically indicated otherwise. [employer] drug information does not endorse drugs, diagnose patients or recommend therapy. [employer] drug information is an informational resource designed to assist licensed healthcare practitioners in caring for their patients and/or to serve consumers viewing this service as a supplement to, and not a substitute for, the expertise, skill, knowledge and judgment of healthcare practitioners. The absence of a warning for a given drug or drug combination in no way should be construed to indicate that the drug or drug combination is safe, effective or appropriate for any given patient. [employer] does not assume any responsibility for any aspect of healthcare administered with the aid of information [employer] provides. The information contained herein is not intended to cover all possible uses, directions, precautions, warnings, drug interactions, allergic reactions, or adverse effects. If you have questions about the drugs you are taking, check with your doctor, nurse or pharmacist. Copyright 8707-0837 [employer]. Version: 5.01. Revision Date: 02/13/2023. nitrofurantoin (LEDY troe fue RAN toin) Macrobid, Macrodantin What is the most important information I should know about nitrofurantoin? You should not take nitrofurantoin if you have severe kidney disease, urination problems, or a history of jaundice or liver problems caused by nitrofurantoin. Do not take nitrofurantoin during late (from 38 weeks through delivery). What is nitrofurantoin? Nitrofurantoin is an antibiotic that is used to treat urinary tract infections caused by bacteria. Nitrofurantoin may also be used for purposes not listed in this medication guide. What should I discuss with my healthcare provider before taking nitrofurantoin? You should not take nitrofurantoin if you are allergic to it, or if you have: severe kidney disease; urination problems (little or no urination); or a history of jaundice or liver problems caused by taking nitrofurantoin. Do not take nitrofurantoin during late (from 38 weeks through delivery). Tell your doctor if you have ever had: kidney disease; anemia; diabetes; an electrolyte imbalance or vitamin B deficiency; isaveab-7-hvimfocir dehydrogenase (G6PD) deficiency; or any type of debilitating disease. You should not breastfeed a baby younger than 1 month old while you are taking nitrofurantoin. Nitrofurantoin should not be given to a child younger than 1 month old. How should I take nitrofurantoin? Follow all directions on your prescription label and read all medication guides or instruction sheets. Use the medicine exactly as directed. Take nitrofurantoin with food, even if you take it at bedtime. Shake the oral suspension (liquid) before you measure a dose. Use the dosing syringe provided, or use a medicine dose-measuring device (not a kitchen spoon). You may need to keep taking nitrofurantoin for up to 7 days after lab tests show that the infection has cleared. Follow your doctor's instructions. Use this medicine for the full prescribed length of time, even if your symptoms quickly improve. Skipping doses can increase your risk of infection that is resistant to medication. Nitrofurantoin will not treat a viral infection such as the flu or a common cold. This medicine can affect the results of certain medical tests. Tell any doctor who treats you that you are using nitrofurantoin. If you use this medicine long-term, you may need frequent medical tests. Store at room temperature away from moisture, heat, and light. Do not freeze the liquid medicine, and keep the bottle tightly closed when not in use. Throw away any nitrofurantoin liquid that has not been used within 30 days. What happens if I miss a dose? Take the medicine as soon as you can, but skip the missed dose if it is almost time for your next dose. Do not take two doses at one time. What happens if I overdose? Seek emergency medical attention or call the Poison Help line at . Overdose can cause vomiting. What should I avoid while taking nitrofurantoin? Antibiotic medicines can cause diarrhea, which may be a sign of a new infection. If you have diarrhea that is watery or bloody, call your doctor before using anti-diarrhea medicine. Avoid taking an antacid that contains magnesium trisilicate, which could make it harder for your body to absorb nitrofurantoin. What are the possible side effects of nitrofurantoin? Get emergency medical help if you have signs of an allergic reaction (hives, difficult breathing, swelling in your face or throat) or a severe skin reaction (fever, sore throat, burning eyes, skin pain, red or purple skin rash with blistering and peeling). Call your doctor at once if you have: severe stomach pain, diarrhea that is watery or bloody (even if it occurs months after your last dose); vision problems; fever, chills, cough, chest pain, trouble breathing; numbness, tingling, or burning pain in your hands or feet; severe pain behind your eyes; pale skin, weakness; joint pain or swelling with fever, swollen glands, and muscle aches; pain, redness, or swelling in your lower jaw; increased pressure inside the skull--severe headaches, ringing in your ears, dizziness, nausea, vision problems, pain behind your eyes; or signs of liver or pancreas problems--upper stomach pain (that may spread to your back), nausea or vomiting, dark urine, yellowing of the skin or eyes. Side effects may be more likely in older adults. Common side effects may include: headache, dizziness, drowsiness, weakness; gas, indigestion, loss of appetite; nausea, vomiting; muscle or joint pain; rash, itching; or temporary hair loss. This is not a complete list of side effects and others may occur. Call your doctor for medical advice about side effects. You may report side effects to FDA at 7-627-HDI-7894. What other drugs will affect nitrofurantoin? Other drugs may affect nitrofurantoin, including prescription and fdik-rjr-zlwxopj medicines, vitamins, and herbal products. Tell your doctor about all your current medicines and any medicine you start or stop using. Where can I get more information? Your pharmacist can provide more information about nitrofurantoin. Remember, keep this and all other medicines out of the reach of children, never share your medicines with others, and use this medication only for the indication prescribed. Every effort has been made to ensure that the information provided by [employer]. ('[employer]') is accurate, up-to-date, and complete, but no guarantee is made to that effect. Drug information contained herein may be time sensitive. [employer] information has been compiled for use by healthcare practitioners and consumers in the [place] and therefore [employer] does not warrant that uses outside of the [place] are appropriate, unless specifically indicated otherwise. [employer] drug information does not endorse drugs, diagnose patients or recommend therapy. [employer] drug information is an informational resource designed to assist licensed healthcare practitioners in caring for their patients and/or to serve consumers viewing this service as a supplement to, and not a substitute for, the expertise, skill, knowledge and judgment of healthcare practitioners. The absence of a warning for a given drug or drug combination in no way should be construed to indicate that the drug or drug combination is safe, effective or appropriate for any given patient. [employer] does not assume any responsibility for any aspect of healthcare administered with the aid of information [employer] provides. The information contained herein is not intended to cover all possible uses, directions, precautions, warnings, drug interactions, allergic reactions, or adverse effects. If you have questions about the drugs you are taking, check with your doctor, nurse or pharmacist. Copyright 3627-3380 [employer]. Version: 9.02. Revision Date: 09/01/2019. Education Materials Uncontrolled High Blood Pressure (Established) Your blood pressure was unusually high today. This can occur if you ve missed doses of your blood pressure medicine. Or it can happen if you are taking other medicines. These include some asthma inhalers, decongestants, diet pills, and street drugs like cocaine and amphetamine. Other causes include: Weight gain More salt in your diet Smoking Caffeine Your blood pressure can also rise if you are emotionally upset or in intense pain. It may go back to normal after a period of rest. Blood pressure measurements are given as 2 numbers. Systolic blood pressure is the upper number. This is the pressure when the heart contracts. Diastolic blood pressure is the lower number. This is the pressure when the heart relaxes between beats. You will see your blood pressure readings written together. For example, a person with a systolic pressure of 118 and a diastolic pressure of 78 will have 118/78 written in the medical record. To be high blood pressure, the numbers must be higher when tested over a period of time. Blood pressure is categorized as normal, elevated, or stage 1 or stage 2 high blood pressure: Normal blood pressure is systolic of less than 120 and diastolic of less than 80 (120/80) Elevated blood pressure is systolic of 120 to 129 and diastolic less than 80 Stage 1 high blood pressure is systolic is 130 to 139 or diastolic between 80 to 89 Stage 2 high blood pressure is when systolic is 140 or higher or the diastolic is 90 or higher Uncontrolled high blood pressure can cause serious health problems. It raises your risk for heart attack, stroke, and heart failure. In general, if you have high blood pressure, keeping your blood pressure below 130/80 mmHg may help prevent these problems. Your healthcare provider may prescribe medicine to help control blood pressure if lifestyle changes are not enough. Home care It s important to take steps to lower your blood pressure. If you are taking blood pressure medicine, the guidelines below may help you need less or no medicines in the future. Start a weight-loss program if you are overweight. Cut back on the amount of salt in your diet: oAvoid high-salt foods like olives, pickles, smoked meats, and salted potato chips. oDon t add salt to your food at the table. oUse only small amounts of salt when cooking. Start an exercise program. Talk with your healthcare provider about what exercise program is best for you. It doesn t have to be difficult. Even brisk walking for 20 minutes 3 times a week is a good form of exercise. Avoid medicines that stimulates the heart. This includes many eahh-ggs-lknrkkw cold and sinus decongestant pills and sprays, as well as diet pills. Check the warnings about high blood pressure on the label. Before purchasing any pnkd-dso-zbtefsa medicines or supplements, always ask the pharmacist about the product's potential interaction with your high blood pressure and your medicines. Stimulants such as amphetamine or cocaine could be lethal for someone with high blood pressure. Never take these. Limit how much caffeine you drink. Or switch to noncaffeinated beverages. Stop smoking. If you are a long-time smoker, this can be hard. Enroll in a stop-smoking program to make it more likely that you will succeed. Talk with your provider about ways to quit. Learn how to handle stress better. This is an important part of any program to lower blood pressure. Learn ways to relax. These include meditation, yoga, and biofeedback. If medicines were prescribed, take them exactly as directed. Missing doses may cause your blood pressure to get out of control. If you miss a dose or doses of your medicines, check with your healthcare provider or pharmacist about what to do. Consider buying an automatic blood pressure machine. Your provider may recommend a certain type. You can get one of these at most pharmacies. Measure your blood pressure twice a day, in the morning, and in the late afternoon. Keep a written record of your home blood pressure readings and take the record to your medical appointments. Here are some additional guidelines on home blood pressure monitoring from the [employer]. Don't smoke or drink coffee for 30 minutes Go to the bathroom before the test. Relax for 5 minutes before taking the measurement. Sit correctly. Be sure your back is supported. Don't sit on a couch or soft chair. Uncross your feet and place them flat on the floor. Place your arm on a solid, flat surface like a table with the upper arm at heart level. Make certain the middle of the cuff is directly above the bend of the elbow. Check the monitor's instruction manual for an illustration. Take multiple readings. When you measure, take 2 or 3 readings one minute apart and record all of the results. Take your blood pressure at the same time every day, or as your healthcare provider recommends. Record the date, time, and blood pressure reading. Take the record with you to your next appointment. If your blood pressure monitor has a built-in memory, simply take the monitor with you to your next appointment. Call your provider if you have several high readings. Don't be frightened by a single high reading, but if you get several high readings, check in with your healthcare provider. Note: When blood pressure reaches a systolic (top number) of 180 or higher or a diastolic (bottom number) of 110 or higher, emergency medical treatment is required. Call your healthcare provider immediately. Follow-up care Regular visits to your own healthcare provider for blood pressure and medicine checks are an important part of your care. Make a follow-up appointment as directed. Bring the record of your home blood pressure readings to the appointment. When to seek medical advice Call your healthcare provider right away if any of these occur: Blood pressure reaches a systolic (top number) of 180 or higher or diastolic (bottom number) of 110 or higher, emergency medical treatment is required. Chest, arm, shoulder, neck, or upper back pain Shortness of breath Severe headache Throbbing or rushing sound in the ears Nosebleed Extreme drowsiness, confusion, or fainting Dizziness or dizziness with spinning sensation (vertigo) Weakness in an arm or leg or on one side of the face Trouble speaking or seeing [id number] [employer] [place] [address]. All rights reserved. This information is not intended as a substitute for professional medical care. Always follow your healthcare professional's instructions. Urine Culture Does this test have other names? Urine culture and sensitivity, urine C&S What is this test? This test checks for bacteria in your urine that could be causing an infection in your urinary tract. The urinary tract includes the kidneys, bladder, ureters, and urethra. The results of a urine culture help your doctor find out what's causing your infection and determine the best way to treat it. Almost 90% of urinary tract infections (UTIs) are caused by E. coli bacteria. Other types of bacteria, tuberculosis, and yeast infections can also cause a urinary tract infection. Why do I need this test? You may need this test if you have symptoms of a UTI. These include: Fever and chills Burning pain when urinating Pain in the back or lower belly Frequent or urgent need to urinate Cloudy or smelly urine What other tests might I have along with this test? Your doctor may also order a urinalysis (UA), which is a urine test to check for white blood cells. He or she may also order a blood test to look for signs of infection in your blood. What do my test results mean? Many things may affect your lab test results. These include the method each lab uses to do the test. Even if your test results are different from the normal value, you may not have a problem. To learn what the results mean for you, talk with your healthcare provider. Urine culture results are given in colony forming units per milliliter (CFU/mL). A negative result means you don't have an infection. A higher bacterial count may mean infection. How is this test done? This test requires a clean-catch urine sample. To collect this type of sample: Carefully wash and dry your hands before removing the cap of the specimen container. Clean the area around the opening of your urethra with an antiseptic pad. Start urinating directly into the toilet, then urinate into the sterile container to collect a sample. Fill the container as instructed. Don't let any part of the container touch your genitals or skin. Recap the container. Does this test pose any risks? This test poses no known risks. What might affect my test results? Taking antibiotics right before the test may affect your results. How do I get ready for this test? Drink enough water before the test so that you can urinate. Don't urinate at least 1 hour before test. Tell your doctor if you have taken antibiotic medicine recently. Be sure your doctor knows about all medicines, herbs, vitamins, and supplements you are taking. This includes medicines that don't need a prescription and any illegal drugs you may use. 2465-4688 [employer]. [address] [place] [address], [place] [address]. All rights reserved. This information is not intended as a substitute for professional medical care. Always follow your healthcare professional's instructions. Additional Information VACCINATE! IT SAVES LIVES! Members of the community who have not yet received the COVID-19 vaccine and would like to receive it can visit one of [facility] vaccine clinics. There are many vaccine clinic locations within the [facility]. For locations and available times, please visit [email or web address]. [email or web address] It is important to note that some COVID mobile vaccine clinics are held outdoors and may be canceled in rainy or stormy conditions. To learn more about pediatric vaccinations (ages 5-11), we invite you to visit the [employer] webpage. https://www.[facility].org/p ages/9157-Tmear-Dnddmvvpowt-Freq kcactp-Wwrra-Jnhnownat.html To learn more about the COVID-19 vaccine, we invite you to visit the CDC website for a list of frequently asked questions. https://www.cdc.gov/coronavirus/ 2019-ncov/vaccines/faq.html [facility] Patient Portal Access Instructions: Stay connected with your healthcare team and access your personal medical information anytime with the [facility] Patient Portal. If you would like a full copy of your medical records please contact the [facility] Medical Records Department Sunday through Sunday between 8a.m. and 4:30p.m. Please follow the directions below to access the portal: 1.Access the email account you provided upon registration to the hospital.2.Look for an invitation email from [facility].3.Open the email and access the invitation link: Accept Invitation to [facility].Fill in the required rhoades to create your account. Sign into www.[employer] with your username and password that you created in the above steps to stay up to date. You can then view a summary of results, a summary of your visits, and the ability to download your summaries to your computer or send the information securely to a physician. Remember that your healthcare information is confidential, so carefully consider who you will allow to register on the [facility] Patient Portal for access to your information. You can also access the [facility] Patient Portal on the [employer]. Simply click on Health Records under Health Data and then click on the [employer] logo. HOW TO SAFELY DISPOSE OF PRESCRIPTION MEDICATIONS Please use one of the following methods to safely dispose of your unused medications. 1.Use a drug disposal kit: the drug disposal pouch allows you to safely discard your old and unused drugs. Ask your nurse to give you one when you are discharged.2.Visit a local take-back location: Many local pharmacies and police departments have programs that collect old and unwanted prescription drugs. Call your local pharmacy or go to http://bit.Pressmart/3C2Eb7z to find one close to you.3.Make use of household items: Use cat litter or old coffee grounds to dispose medications if other options are not available. Mix your drugs with these household products, seal them in an airtight container and throw it into the garbage. Call [facility]: [phone] to be sure your drugs can be disposed of in this way. Some medicines may require a different approach.4.Never flush your medications down the toilet. IF YOU HAVE BEEN PRESCRIBED AN OPIOIDS FOR PAIN If you have been prescribed an opioid (such as hydrocodone, oxycodone or morphine), it is critical to understand the possible side effects and risks of opioid pain medications. Even when taken as directed, opioids can have several side effects including: Tolerance, meaning you might need to take more of a medication for the same pain relief. Nausea, vomiting and/or constipation. Sleepiness, dizziness, dry mouth, confusion, depression or itching. Physical dependence, meaning you have withdrawal symptoms when a medication is stopped ? this can develop within a few days. KNOW YOUR RESPONSIBILITIES It is important to know exactly how much and how often to take the opioid pain medications you are prescribed. Never take opioids in higher amounts or more often than prescribed. Do not combine opioids with alcohol or other drugs that cause drowsiness, such as benzodiazepines, also known as benzos, including diazepam and alprazolam, muscle relaxants or sleep aids. Never sell or share prescription opioids. This is illegal. Store opioids in a secure place and out of reach of others (including children, family, friends and visitors). The last page(s) of this document has been signed and retained as a CHART COPY Signatures Patient Education Materials High Blood Pressure, Established, Out of Control Urine Culture Medication Leaflets phenazopyridine, nitrofurantoin My discharge plan and instructions have been reviewed and explained to me and IMARQUES NAYISA N understand my current condition and have read and understand these discharge instructions. I have received a written copy of the plan/instructions. If I have questions, I am aware that I should contact my doctor. Patient/Recovery Assistant Signature: Date/Time: Relationship to Patient: Witness Name/Signature: Date/Time: [facility] 05-09-2021 Note HNO ID: [id number] Author: SUSHANT Velasquez Service: Radiology Author Type: [employer] Type: Progress Notes Filed: 05/09/2021 1:06 PM Note Text: Radiology Service Progress Note PATIENT NAME: Israel Strickland DATE OF SERVICE: May 09, 2021 TIME: 1:06 PM PATIENT IDENTITY VERIFICATION COMPLETED USING TWO (2) IDENTIFIERS: Name and Date of confirmed by patient verbally. FALL SCREENING: Has the patient had 2 falls in the last year or 1 fall with injury or currently using an Ambulatory Assistive Device (Walker, Cane, Wheelchair, Crutches, etc.)? No PATIENT GENDER DATA: Female. status: : No status: NO. PATIENT RELEVANT IMPLANT DATA REVIEWED: Not Applicable RADIOLOGY DEPARTMENT: General X-ray: Exam(s) Completed: Spine X-Ray(s): Lumbar AP / LAT / L5-S1 PERIPHERAL IV DATA: Not applicable SIGNED BY: SUSHANT Velasquez May 09, 2021 1:06 PM [facility] Evaluation + Plan note Future Appointments Appointment Date:07/10/2023 09:30:00 AM Scheduled Provider: Location:[facility] Appointment Type:US Pelvis Non-OB W/Transvaginal Diagnostic Tests PendingUrine Culture 06/25/23 Future Scheduled TestsUS Pelvis Non-OB W/Transvaginal 07/10/23 [facility] Evaluation note Diagnosis Viral illness- Primary Unspecified viral infection, in conditions classified elsewhere and of unspecified site Nausea and vomiting, unspecified vomiting type documented in this encounter [facility] course Narrative No data available for this section [facility] Summary Purpose Family History No Family History Records Found No data available for this section No data available for this section No Family History Records FoundNo Family History Records Found Advance Directives No Advanced Directives Records FoundNo Advanced Directives Records FoundNo Advanced Directives Records Found Additional Source Comments INFORMATION SOURCE (unrecogn ized section and content) DATE CREATED AUTHOR 05/28/2021 [facility] DATE CREATED AUTHOR AUTHOR'S ORGANIZ ATION 10/05/2023 [facility] ([place]) DATE CREATED AUTHOR AUTHOR'S ORGANIZ ATION 04/27/2024 [facility] Patient Care team informatio n (unrecognized section and content) Care Team Personnel Name: PHYSICIAN, NONE Position: Physician Member Role: Primary Care Physician Name: Elba Lemus RN Position: AO RN Member Role: ED RN Name: EMMANUEL AMIN MD Position: ED Physician Member Role: ED Physician Address: Address: [facility] [address] [place], [place] [address] Care Team Related Persons Name: BRANDI ADEN Source Comments (unrecognize d section and content) In the event this informatio n is protected by the Federal Confidentiality of Alcohol and Drug Abuse Patient Records regulations: The Federal rules restrict any use of the information to criminally investigate or prosecute any alcohol or drug abuse patient.[facility] Reason for Visit (unrecogniz ed section and content) Reason Comments Cough Chest congestion, di arrhea, nausea x4 days, HENNESSY, light sensitive FOR RECORDS PERTAINING TO PATIENTS WHO ARE OR HAVE BEEN ENROLLED IN A CHEMICAL DEPENDENCY/SUBSTANCEABUSE PROGRAM, SOME INFORMATION MAY BE OMITTED. This clinical summary was aggregated from multiple sources. Caution should be exercised in using it in the provision of clinical care. This summary normalizes information from multiple sources, and as a consequence, information in this document may materially change the coding, format and clinical context of patient data. In addition, data may be omitted in some cases. CLINICAL DECISIONS SHOULD BE BASED ON THE PRIMARY CLINICAL RECORDS. [facility] [employer] [facility] provides no warranty or guarantee of the accuracy or completeness of information in this document.
== END 2024-04-30 00:59 | disposition left against medical advice (07) ==
LOC: ED 01:06
PROVIDERS: Emergency Provider Emergency Medicine; PCP Internal Medicine; Visit Provider Emergency Medicine
DX: Z53.21 Procedure and treatment not carried out due to patient leaving prior to being seen by health care provider (principal)
CPT/HCPCS: 99283